=== PATIENT | female | born 1995 | race Caucasian/White ===

== ENCOUNTER → 2018-07-06 11:59 | Outpatient (CLI) | payer SELFPAY ==
[2018-07-06 12:51] LABS: Basophils % 0.6 % (0.1-2.0); Eosinophils # 0.1 K/mm3 (0.0-0.4); Eosinophils % 2.1 % (0.1-12.0); Hematocrit 42.2 % (37.0-47.0); Hemoglobin 14.8 g/dL (12.2-16.2); Lymphocytes # 2.1 K/mm3 (0.7-4.5); Lymphocytes % 35.6 % (10-50); Mean Corpuscular HGB Conc 35.1 g/dL (31.8-35.4); Mean Corpuscular Hemoglobin 29.7 pg (27.0-31.2); Mean Corpuscular Volume 84.7 fl (81-99); Mean Platelet Volume 6.7 fl (7.4-10.4); Monocytes # 0.3 K/mm3 (0.1-1.0); Monocytes % 4.6 % (1.7-9.3); Neutrophils # 3.3 K/mm3 (1.8-7.8); Neutrophils % 57.2 % (37.0-80.0); Platelet Count 269 K/mm3 (142-424); Red Blood Count 4.98 M/mm3 (4.20-5.40); Red Cell Distribution Width 13.1 % (11.5-17.5); White Blood Count 5.8 K/mm3 (4.8-10.8)
[2018-07-06 13:53] LABS: Alanine Aminotransferase 24 U/L (12-78); Albumin Level 4.5 gm/dL (3.4-5.0); Albumin/Globulin Ratio 1.3 (1.1-1.8); Alkaline Phosphatase 91 U/L (46-116); Anion Gap 12.4 mEq/L (5-15); Aspartate Amino Transferase 15 U/L (15-37); Bilirubin,Total 0.8 mg/dL (0.2-1.0); Blood Urea Nitrogen 16 mg/dL (7-18); Calcium 9.2 mg/dL (8.5-10.1); Carbon Dioxide 29 mmol/L (21.0-32.0); Chloride 103 mmol/L (98-107); Creatinine,Serum 0.72 mg/dL (0.55-1.02); Estimated Glomerular Filt Rate 101 ml/min (>60); GFR (African American) 123 ML/MIN (>60); Globulin 3.6 gm/dl (1.3-3.2); Glucose 81 mg/dL (74-106); Potassium 4.4 mmoL/L (3.5-5.1); Sodium 140 mmol/L (136-145); Thyroid Stimulating Hormone 31.82 uIU/ml (0.358-3.740); Total Protein,Serum 8.1 gm/dL (6.4-8.2)
[2018-07-06 15:45] LABS: Free T4 (Free Thyroxine) 0.64 ng/dl (0.76-1.46)
== END ==
PROVIDERS: Internal Medicine Adolescent Medicine; Visit Provider Nurse Practitioner Family
DX: F41.8 Other specified anxiety disorders (principal); R79.89 Other specified abnormal findings of blood chemistry
CPT/HCPCS: 36415; 80053; 84439; 84443; 85025

== ENCOUNTER → 2018-07-31 13:54 | Outpatient (CLI) | payer BC, SELFPAY ==
--- NOTE | 2018-07-31 14:03 | US_ITS ---
US thyroid HISTORY: ITS.REASON: ELEVATED TSH ORDERING PHYSICIAN: Roxanne Pina APRN PATIENT AGE: 23 years Comparison: None FINDINGS: Right lobe: 1.8 x 4.3 x 2.0 cm. Left lobe: 1.6 x 4.3 x 1.9 cm. Isthmus: Unremarkable. Both thyroid lobes are heterogeneous. There is also some bilateral nonspecific increased vascularity. Posterior to the lower lobe on the left side there is a 8.1 mm solid appearing focus which could be pedunculated nodule or perhaps lymph node. Parathyroid adenoma cannot be ruled out as well. Also noted in the mid left lobe is a small subtle hypoechoic lesion measuring 8.4 mm. IMPRESSION: Heterogeneous thyroid tissue with some increased vascularity. Correlate to rule out thyroiditis. Small nonspecific left lower lobe nodule which could be followed at 6 months. This does not warrant biopsy at this time. Posterior lower pole left thyroid nodule as discussed above. Differential would include lymph node, pedunculated thyroid nodule or parathyroid adenoma.
== END ==
PROVIDERS: PCP Nurse Practitioner Family; Visit Provider Nurse Practitioner Family
DX: R79.89 Other specified abnormal findings of blood chemistry (principal)
CPT/HCPCS: 76536

== ENCOUNTER → 2018-09-04 10:58 | Outpatient (CLI) | payer BC, SELFPAY ==
[2018-09-04 12:04] LABS: Anion Gap 13.2 mEq/L (5-15); Blood Urea Nitrogen 16 mg/dL (7-18); Calcium 9.1 mg/dL (8.5-10.1); Carbon Dioxide 29 mmol/L (21.0-32.0); Chloride 105 mmol/L (98-107); Creatinine,Serum 0.82 mg/dL (0.55-1.02); Estimated Glomerular Filt Rate 87 ml/min (>60); Free T4 (Free Thyroxine) 1.07 ng/dl (0.76-1.46); GFR (African American) 105 ML/MIN (>60); Glucose 84 mg/dL (74-106); Potassium 4.2 mmoL/L (3.5-5.1); Sodium 143 mmol/L (136-145); Thyroid Stimulating Hormone 2.13 uIU/ml (0.358-3.740)
[2018-09-07 10:37] LABS: Thyroglobulin Level 4.2 IU/mL (0.0-0.9); Thyroid Peroxidase Antibodies 261 IU/mL (0-34); Vitamin D 25 Hydroxy 40.5 ng/mL (30.0-100.0)
== END ==
PROVIDERS: Visit Provider Nurse Practitioner Family
DX: E03.9 Hypothyroidism, unspecified (principal)
CPT/HCPCS: 36415; 80048; 82652; 84439; 84443; 86376; 86800

== ENCOUNTER → 2018-11-13 13:19 | Outpatient (CLI) | payer BC, SELFPAY ==
[2018-11-13 15:51] LABS: Free T4 (Free Thyroxine) 0.95 ng/dl (0.76-1.46); Thyroid Stimulating Hormone 2.83 uIU/ml (0.358-3.740)
== END ==
PROVIDERS: Visit Provider Nurse Practitioner Family
DX: E06.3 Autoimmune thyroiditis (principal)
CPT/HCPCS: 36415; 84439; 84443

== ENCOUNTER → 2020-01-30 11:57 | Outpatient (CLI) | payer BC, SELFPAY ==
[2020-01-30 13:34] LABS: Adenovirus,PCR Not Detected (NotDetected); Bordetella Pertussis Not Detected (NotDetected); Chlamydophila Pneumoniae, PCR Not Detected (NotDetected); Coronavirus 19, PCR Not Detected (NotDetected); Coronavirus 229E Not Detected (NotDetected); Coronavirus NL63 Not Detected (NotDetected); Coronavirus OC43 Not Detected (NotDetected); Coronovirus HKU1,PCR Not Detected (NotDetected); Human Metapneumovirus Not Detected (NotDetected); Influenza A, PCR Not Detected (NotDetected); Influenza AH1, 2009 Not Detected (NotDetected); Influenza AH1, PCR Not Detected (NotDetected); Influenza AH3,PCR Not Detected (NotDetected); Influenza B, PCR Not Detected (NotDetected); Mycoplasma Pneumoniae, PCR Not Detected (NotDetected); Parainfluenza 1, PCR Not Detected (NotDetected); Parainfluenza 2, PCR Not Detected (NotDetected); Parainfluenza 3, PCR Not Detected (NotDetected); Parainfluenza 4, PCR Not Detected (NotDetected); Respiratory Syncytial Virus Not Detected (NotDetected); Rhinovirus/Enterovirus Not Detected (NotDetected)
== END ==
PROVIDERS: PCP Internal Medicine Adolescent Medicine; Visit Provider Internal Medicine Adolescent Medicine
DX: Z03.818 Encounter for observation for suspected exposure to other biological agents ruled out (principal)
CPT/HCPCS: 87581; 87633; 87798

== ENCOUNTER 2020-02-25 12:05 | Emergency (ER) | payer BC, SELFPAY ==
[2020-02-25 12:05] VITALS: BP 102/58; PULSE 94; RESP 14; TEMP 36.2; O2SAT 97; BMI 22.8
--- NOTE | 2020-02-25 12:46 | HMH.EDUTC ---
[facility] Disposition Clinical Impression: Encounter for laboratory testing for COVID-19 virus Disposition: Home, Self-Care Condition on Discharge: Good Instructions: DI for COVID-19 (Suspected or Confirmed ), Coronavirus Disease 2019, Preventing the Spread of Coronavirus Discharge Instructions Additional Instructions: *Monitor Temp, Over the counter Motrin or Tylenol as directed/as needed Tylenol every 4 hours and Motrin every 6 hours (as long as your family doctor has told you that you can take it) for fever or pain. and straight to ER if unable to lower temp less than 101.0 after medication given Follow up IMMEDIATELY for new or worsening symptoms or no Noticeable improvement over the next 48-72 hours. 911 for difficulty breathing or swallowing You were tested for today for COVID19 your test result should be back in the next 24-48 hours, you may call to the [facility] to see if your test results are back in the next 48 hours [phone] [facility] hours are 9am-9pm You was given a handout with instructions for Self Quarantine and Self isolation for while you wait on test results and what to do if they are positive If you are positive the Health Dept will be contacting you also Referrals: Chago Ireland MD [Primary Care Provider] - As needed Forms: Work/School Release Time of Disposition: 12:48 Medical Decision Making - Dariel Inquiry Pt receiving controlled substance: No Dariel was queried for this patient: No Vital Signs: 02/25/20 12:05 Temperature 97.2 F L Temperature Source Oral Pulse Rate [Right Brachial] 94 H Respiratory Rate 14 Blood Pressure [Right Arm] 102/58 L Blood Pressure Mean [Right Arm] 72 Blood Pressure Source [Right Arm] Automatic Cuff Blood Pressure Position [Right Arm] Sitting 02 Sat by Pulse Oximetry 97 Oxygen Delivery Method Room Air Orders (Tests/Meds): ORDERS Category Date Time Status Covid-19 Nasal PCR Sendout P&C Routine Lab 02/25/20 12:15 Received [facility] HPI - General Stated complaint: covid test for work Time Seen by Provider: 02/25/20 12:46 Mode of Arrival: Ambulatory Source of Information: Patient Limitations: No Limitations Description of Symptoms (Recalled from Triage Doc. by RN): PATIENT NEEDING COVID TEST FOR WORK HEENT Symptoms (Recalled from RN notes): No Resp Symptoms (Recalled from RN notes): No Skin Symptoms (Recalled from RN notes): No MS Symptoms (Recalled from RN notes): No Functional Status (Recalled from RN notes): WNL - History of Present Illness Provider Complaint: Patient state that work told her that she needed to get tested for COVID due to possible exposure State that she is not having any symptoms just needed a COVID test - Related Data Allergies Allergy/AdvReac Type Severity Reaction Status Date / Time Sulfa (Sulfonamide Allergy Intermediate I-HIVES Verified 02/25/20 12:25 Antibiotics) [SULFA (SULFONAMIDE ANTIBIOTICS)] - Worker's Comp Is this a Worker's Comp case?: No [facility] History - Hepatitis A Screen Drug use history?: No High risk sexual behaviors?: No History of sexually transmitted infection?: No Currently employed?: No Childcare worker?: No Do you have indoor plumbing?: Yes Do you have electricity?: Yes Attestation statement:: This patient has been screened for Hepatitis A risk factors. I have reviewed the patient's past medical history: Yes - Social History Alcohol Intake: never Occupational Status: other ROS Obtained: Yes All systems reviewed & no additional complaints, Yes Systems reviewed as appropriate & no additional complaints - Constitutional Constitutional: Reports system reviewed and no additional complaints, except as docu, Denies body ache, Denies chills, Denies fever(s), Denies headache(s) - ENT Ears, Nose, Mouth, and Throat: Reports system reviewed and no additional complaints, except as docu - Cardiovascular Cardiovascular: Reports system reviewed and no additional complaints, except as docu
[2020-02-25 12:50] VITALS: BP 102/58; PULSE 94; RESP 14; TEMP 36.2; O2SAT 97
[2020-02-26 09:49] LABS: Covid-19 Nasal PCR Sendout P&C NEGATIVE
== END 2020-02-25 13:01 | disposition home or self-care (01) ==
PROVIDERS: Emergency Provider Nurse Practitioner; PCP Internal Medicine Adolescent Medicine
DX: Z20.822 Contact with and (suspected) exposure to COVID-19 (principal); Z88.2 Allergy status to sulfonamides
CPT/HCPCS: 99202; G0463; U0004

== ENCOUNTER 2020-05-09 22:55 | Emergency (ER) | payer BC, SELFPAY ==
[2020-05-09 22:56] VITALS: BP 127/84; PULSE 89; RESP 22; TEMP 36.4; O2SAT 100; BMI 23.8
[2020-05-09 23:30] VITALS: BP 101/74; PULSE 78; RESP 16; O2SAT 99
[2020-05-09 23:45] LABS: Microscopic, Urine URINE MICROSCOPIC (MICROSCOPIC)
[2020-05-09 23:48] LABS: Appearance,Urine CLEAR (Clear); Bilirubin,Urine Negative (Negative); Blood, Urine 2+ (Negative); Color,Urine YELLOW (Yellow); Glucose,Urine (UA) Negative (Negative); Ketones,Urine Negative (Negative); Leukocyte Esterase,Urine 1+ (Negative); Nitrate,Urine Negative (Negative); Protein,Urine Negative (Negative); Specific Gravity, Urine 1.025 (1.005-1.030); Urobilinogen,Urine 0.2 EU/dl (0.2)
[2020-05-09 23:52] LABS: Basophils # 0.1 K/mm3 (0-0.2); Basophils % 0.5 % (0.1-2.0); Eosinophils # 0.2 K/mm3 (0.0-0.4); Eosinophils % 2.4 % (0.1-12.0); Hematocrit 41.2 % (37.0-47.0); Hemoglobin 14.1 g/dL (12.2-16.2); Lymphocytes # 2.5 K/mm3 (0.7-4.5); Lymphocytes % 25.2 % (10-50); Mean Corpuscular HGB Conc 34.3 g/dL (31.8-35.4); Mean Corpuscular Hemoglobin 30.4 pg (27.0-31.2); Mean Corpuscular Volume 88.8 fl (81-99); Mean Platelet Volume 7.3 fl (7.4-10.4); Monocytes # 0.5 K/mm3 (0.1-1.0); Monocytes % 5.3 % (1.7-9.3); Neutrophils # 6.6 K/mm3 (1.8-7.8); Neutrophils % 66.7 % (37.0-80.0); Platelet Count 269 K/mm3 (142-424); Red Blood Count 4.64 M/mm3 (4.20-5.40); Red Cell Distribution Width 12.8 % (11.5-17.5); White Blood Count 9.9 K/mm3 (4.8-10.8)
[2020-05-09 23:54] LABS: Urine Pregnancy, HCG Qual. Negative (Negative)
[2020-05-10] VITALS: BP 109/64; PULSE 75; RESP 16; O2SAT 99
[2020-05-10] LABS: Alanine Aminotransferase 15 U/L (12-78); Albumin/Globulin Ratio 1.5 (1.1-1.8); Alkaline Phosphatase 71 U/L (38-126); Amylase 73 U/L (30-110); Anion Gap 14.3 mEq/L (5-15); Aspartate Amino Transferase 27 U/L (14-36); Bilirubin,Total 0.5 mg/dl (0.2-1.3); Blood Urea Nitrogen 14 mg/dl (7-17); Calcium 9.5 mg/dl (8.4-10.2); Carbon Dioxide 24 mmol/L (22.0-30.0); Chloride 109 mmol/L (98-107); Creatinine Clearance Estimated 101 mL/min (50-200); Estimated Glomerular Filt Rate 88 ml/min (>60); GFR (African American) 107 ML/MIN (>60); Globulin 3.3 g/dL (1.3-3.2); Glucose 80 mg/dl (74-100); Lipase 81 U/L (23-300); Potassium 3.3 mmoL/L (3.5-5.1); Sodium 144 mmol/L (136-145); Total Protein,Serum 8.3 g/dl (6.3-8.2)
--- NOTE | 2020-05-10 00:01 | CT_ITS ---
PROCEDURE: CT ABDOMEN PELVIS W CON CLINICAL INDICATION: abd pain With nausea and diarrhea COMPARISON: No exams were available for comparison TECHNIQUE: IV Contrast: 75ML OPTIRAY 350 Oral Contrast none given Axial images obtained with sagittal and coronal reformats. All CT scans at the facility use one or more dose reduction, viz: automated exposure control, ma/kV adjustment per patient size (including targeted exams where dose is matched to indication, i.e. head), or iterative reconstruction technique. FINDINGS: Lower thorax: No acute finding ABDOMEN: Liver: No masses or biliary dilatation. Gallbladder: Somewhat contracted but no definite gallstones are seen Pancreas: No masses or peripancreatic fluid collections. Spleen: unremarkable Adrenals: unremarkable Kidneys/ureters: The kidneys appear normal in size and show symmetrical function. There is an 6-7 mm mm nonobstructing calculus lower pole calyx left kidney. ABDOMEN & PELVIS: Stomach bowel: The stomach is distended with ingested food particles but otherwise appears normal. The small bowel is normal. The appendix is not definitely visualized but no pericecal inflammatory changes. There is some liquid stool in the ascending colon, lower descending sigmoid colon are decompressed. Peritoneum: No abnormal fluid collections. No obvious inflammatory changes. No free air. Lymph nodes: No enlarged lymph nodes apparent. Vasculature: No evidence of abdominal aortic aneurysm. No retroperitoneal hemorrhage evident. Bones: No acute fracture PELVIS: Reproductive: The uterus is normal size and in the midline Bladder: . urinary bladder is decompressed, there is no free fluid in the pelvis Appendix: Not definitely visualized IMPRESSION: Findings consistent with history of diarrhea, there is no evidence of large or small small-bowel obstruction and no other significant abnormality is noted Dictated by: Dr. Darrell Bailey MD 05/10/2020 09:36 Dr. Darrell Bailey MD in [place] 05/10/2020 09:36
[2020-05-10 00:03] LABS: Bacteria,Urine 3+ /lpf; RBC,Urine Occasional #/hpf (0-3); Squamous Epithelial Cell,Urine 50-100 #/hpf (0-5); WBC,Urine 20-50 #/hpf (0-3)
[2020-05-10 00:05] LABS: C-Reactive Protein 0.5 mg/L (0-4)
[2020-05-10 00:19] LABS: Procalcitonin 0.044 ng/mL (0.0-2.0)
[2020-05-10 00:29] LABS: Erythrocyte Sedimentation Rate 20 mm/hr (0-20)
[2020-05-10 00:30] VITALS: BP 104/71; PULSE 68; RESP 16; O2SAT 99
--- NOTE | 2020-05-10 00:43 | HMH.EDNVD ---
ED Disposition Clinical Impression: Abdominal pain Qualifiers: Abdominal location: epigastric Qualified Code(s): R10.13 - Epigastric pain Adverse effects of medication Qualifiers: Encounter type: initial encounter Qualified Code(s): T50.905A - Adverse effect of unspecified drugs, medicaments and biological substances, initial encounter Disposition: Home, Self-Care Condition on Discharge: Good Instructions: DI for Acute Abdominal Pain Additional Instructions: fluids and call pcp about urine culture - hold flagyl at this tiime Prescriptions: ondansetron HCL [Zofran 4mg Tab] 4 mg PO TID #21 tab Transmission Status: Pending to [id number] Referrals: Chago Ireland MD [Primary Care Provider] - - Critical Care Critical Care Time: No Attestation: On 05/09/20, the high probability of a clinically significant, sudden or life threatening deterioration of the following system(s) required my full and direct attention, intervention and personal management. The time I documented below is in addition to time spent performing reported procedures but includes the following listed in this critical care notation. Medical Decision Making - Medical Records Medical records reviewed: Yes: I reviewed the patient's medical records. - Dariel Inquiry Pt receiving controlled substance: No Vital Signs: 05/09/20 22:56 Temperature 97.6 F Temperature Source Oral Pulse Rate [Right Radial] 89 Respiratory Rate 22 Blood Pressure [Right Arm] 127/84 Blood Pressure Mean [Right Arm] 98 Blood Pressure Source [Right Arm] Automatic Cuff Blood Pressure Position [Right Arm] Sitting 02 Sat by Pulse Oximetry 100 Oxygen Delivery Method Room Air - Lab Data Lab results reviewed: Yes: I reviewed the patient's lab results. Lab Results 05/09/20 23:25: Urine Color Yellow, Urine Appearance Clear, Urine pH 6.0, Ur Specific [place] 1.025, Urine Protein Negative, Urine Glucose (UA) Negative, Urine Ketones Negative, Urine Blood 2+, Urine Nitrate Negative, Urine Bilirubin Negative, Urine Urobilinogen 0.2, Ur Leukocyte Esterase 1+ A, Urine RBC Occasional, Urine WBC 20-50, Ur Squamous Epith Cells 50-100, Urine Bacteria 3+ 05/09/20 23:25: Urine HCG, Qual Negative 05/09/20 23:45: WBC 9.9, RBC 4.64, Hgb 14.1, Hct 41.2, MCV 88.8, MCH 30.4, MCHC 34.3, RDW 12.8, Plt Count 269, MPV 7.3 L, Neut % (Auto) 66.7, Lymph % (Auto) 25.2, [place] % (Auto) 5.3, Eos % (Auto) 2.4, Baso % (Auto) 0.5, Neut # (Auto) 6.6, Lymph # (Auto) 2.5, [place] # (Auto) 0.5, Eos # (Auto) 0.2, Baso # (Auto) 0.1, ESR 20 05/09/20 23:45: Sodium 144, Potassium 3.3 L, Chloride 109 H, Carbon Dioxide 24, Anion Gap 14.3, BUN 14, Creatinine 0.80, Estimated Creat Clear 101, Estimated GFR 88, Est GFR ( Amer) 107, Glucose 80, Calcium 9.5, Total Bilirubin 0.5, AST 27, ALT 15, Alkaline Phosphatase 71, C-Reactive Protein 0.5, Total Protein 8.3 H, Albumin 5.0, Globulin 3.3 H, Albumin/Globulin Ratio 1.5, Amylase 73, Lipase 81, Procalcitonin 0.044 Result diagrams: 05/09/20 23:45 05/09/20 23:45 Orders (Tests/Meds): ED MEDICATIONS Generic Name Dose Route Start Last Admin Trade Name Freq PRN Reason Stop Dose Admin Sodium Chloride 1,000 mls @ 999 mls/hr 05/09/20 23:45 05/09/20 23:59 Sod Chlor 0.9% 1000ml Bag IV 05/10/20 00:45 999 mls/hr .Q1H1M DELIA Administration Discontinued Medications Generic Name Dose Route Start Last Admin Trade Name Freq PRN Reason Stop Dose Admin Iopamidol 75 ml 05/10/20 00:18 05/10/20 00:20 Iopamidol-370 (76%);100ml Bottle IV 05/10/20 00:19 75 ml ONCE ONE Administration Ketorolac Tromethamine 30 mg 05/09/20 23:41 05/09/20 23:59 Ketorolac 30mg/Ml Vial IV 05/09/20 23:42 30 mg ONCE ONE Administration Methylprednisolone Sodium Succinate 125 mg 05/10/20 00:46 05/10/20 00:47 Methylprednisolone Sod Succ 125mg Vial IV 05/10/20 00:47 125 mg ONCE ONE Administration Ondansetron HCl 4 mg 05/09/20 23:41 05/09/20 23:59 Ondanset
[2020-05-10 01:48] VITALS: BP 94/58; PULSE 77; RESP 16; TEMP 36.6; O2SAT 100
== END 2020-05-10 01:50 | disposition home or self-care (01) ==
PROVIDERS: Emergency Provider Emergency Medicine; PCP Internal Medicine Adolescent Medicine
DX: R10.12 Left upper quadrant pain (principal); T49.0X5A Adverse effect of local antifungal, anti-infective and anti-inflammatory drugs, initial encounter; Z88.2 Allergy status to sulfonamides
CPT/HCPCS: 74177; 80053; 81001; 81025; 82150; 83690; 84145; 85025; 85651; 86140; 87086; 96365; 96375; 99283; J2405; Q9967

== ENCOUNTER → 2020-06-16 14:55 | Outpatient (CLI) | payer BC, SELFPAY ==
--- NOTE | 2020-06-16 14:57 | US_ITS ---
PROCEDURE: US THYROID CLINICAL INDICATION: hypo COMPARISON: US THY US thyroid from 07/31/2018 FINDINGS: Right lobe: 4.7 x 2 x 1.8 centimeters Left lobe: 4.7 x 2.1 x 1.9 centimeters Isthmus: 0.5 centimeters Additional findings: Heterogeneous echogenicity of the thyroid gland is noted. No focal nodules are identified on the background of heterogeneously echogenic thyroid tissue. Thyromegaly is noted. There is bilateral increased vascularity. IMPRESSION: Heterogeneous enlarged thyroid gland, consistent with known hypothyroidism. No focal nodules are identified on the background of heterogeneously echogenic thyroid tissue. Dictated by: Caridad Gay 06/16/2020 17:05 Caridad Gay in [place] 06/16/2020 17:05
[2020-06-16 16:25] LABS: Free T4 (Free Thyroxine) 0.92 ng/dl (0.78-2.19)
[2020-06-16 16:40] LABS: Thyroid Stimulating Hormone 8.56 uIU/mL (0.465-4.68)
[2020-07-05 11:34] LABS: Thyroid Peroxidase Antibodies 262; Thyroid Stimulating Immunoglob <0.10
== END ==
PROVIDERS: PCP Internal Medicine Adolescent Medicine; Visit Provider Otolaryngology
DX: E03.9 Hypothyroidism, unspecified (principal)
CPT/HCPCS: 36415; 76536; 84439; 84443; 84445; 86376

== ENCOUNTER → 2020-06-16 15:16 | Outpatient (CLI) | payer BC, SELFPAY | PROVIDERS: Visit Provider Otolaryngology | DX: E03.9 Hypothyroidism, unspecified (principal) | CPT/HCPCS: 36415; 84439; 84443; 84445; 86376 ==

== ENCOUNTER → 2020-07-27 17:05 | Outpatient (CLI) | payer BC, SELFPAY ==
[2020-07-27 19:08] LABS: Free T4 (Free Thyroxine) 0.92 ng/dl (0.78-2.19)
[2020-07-27 19:22] LABS: Thyroid Stimulating Hormone 6.23 uIU/mL (0.465-4.68)
[2020-07-29 09:54] LABS: Thyroid Peroxidase Antibodies 256 IU/mL (0-34)
[2020-07-30 05:16] LABS: Thyroid Stimulating Immunoglob <0.10 IU/L (0.00-0.55)
== END ==
PROVIDERS: PCP Internal Medicine Adolescent Medicine; Visit Provider Otolaryngology
DX: E03.9 Hypothyroidism, unspecified (principal)
CPT/HCPCS: 36415; 84439; 84443; 84445; 86376

== ENCOUNTER → 2020-11-19 08:58 | Outpatient (CLI) | payer BC, SELFPAY | PROVIDERS: Visit Provider Nurse Practitioner Family | DX: R30.0 Dysuria (principal) | CPT/HCPCS: 87086 ==

== ENCOUNTER → 2021-01-07 12:43 | Outpatient (CLI) | payer BC, SELFPAY ==
[2021-01-07 13:08] VITALS: BMI 25.7
== END ==
PROVIDERS: PCP Internal Medicine Adolescent Medicine; Visit Provider Nurse Practitioner
DX: U07.1 COVID-19 (principal)
CPT/HCPCS: C9803; U0003; U0005

== ENCOUNTER 2021-03-24 23:37 | Emergency (ER) | payer BC, SELFPAY ==
[2021-03-24 23:38] VITALS: BP 124/76; PULSE 94; RESP 19; TEMP 36.9; O2SAT 100; BMI 21.9
[2021-03-25 00:15] VITALS: BMI 21.9
[2021-03-25 00:20] LABS: Microscopic, Urine URINE MICROSCOPIC (MICROSCOPIC)
[2021-03-25 00:22] LABS: Appearance,Urine SL CLOUDY (Clear); Bilirubin,Urine Negative (Negative); Blood, Urine Negative (Negative); Color,Urine YELLOW (Yellow); Glucose,Urine (UA) Negative (Negative); Ketones,Urine Negative (Negative); Leukocyte Esterase,Urine 1+ (Negative); Nitrate,Urine Negative (Negative); Protein,Urine Negative (Negative); Specific Gravity, Urine >= 1.030 (1.005-1.030); Urobilinogen,Urine 0.2 EU/dl (0.2)
[2021-03-25 00:29] LABS: Bacteria,Urine 2+ /lpf; RBC,Urine Occasional #/hpf (0-3); Urine Pregnancy, HCG Qual. Negative (Negative)
--- NOTE | 2021-03-25 00:37 | CT_ITS ---
PROCEDURE INFORMATION: Exam: CT Abdomen And Pelvis With Contrast Exam date and time: 03/25/2021 12:37 AM Age: 25 years old Clinical indication: Abdominal pain; Additional info: Upper abd pain with nausea TECHNIQUE: Imaging protocol: Computed tomography of the abdomen and pelvis with contrast. Radiation optimization: All CT scans at this facility use at least one of these dose optimization techniques: automated exposure control; mA and/or kV adjustment per patient size (includes targeted exams where dose is matched to clinical indication); or iterative reconstruction. Contrast material: ISOVUE; Contrast volume: 75 ml; Contrast route: IV; COMPARISON: CT ABDOMEN PELVIS W CON 05/10/2020 12:09 AM FINDINGS: Lungs: Hyperexpansion/air trapping noted in the posterior basal segment of the left lower lobe, similar to prior. Liver: Unremarkable. No intrahepatic biliary dilation. Gallbladder and bile ducts: No gallbladder wall thickening. No radio-opaque stones. No common bile duct dilation. Pancreas: Unremarkable. No main pancreatic duct dilation. Spleen: Normal. No splenomegaly. Adrenal glands: Unremarkable. Kidneys and ureters: Nonobstructing 0.4 cm caliceal calculus at the left lower pole, unchanged. No hydronephrosis. Stomach and bowel: No obstruction. No abnormal bowel wall thickening. Appendix: No evidence of appendicitis. Intraperitoneal space: Trace nonspecific pelvic free fluid, possibly physiologic. Vasculature: No abdominal aortic aneurysm. Lymph nodes: Scattered prominent mesenteric lymph nodes, not frankly enlarged and likely reactive. Urinary bladder: Unremarkable as visualized. No wall thickening. Reproductive: Left ovarian corpus luteum cyst. There is a 2.4 x 2.0 cm complex right ovarian cystic mass measuring above simple fluid attenuation. Bones/joints: No acute fracture. Soft tissues: Unremarkable. IMPRESSION: 1. Indeterminate 2.4 x 2.0 cm complex right ovarian cyst, new since 05/10/2020. Further evaluation with prompt non-emergent ultrasound or prompt non-emergent MRI is recommended to characterize. (Reference: Stanley) 2. Trace nonspecific pelvic free fluid, could be physiologic. 3. Nonobstructing 0.4 cm left lower pole renal calculus. References: Stanley et al. Management of Incidental Adnexal Findings on CT and MRI: A White Paper of the ACR Incidental Findings Committee, J Am Luis Radiol. 2019;17(2):248-254.
[2021-03-25 00:42] LABS: Basophils # 0.1 K/mm3 (0-0.2); Basophils % 0.5 % (0.1-2.0); Eosinophils # 0.2 K/mm3 (0.0-0.4); Eosinophils % 1.2 % (0.1-12.0); Hematocrit 45.6 % (37.0-47.0); Hemoglobin 15.5 g/dL (12.2-16.2); Lymphocytes # 2.3 K/mm3 (0.7-4.5); Lymphocytes % 17.9 % (10-50); Mean Corpuscular HGB Conc 33.9 g/dL (31.8-35.4); Mean Corpuscular Hemoglobin 30.6 pg (27.0-31.2); Mean Corpuscular Volume 90.5 fl (81-99); Mean Platelet Volume 7.4 fl (7.4-10.4); Monocytes # 0.5 K/mm3 (0.1-1.0); Monocytes % 4.2 % (1.7-9.3); Neutrophils # 9.8 K/mm3 (1.8-7.8); Neutrophils % 76.3 % (37.0-80.0); Platelet Count 284 K/mm3 (142-424); Red Blood Count 5.05 M/mm3 (4.20-5.40); Red Cell Distribution Width 12.8 % (11.5-17.5); White Blood Count 12.8 K/mm3 (4.8-10.8)
[2021-03-25 00:49] LABS: Amylase 72 U/L (30-110)
[2021-03-25 00:50] LABS: Alanine Aminotransferase 18 U/L (12-78); Albumin Level 5.1 g/dl (3.5-5.0); Albumin/Globulin Ratio 1.5 (1.1-1.8); Alkaline Phosphatase 75 U/L (38-126); Anion Gap 15.1 mEq/L (5-15); Aspartate Amino Transferase 30 U/L (14-36); Bilirubin,Total 0.7 mg/dl (0.2-1.3); Blood Urea Nitrogen 13 mg/dl (7-17); Calcium 10.1 mg/dl (8.4-10.2); Carbon Dioxide 28 mmol/L (22.0-30.0); Chloride 102 mmol/L (98-107); Creatinine Clearance Estimated 106 mL/min (50-200); Estimated Glomerular Filt Rate 103 ml/min (>60); GFR (African American) 124 ML/MIN (>60); Globulin 3.5 g/dL (1.3-3.2); Glucose 110 mg/dl (74-100); Lipase 64 U/L (23-300); Potassium 4.1 mmoL/L (3.5-5.1); Sodium 141 mmol/L (136-145); Total Protein,Serum 8.6 g/dl (6.3-8.2)
--- NOTE | 2021-03-25 00:51 | HMH.EDNVD ---
ED Disposition Clinical Impression: Abdominal pain Qualifiers: Abdominal location: epigastric Qualified Code(s): R10.13 - Epigastric pain Disposition: Home, Self-Care Condition on Discharge: Good Instructions: DI for Acute Abdominal Pain Additional Instructions: see pcpfor follow up Referrals: Chago Ireland MD [Primary Care Provider] - - Critical Care Critical Care Time: No Attestation: On 03/24/21, the high probability of a clinically significant, sudden or life threatening deterioration of the following system(s) required my full and direct attention, intervention and personal management. The time I documented below is in addition to time spent performing reported procedures but includes the following listed in this critical care notation. Medical Decision Making - Medical Records Medical records reviewed: Yes: I reviewed the patient's medical records. - Dariel Inquiry Pt receiving controlled substance: No Vital Signs: 03/24/21 23:38 Temperature 98.4 F Temperature Source Oral Pulse Rate [Right] 94 H Respiratory Rate 19 Blood Pressure [Right Arm] 124/76 Blood Pressure Mean [Right Arm] 92 Blood Pressure Source [Right Arm] Automatic Cuff 02 Sat by Pulse Oximetry 100 Oxygen Delivery Method Room Air - Lab Data Lab results reviewed: Yes: I reviewed the patient's lab results. Lab Results 03/25/21 00:13: Urine Color Yellow, Urine Appearance Sl cloudy, Urine pH 6.0, Ur Specific [place] >= 1.030, Urine Protein Negative, Urine Glucose (UA) Negative, Urine Ketones Negative, Urine Blood Negative, Urine Nitrate Negative, Urine Bilirubin Negative, Urine Urobilinogen 0.2, Ur Leukocyte Esterase 1+ A, Urine RBC Occasional, Urine WBC 10-20, Ur Squamous Epith Cells 10-20, Urine Bacteria 2+ 03/25/21 00:13: Urine HCG, Qual Negative 03/25/21 00:32: ESR 19 03/25/21 00:32: C-Reactive Protein 0.9, Amylase 72, Procalcitonin 0.039 03/25/21 00:32: WBC 12.8 H, RBC 5.05, Hgb 15.5, Hct 45.6, MCV 90.5, MCH 30.6, MCHC 33.9, RDW 12.8, Plt Count 284, MPV 7.4, Neut % (Auto) 76.3, Lymph % (Auto) 17.9, [place] % (Auto) 4.2, Eos % (Auto) 1.2, Baso % (Auto) 0.5, Neut # (Auto) 9.8 H, Lymph # (Auto) 2.3, [place] # (Auto) 0.5, Eos # (Auto) 0.2, Baso # (Auto) 0.1 03/25/21 00:32: Sodium 141, Potassium 4.1, Chloride 102, Carbon Dioxide 28, Anion Gap 15.1 H, BUN 13, Creatinine 0.70, Estimated Creat Clear 106, Estimated GFR 103, Est GFR ( Amer) 124, Glucose 110 H, Calcium 10.1, Total Bilirubin 0.7, AST 30, ALT 18, Alkaline Phosphatase 75, Total Protein 8.6 H, Albumin 5.1 H, Globulin 3.5 H, Albumin/Globulin Ratio 1.5, Lipase 64 Result diagrams: 03/25/21 00:32 03/25/21 00:32 Orders (Tests/Meds): ED MEDICATIONS Generic Name Dose Route Start Last Admin Trade Name Freq PRN Reason Stop Dose Admin Sodium Chloride 1,000 mls @ 999 mls/hr 03/25/21 00:45 03/25/21 00:59 Sod Chlor 0.9% 1000ml Bag IV 03/25/21 01:45 999 mls/hr .Q1H1M DELIA Administration Sodium Chloride 8 ml 03/25/21 00:41 Sodium Chloride 0.9% 10ml Vial IV 04/24/21 00:40 NEEDED PRN dilute pepcid Discontinued Medications Generic Name Dose Route Start Last Admin Trade Name Freq PRN Reason Stop Dose Admin Famotidine 20 mg 03/25/21 00:41 03/25/21 00:57 Famotidine 20mg/2ml Vial IV 03/25/21 00:42 20 mg ONCE ONE Administration Iopamidol 75 ml 03/25/21 01:15 03/25/21 01:16 Iopamidol-370 (76%);100ml Bottle IV 03/25/21 01:16 75 ml ONCE ONE Administration Ketorolac Tromethamine 30 mg 03/25/21 01:00 03/25/21 01:05 Ketorolac 30mg/Ml Vial IV 03/25/21 01:01 30 mg ONCE ONE Administration Metoclopramide HCl 10 mg 03/25/21 00:41 03/25/21 00:57 Metoclopramide Hcl 10mg/2ml Vial IVP 03/25/21 00:42 10 mg ONCE ONE Administration Ondansetron HCl 4 mg 03/25/21 00:41 03/25/21 00:57 Ondansetron 4mg/2ml Vial IV 03/25/21 00:42 4 mg ONCE ONE Administration Sodium Chloride 10 ml 03/25/21 01:15 03/25/21 01:16 Richardi
[2021-03-25 00:55] LABS: C-Reactive Protein 0.9 mg/L (0-4)
--- NOTE | 2021-03-25 01:05 | PC.NURSE ---
pt to ct, staff sitting with pt's child at this time
[2021-03-25 01:08] LABS: Erythrocyte Sedimentation Rate 19 mm/hr (0-20)
[2021-03-25 01:09] LABS: Procalcitonin 0.039 ng/mL (0.0-2.0)
[2021-03-25 02:18] VITALS: BP 123/78; PULSE 68; RESP 16; TEMP 36.9; O2SAT 98
== END 2021-03-25 02:22 | disposition home or self-care (01) ==
PROVIDERS: Emergency Provider Emergency Medicine; PCP Internal Medicine Adolescent Medicine
DX: R10.13 Epigastric pain (principal)
CPT/HCPCS: 74177; 80053; 81001; 81025; 82150; 83690; 84145; 85025; 85651; 86140; 87086; 96365; 96375; 99283; J2405; Q9967

== ENCOUNTER → 2021-04-22 20:06 | Outpatient (CLI) | payer BC, SELFPAY ==
[2021-04-22 20:46] LABS: Basophils # 0.1 K/mm3 (0-0.2); Basophils % 1.2 % (0.1-2.0); Eosinophils # 0.2 K/mm3 (0.0-0.4); Eosinophils % 3.2 % (0.1-12.0); Hematocrit 43.3 % (37.0-47.0); Hemoglobin 14.9 g/dL (12.2-16.2); Lymphocytes # 1.9 K/mm3 (0.7-4.5); Lymphocytes % 27.6 % (10-50); Mean Corpuscular HGB Conc 34.4 g/dL (31.8-35.4); Mean Corpuscular Hemoglobin 30.9 pg (27.0-31.2); Mean Corpuscular Volume 89.7 fl (81-99); Mean Platelet Volume 7.8 fl (7.4-10.4); Monocytes # 0.4 K/mm3 (0.1-1.0); Monocytes % 6.1 % (1.7-9.3); Neutrophils # 4.2 K/mm3 (1.8-7.8); Neutrophils % 61.8 % (37.0-80.0); Platelet Count 259 K/mm3 (142-424); Red Blood Count 4.82 M/mm3 (4.20-5.40); Red Cell Distribution Width 12.9 % (11.5-17.5); White Blood Count 6.8 K/mm3 (4.8-10.8)
[2021-04-22 20:56] LABS: Alanine Aminotransferase 21 U/L (12-78); Albumin Level 4.8 g/dl (3.5-5.0); Albumin/Globulin Ratio 1.5 (1.1-1.8); Alkaline Phosphatase 78 U/L (38-126); Anion Gap 13.9 mEq/L (5-15); Aspartate Amino Transferase 32 U/L (14-36); Bilirubin,Total 0.9 mg/dl (0.2-1.3); Blood Urea Nitrogen 17 mg/dl (7-17); Calcium 9.3 mg/dl (8.4-10.2); Carbon Dioxide 30 mmol/L (22.0-30.0); Chloride 100 mmol/L (98-107); Estimated Glomerular Filt Rate 123 ml/min (>60); GFR (African American) 149 ML/MIN (>60); Globulin 3.2 g/dL (1.3-3.2); Glucose 100 mg/dl (74-100); Potassium 3.9 mmoL/L (3.5-5.1); Sodium 140 mmol/L (136-145)
[2021-04-23 08:52] LABS: HCG Qualitative, Serum Negative (Negative)
== END ==
PROVIDERS: PCP Internal Medicine Adolescent Medicine; Visit Provider Obstetrics & Gynecology
DX: Z01.812 Encounter for preprocedural laboratory examination (principal); Z11.52 Encounter for screening for COVID-19; R10.2 Pelvic and perineal pain; N94.6 Dysmenorrhea, unspecified; N83.209 Unspecified ovarian cyst, unspecified side
CPT/HCPCS: 36415; 80053; 84702; 84703; 85025; C9803; U0003; U0005

== ENCOUNTER 2021-04-24 08:10 | Day surgery (SDC) | payer BC, SELFPAY ==
[2021-04-22 11:56] VITALS: BMI 22.8
[2021-04-24] VITALS (11 sets, daily range): BP systolic 108–138; BP diastolic 62–90; PULSE 68–95; RESP 12–18; TEMP 36.2–36.8; O2SAT 96–100
--- NOTE | 2021-04-24 08:57 | HMH.ANESCL ---
[facility] Anesthesia Checklist - Patient Identification Patient Identification: Arm Band - Structural Data Admitted From: Home Planned Operative Procedure/s: Dx. lap Consent for Planned Operative Procedure(s) Verified: Yes - NPO Status Verified Time NPO: 00:00 - Additional verifications Anesthesia Reactions: No Hx Blood Transfusions: No Blood Transfusion Reaction: No - Airway Assessment C-Spine Mobility Assessed: Yes TMJ Mobility Assessed: Yes Dentition: Good Dentition (Significant overbite) - Neurological Assessment Level of Consciousness: Awake Hx Seizures: No Numbness or tingling in extremities: No - Anesthesia Plan Anesthesia Risk discussed: Yes Anesthesia Plan: Verified ASA Class: II Anesthesia Type: General [facility] History I have reviewed the patient's past medical history: Yes Medical History: Denies:: Cancer, Diabetes Mellitus Type 1, Diabetes Mellitus Type 2, Internal Pacemaker, MRSA, Seizures *Have you ever received a pneumonia vaccine?: No *Have you received a flu vaccine this season?: No Other Medical History: Reports: Hypothyroidism. Denies: Blood Transfusion Reaction Anesthesia experience/problems:: None Other Surgeries: Yes: Other. No: Pacemaker Amputation: No Fractures: No - *Social History Last grade of school completed: High school graduate Smoking Status: Never smoker Alcohol Intake: never Substance Use Type: denies use *Occupational Status:: employed Housing: house Household Members: family *Travel in the last 8 weeks: None Family Hx:: Hypertension, Diabetes, Thyroid Disorder
--- NOTE | 2021-04-24 11:25 | HMH.ANESI ---
[facility] Anesthesia Record Part I Intake, IV Amount: 500 Estimated blood loss (mL): 30 Urine output (mL): 300 Blood Pressure: 122/77 SaO2: 96 Pulse Rate: 75 Respiratory Rate: 18 Temperature: 97.2 F Patient is:: Drowsy Stable to PACU at:: 11:23
--- NOTE | 2021-04-24 12:00 | SUR.PHASEI ---
1151 detailed report given to Rogelio Alfonso RN [id number] pt out of pacu and transported via stretcher to post op. pt is in stable condition. pt left with Belinda Cruz RN at bedside.
--- NOTE | 2021-04-24 15:28 | P.PN_ITS ---
[facility] Anesthesia Record Part II Discharge Time: 11:53 Destination: Surgical Day Care (OP Surgery) PACU nurse assessment reviewed?: Yes Patient Condition:: Good Anesthesia Complications:: None Swallowing reflex intact?: Yes Cyanosis?: No Blood Pressure: 113/78 Pulse Rate: 79 Temperature: 97.9 F Mental Status: Alert & Oriented Pain level:: 0 Nausea and/or vomitting:: None Intake, IV Amount: 0
--- NOTE | 2021-04-24 16:17 | P.OP_ITS ---
Date of procedure: 04/24/21 Pre-op Diagnosis:: 1. Pelvic pain 2. Severe dysmenorrhea Post-op Diagnosis:: same Procedure performed:: Diagnostic laparoscopy Chromotubation of fallopian tubes Surgeon:: Bina Brar MD SALES DEVELOPMENT REPRESENTATIVE:: Other Anesthesia: GETA Estimated blood loss (mL): 30 Operative findings:: grossly normal uterus, ovaries and fallopian tubes bilateral patent fallopian tubes no adhesions or visual evidence of endometriosis Operative note:: The patient was taken to the operating room and general anesthesia was ad ministered. She was prepped/draped in lithotomy position. A uterine manipulator was placed without difficulty. Gloves were changed and attention was turned to the abdomen. A 5mm skin incision was made in the umbilical fold and the verees needle was inserted through the peritoneum and into the abdominal cavity in standard fashion. The abdomen was insufflated with CO2 gas. A 5mm non-bladed trocar was inserted directly into the abdominal cavity and appropriate placement was confirmed with the laparoscope. No intra-abdominal injuries occurred during entry into the abdominal cavity, as confirmed visually with the laparoscope. The patient was placed in trendelenburg and a 5mm skin incision was made 2cm above the pubic symphysis. A 5mm non-bladed trocar was inserted under direct visualization, without complication. The uterus was elevated out of the pelvis in order to better visualize the anatomy. A survey of the pelvis and abdomen was normal. There were no adhesions or visual ev idence of endometriosis. The uterus was elevated and a dilute solution of methylene blue was injected through the uterine manipulator. Dye was able to pass through both fallopian tubes with ease and no evidence of obstruction. The pelvis was irrigated and all fluid/dye evacuated. The abdomen was then evacuated of gas and all trocars removed. The skin incisions were closed with 4-0 monocryl and dermabond. The uterine manipulator was removed. All sponge/lap/needle/instrument counts correct. Total EBL: 30cc. The patient was taken out of lithotomy position, extubated and taken to the PACU in stable condition. Condition: stable Disposition: PACU Specimens:: none Complications:: none
== END 2021-04-24 12:28 | disposition home or self-care (01) ==
PROVIDERS: PCP Internal Medicine Adolescent Medicine; Visit Provider Obstetrics & Gynecology
PROC: (CPT 49320; principal; 2021-04-24 09:45)
DX: N94.4 Primary dysmenorrhea (principal); E03.9 Hypothyroidism, unspecified; Z88.2 Allergy status to sulfonamides; Z79.899 Other long term (current) drug therapy
CPT/HCPCS: 49320; 58350; 96374; J2405; J2710

== ENCOUNTER 2021-06-26 18:39 | Emergency (ER) | payer BC, SELFPAY ==
[2021-06-26 18:40] VITALS: BP 136/80; PULSE 79; RESP 16; TEMP 36.8; O2SAT 98; BMI 22.8
--- NOTE | 2021-06-26 19:02 | US_ITS ---
PROCEDURE INFORMATION: Exam: US Abdomen, Limited; Right Upper Quadrant Exam date and time: 06/26/2021 7:02 PM Age: 26 years old Clinical indication: Abdominal pain; Epigastric; Additional info: Epigastric pain TECHNIQUE: Imaging protocol: US abdomen. Real time ultrasound with image documentation. Limited exam focused on the right upper quadrant. COMPARISON: US [facility] ABD 03/12/2016 2:02 PM FINDINGS: Liver: Normal. No masses. Gallbladder: Normal. No gallstones. There is no gallbladder wall thickening. Biliary ducts: Normal. No stones. No dilation. 3.4 mm. Pancreas: Visualized pancreas is unremarkable. Right kidney: Normal. No mass. No hydronephrosis. 8.3 x 4.4 x 6.5 cm. IMPRESSION: No acute findings.
--- NOTE | 2021-06-26 19:07 | PC.NURSE ---
ER notes requested from [place] visit on 06/25/21
--- NOTE | 2021-06-26 19:08 | HMH.EDGENADL ---
ED Disposition Clinical Impression: Epigastric pain Disposition: Home, Self-Care Condition on Discharge: Good Instructions: DI for Acute Abdominal Pain Additional Instructions: Continue taking Nexium daily. Follow-up with your primary care provider next week for further care and to discuss possible gastroenterology referral. Additional instructions for ABDOMINAL PAIN: See your physician as soon as possible for further evaluation. Return immediately if worsening abdominal pain, vomiting, shortness of breath, fever, vomiting of blood or abdominal distention. Referrals: Chago Ireland MD [Primary Care Provider] - - Critical Care Critical Care Time: No Attestation: On 06/26/21, the high probability of a clinically significant, sudden or life threatening deterioration of the following system(s) required my full and direct attention, intervention and personal management. The time I documented below is in addition to time spent performing reported procedures but includes the following listed in this critical care notation. Medical Decision Making - Medical Records Medical records reviewed: Yes: I reviewed the patient's medical records. MR Comment: Reviewed emergency department note with associated CT scan report 03/25/[address] scan showed complex right ovarian cyst. She had follow-up with Dr. Brar for gynecologic evaluation and had subsequent laparoscopy for the possibility of endometriosis. Office note and operative note reviewed, laparoscopy negative. Reviewed emergency department note from [facility] from visit yesterday. Corroborates the patient's story. The emergency physician's note indicates that the patient stated she had had a right upper quadrant ultrasound done at this facility, but the patient denies this and states that she told them she had had a CT scan, which is consistent with her records here. She has not had a gallbladder ultrasound before. She was prescribed Protonix. - Dariel Inquiry Pt receiving controlled substance: No Vital Signs: 06/26/21 18:40 Temperature 98.3 F Temperature Source Oral Pulse Rate [Radial] 79 Respiratory Rate 16 Blood Pressure [Right Arm] 136/80 Blood Pressure Mean [Right Arm] 98 Blood Pressure Position [Right Arm] Sitting 02 Sat by Pulse Oximetry 98 Oxygen Delivery Method Room Air - Lab Data Lab Results 06/26/21 18:00: Urine Color Yellow, Urine Appearance Sl cloudy, Urine pH 7.5, Ur Specific [place] 1.025, Urine Protein Negative, Urine Glucose (UA) Negative, Urine Ketones 1+, Urine Blood 3+, Urine Nitrate Negative, Urine Bilirubin Negative, Urine Urobilinogen 0.2, Ur Leukocyte Esterase Negative, Urine RBC 20-50, Urine WBC 5-10, Ur Squamous Epith Cells 3-5, Urine Bacteria 1+ 06/26/21 18:00: Urine HCG, Qual Negative Orders (Tests/Meds): ED MEDICATIONS Generic Name Dose Route Start Last Admin Trade Name Freq PRN Reason Stop Dose Admin Sodium Chloride 8 ml 06/26/21 20:23 Sodium Chloride 0.9% 10ml Vial IV 07/26/21 20:22 NEEDED PRN dilute pepcid Discontinued Medications Generic Name Dose Route Start Last Admin Trade Name Freq PRN Reason Stop Dose Admin Belladonna Alkaloids 60 ml 06/26/21 19:35 06/26/21 19:36 Gi Cocktail 60ml Udc PO 06/26/21 19:36 60 ml ONCE ONE Administration Famotidine 20 mg 06/26/21 20:23 Famotidine 20mg/2ml Vial IV 06/26/21 20:24 ONCE ONE ORDERS Category Date Time Status Complete Blood Count Auto Diff Stat Lab 06/26/21 19:01 Ordered Comprehensive Metabolic Panel Stat Lab 06/26/21 19:01 Ordered Lipase Stat Lab 06/26/21 19:01 Ordered - US Data US Images: Gallbladder Findings Narrative: PROCEDURE INFORMATION: Exam: US Abdomen, Limited; Right Upper Quadrant Exam date and time: 06/26/2021 7:02 PM Age: 26 years old Clinical indication: Abdominal pain; Epigastric; Additional info: Epigastric pain TECHNIQUE: Imaging sheryl
[2021-06-26 19:19] LABS: Microscopic, Urine URINE MICROSCOPIC (MICROSCOPIC)
[2021-06-26 19:23] LABS: Appearance,Urine SL CLOUDY (Clear); Bilirubin,Urine Negative (Negative); Blood, Urine 3+ (Negative); Color,Urine YELLOW (Yellow); Glucose,Urine (UA) Negative (Negative); Ketones,Urine 1+ (Negative); Leukocyte Esterase,Urine Negative (Negative); Nitrate,Urine Negative (Negative); PH,Urine 7.5 (5.0-8.5); Protein,Urine Negative (Negative); Specific Gravity, Urine 1.025 (1.005-1.030); Urobilinogen,Urine 0.2 EU/dl (0.2)
[2021-06-26 19:26] LABS: Urine Pregnancy, HCG Qual. Negative (Negative)
--- NOTE | 2021-06-26 19:27 | PC.NURSE ---
pt back from u/s
[2021-06-26 19:42] LABS: Bacteria,Urine 1+ /lpf; RBC,Urine 20-50 #/hpf (0-3)
[2021-06-26 21:02] LABS: Basophils # 0.2 K/mm3 (0-0.2); Basophils % 1.6 % (0.1-2.0); Eosinophils # 0.1 K/mm3 (0.0-0.4); Eosinophils % 1.1 % (0.1-12.0); Hematocrit 43.8 % (37.0-47.0); Lymphocytes # 1.4 K/mm3 (0.7-4.5); Lymphocytes % 12.1 % (10-50); Mean Corpuscular HGB Conc 34.1 g/dL (31.8-35.4); Mean Corpuscular Hemoglobin 30.6 pg (27.0-31.2); Mean Corpuscular Volume 89.7 fl (81-99); Mean Platelet Volume 7.6 fl (7.4-10.4); Monocytes # 0.5 K/mm3 (0.1-1.0); Monocytes % 4.1 % (1.7-9.3); Neutrophils # 9.5 K/mm3 (1.8-7.8); Neutrophils % 81.2 % (37.0-80.0); Platelet Count 287 K/mm3 (142-424); Red Blood Count 4.89 M/mm3 (4.20-5.40); Red Cell Distribution Width 13.1 % (11.5-17.5); White Blood Count 11.7 K/mm3 (4.8-10.8)
[2021-06-26 21:03] LABS: Chloride 106 mmol/L (98-107)
[2021-06-26 21:04] LABS: Potassium 3.7 mmoL/L (3.5-5.1); Sodium 142 mmol/L (136-145)
[2021-06-26 21:06] LABS: Alanine Aminotransferase 23 U/L (12-78); Alkaline Phosphatase 81 U/L (38-126); Anion Gap 13.7 mEq/L (5-15); Aspartate Amino Transferase 33 U/L (14-36); Bilirubin,Total 0.8 mg/dl (0.2-1.3); Blood Urea Nitrogen 15 mg/dl (7-17); Carbon Dioxide 26 mmol/L (22.0-30.0); Creatinine Clearance Estimated 110 mL/min (50-200); Estimated Glomerular Filt Rate 102 ml/min (>60); GFR (African American) 123 ML/MIN (>60); Lipase 81 U/L (23-300)
[2021-06-26 21:07] LABS: Albumin Level 4.6 g/dl (3.5-5.0); Albumin/Globulin Ratio 1.4 (1.1-1.8); Calcium 9.4 mg/dl (8.4-10.2); Globulin 3.2 g/dL (1.3-3.2); Glucose 121 mg/dl (74-100); Total Protein,Serum 7.8 g/dl (6.3-8.2)
[2021-06-26 22:38] VITALS: BP 136/80; PULSE 79; RESP 18; TEMP 37
== END 2021-06-26 22:42 | disposition home or self-care (01) ==
PROVIDERS: Emergency Provider Emergency Medicine; PCP Internal Medicine Adolescent Medicine
DX: N83.201 Unspecified ovarian cyst, right side (principal); R10.13 Epigastric pain; Z88.2 Allergy status to sulfonamides
CPT/HCPCS: 76705; 80053; 81001; 81025; 83690; 85025; 96374; 99284

== ENCOUNTER 2023-11-01 13:12 | Outpatient (CLI) | payer OTHER, SELFPAY ==
--- NOTE | 2023-11-01 13:22 | US_ITS ---
PROCEDURE: US OB >= 14 WEEKS FETUS CLINICAL INDICATION: Dating COMPARISON: No exams were available for comparison FINDINGS: Transabdominal sonographic images of the pelvis were obtained. From her last menstrual period she is 15 weeks 3 days. Single viable intrauterine gestation. Breech position. Placenta: Anteriorplacenta grade 1. There is an average amount of fluid. The cervix appears satisfactory. Closed and measuring 3.56 cm in length. survey performed and was unremarkable on the submitted images as in PACS. No discrete anomalies identified on survey imaging by technologist. Active fetus. Three-vessel cord with satisfactory umbilical cord insertion. Heart: Survey incomplete Survey of brain & ventricles Unremarkable. Appears normal but exam was incomplete. Face and neck survey unremarkable. Profile seen but the rest of the exam was incomplete. Diaphragm and chest views unremarkable. Abdomen: Survey incomplete stomach and bladder noted and satisfactory. Spine: Survey of the spine was incomplete. Both arms and legs noted. Amniotic Fluid: Adequate. Measurements: Average ultrasound age 15weeks 4days. Estimated due date by ultrasound age 0304/20/2024. Estimated weight 130g BPD = 15weeks 0 days HC = 15weeks 3days AC = 15weeks 5days FL = 15weeks 5days Growth Percentile= 52 Heart Rate = 155bpm HC/AC is 1.18 FL/BPD is 0.69 FL/AC is 0.2 IMPRESSION: 1. Viable fetus in the breech presentation with an anterior placenta grade 1. 2. The fluid is within normal limits. 3. Limited anatomical scan appears normal but was incomplete due to early gestational age. Suggest repeat scan at 20 weeks. 4. biometry is consistent with the dates. EH will remain 04/21/2024. Dictated by: Curt Tovar MD 11/01/2023 17:14 Curt Tovar MD in [place] 11/01/2023 17:14
[2023-11-01 13:56] LABS: Basophils % 0.4 % (0.1-2.0); Eosinophils # 0.1 K/mm3 (0.0-0.4); Eosinophils % 0.9 % (0.1-12.0); Hematocrit 39.1 % (37.0-47.0); Hemoglobin 13.3 g/dL (12.2-16.2); Lymphocytes # 1.9 K/mm3 (0.7-4.5); Mean Corpuscular HGB Conc 34.1 g/dL (31.8-35.4); Mean Corpuscular Hemoglobin 31.2 pg (27.0-31.2); Mean Corpuscular Volume 91.6 fl (81-99); Monocytes # 0.4 K/mm3 (0.1-1.0); Monocytes % 3.9 % (1.7-9.3); Neutrophils # 7.8 K/mm3 (1.8-7.8); Neutrophils % 75.9 % (37.0-80.0); Platelet Count 242 K/mm3 (142-424); Red Blood Count 4.27 M/mm3 (4.20-5.40); Red Cell Distribution Width 13.6 % (11.5-17.5); White Blood Count 10.2 K/mm3 (4.8-10.8)
[2023-11-01 14:50] LABS: Thyroid Stimulating Hormone 0.87 uIU/mL (0.465-4.68)
[2023-11-01 15:40] LABS: HIV (1&2) Antibody Rapid NONREACTIVE (NONREACTIVE)
[2023-11-03 05:10] LABS: HCV Ab Non Reactive (Non Reactive); Hepatitis B Surface Antigen Negative (Negative); Rubella Antibodies, IgG 1.17 index (Immune >0.99)
[2023-11-03 12:35] LABS: Rapid Plasma Reagin Ab Titer Non Reactive titer (NonRea<1:1)
== END 2023-11-01 23:59 | disposition home or self-care (01) ==
LOC: RAD 13:16
PROVIDERS: PCP Nurse Practitioner Family; Visit Provider Obstetrics & Gynecology
DX: Z36.87 Encounter for antenatal screening for uncertain dates (principal); Z3A.15 15 weeks gestation of pregnancy
CPT/HCPCS: 36415; 76805; 84443; 85025; 86593; 86762; 86803; 86850; 87086; 87340; 87389

== ENCOUNTER 2023-12-07 12:52 | Outpatient (CLI) | payer OTHER, SELFPAY ==
--- NOTE | 2023-12-07 12:53 | US_ITS ---
PROCEDURE: US OB >= 14 WEEKS FETUS CLINICAL INDICATION: anatomy scan COMPARISON: US US OB >= 14 WEEKS FETUS from 11/01/2023 FINDINGS: Transabdominal sonographic images of the pelvis were obtained. From her established due date she is 20 weeks 5 days. Single viable intrauterine gestation. Breech position. Placenta: Anteriorplacenta grade 1. There is an average amount of fluid. The cervix appears satisfactory. Closed and measuring 2.94 cm in length. Complete survey performed and was unremarkable on the submitted images as in PACS. No discrete anomalies identified on survey imaging by technologist. Active fetus. Three-vessel cord with satisfactory umbilical cord insertion. 4- chamber heart noted. Situs, aortic arch, LVOT, RVOT, three-vessel view appear normal. Survey of brain & ventricles Unremarkable. Cerebellum, thalamus, choroid plexus, cisterna magna appear normal. Face and neck survey unremarkable. Profile, nasion, lips and nose appeared normal. Diaphragm and chest views unremarkable. Abdomen: Both kidneys noted and unremarkable. Stomach and bladder noted and satisfactory. Spine: Survey of the spine satisfactory with no anomalies identified nor imaged. Cervical, thoracic, lower spine appear normal. Both arms and legs noted. Amniotic Fluid: Adequate. MVP 3.37 cm. Measurements: Average ultrasound age 20weeks 5days. Estimated due date by ultrasound age 0304/20/2024. Estimated weight 355g BPD = 20weeks 6days HC = 20weeks 5days AC = 20weeks 6days FL = 20weeks 1day Growth Percentile= 31 Heart Rate = 149bpm Cerebellum = 19weeks 4days Humerus = 20weeks 5days HC/AC is 1.17 FL/BPD is 0.66 FL/AC is 0.21 IMPRESSION: 1. Viable fetus in the breech presentation with an anterior placenta grade 1. 2. The fluid is within normal limits MVP 3.37 cm. 3. Anatomical scan appears normal. 4. biometry is consistent with the dates. Dictated by: Curt Tovar MD 12/08/2023 07:43 Curt Tovar MD in [place] 12/08/2023 07:43
== END 2023-12-07 23:59 | disposition home or self-care (01) ==
LOC: RAD 12:53
PROVIDERS: PCP Internal Medicine Adolescent Medicine; Visit Provider Obstetrics & Gynecology
DX: Z34.90 Encounter for supervision of normal pregnancy, unspecified, unspecified trimester (principal)
CPT/HCPCS: 76805

== ENCOUNTER 2024-01-30 12:40 | Outpatient (CLI) | payer OTHER, SELFPAY ==
[2024-01-30 14:28] LABS: Hematocrit 34.7 % (37.0-47.0); Hemoglobin 12.2 g/dL (12.2-16.2); Mean Corpuscular Hemoglobin 31.3 pg (27.0-31.2); White Blood Count 11.1 K/mm3 (4.8-10.8)
[2024-01-30 14:29] LABS: Basophils % 0.3 % (0.1-2.0); Eosinophils # 0.2 K/mm3 (0.0-0.4); Eosinophils % 1.4 % (0.1-12.0); Lymphocytes # 1.8 K/mm3 (0.7-4.5); Mean Corpuscular HGB Conc 35.2 g/dL (31.8-35.4); Mean Platelet Volume 9.5 fl (7.4-10.4); Monocytes # 0.7 K/mm3 (0.1-1.0); Monocytes % 6.4 % (1.7-9.3); Neutrophils # 8.4 K/mm3 (1.8-7.8); Neutrophils % 75.4 % (37.0-80.0); Platelet Count 211 K/mm3 (142-424); Red Cell Distribution Width 12.9 % (11.5-17.5)
[2024-01-30 14:37] LABS: Glucose 1 Hour 108 mg/dL (74-100)
[2024-02-01 16:53] LABS: RPR W/RFX Titers Nonreactive (Nonreactive)
== END 2024-01-30 23:59 | disposition home or self-care (01) ==
LOC: LAB 12:41
PROVIDERS: PCP Internal Medicine Adolescent Medicine; Visit Provider Obstetrics & Gynecology
DX: O09.293 Supervision of pregnancy with other poor reproductive or obstetric history, third trimester (principal); Z3A.28 28 weeks gestation of pregnancy
CPT/HCPCS: 36415; 82947; 85025; 86592

== ENCOUNTER 2024-02-21 14:52 | Outpatient (CLI) | payer OTHER, SELFPAY ==
[2024-02-21 16:26] LABS: Free T4 (Free Thyroxine) 1.06 ng/dl (0.78-2.19)
[2024-02-21 16:27] LABS: Triiodothryronine (T3) Uptake 18 % (23.5-40.5)
[2024-02-21 16:41] LABS: Thyroid Stimulating Hormone 0.99 uIU/mL (0.465-4.68)
[2024-02-22 12:13] LABS: Triiodothyronine (T3) Free 2.6 pg/mL (2.0-4.4)
== END 2024-02-21 23:59 | disposition home or self-care (01) ==
LOC: LAB 14:53
PROVIDERS: Obstetrics & Gynecology; PCP Internal Medicine Adolescent Medicine; Visit Provider Internal Medicine Endocrinology, Diabetes & Metabolism
DX: E06.3 Autoimmune thyroiditis (principal); E07.9 Disorder of thyroid, unspecified; O99.282 Endocrine, nutritional and metabolic diseases complicating pregnancy, second trimester
CPT/HCPCS: 36415; 84436; 84439; 84443; 84479; 84481

== ENCOUNTER 2024-03-13 12:53 | Outpatient (CLI) | payer OTHER, SELFPAY ==
--- NOTE | 2024-03-13 12:54 | US_ITS ---
PROCEDURE: US OB BIOPHYSICAL PROFILE CLINICAL INDICATION: Breech-US @34wk f/u on Breech presentation-Growth COMPARISON: US US OB >= 14 WEEKS FETUS from 11/01/2023 US US OB >= 14 WEEKS FETUS from 12/07/2023 FINDINGS: Transabdominal sonographic images of the uterus were obtained. From her established due date she is 34weeks 4days. The following parameters are obtained: Viable Fetus in the cephalic presentation with an anterior placenta grade 2. Average ultrasound age is 35weeks 0 days Estimated weight 2,417g, 5 lb 5 oz Cervix measures 3.58 cm. Measurements: heart Rate = 133bpm BPD = 35weeks 5days, 81 percentile HC = 36weeks 1day, 55 percentile AC = 34weeks 1day, 40 percentile FL = 34weeks 0 days, 25 percentile HC/AC is 1.07 FL/BPD is 0.75 FL/AC is 0.22 40 percentile Amniotic fluid index: 14.84cm, MVP 7.68 cm Qualitative AFV:2 Breathing movements: 2 Gross Body Movements: 2 Tone: 2 Biophysical profile score: 8 No obvious anomalies evident.Kidneys, profile, bladder, stomach, four-chamber heart, three-vessel cord appear normal. IMPRESSION: 1. Viable fetus in the cephalic presentation with an anterior placenta grade 2. 2. The fluid is within normal limits with an amniotic fluid index 14.84 cm, MVP 7.68 cm. 3. Biophysical profile is 8/8 with good breathing movement and movement seen. 4. Limited anatomical scan appears normal. Dictated by: Curt Tovar MD 03/13/2024 16:18 Curt Tovar MD in [place] 03/13/2024 16:18
== END 2024-03-13 23:59 | disposition home or self-care (01) ==
LOC: RAD 12:53
PROVIDERS: PCP Obstetrics & Gynecology; Visit Provider Obstetrics & Gynecology
DX: O32.1XX0 Maternal care for breech presentation, not applicable or unspecified (principal); O09.293 Supervision of pregnancy with other poor reproductive or obstetric history, third trimester; Z3A.34 34 weeks gestation of pregnancy
CPT/HCPCS: 76816; 76819

== ENCOUNTER 2024-03-24 12:47 | Inpatient (IN) | payer OTHER, SELFPAY ==
[2024-03-24 12:48] VITALS: BMI 25.7
[2024-03-24 13:02] VITALS: BP 123/73; PULSE 91; RESP 17; TEMP 36.6; O2SAT 97; BMI 25.7
[2024-03-24 13:27] LABS: Microscopic, Urine URINE MICROSCOPIC (MICROSCOPIC)
[2024-03-24 13:33] LABS: Appearance,Urine CLEAR (Clear); Bilirubin,Urine Negative (Negative); Blood, Urine Negative (Negative); Color,Urine YELLOW (Yellow); Glucose,Urine (UA) Negative (Negative); Ketones,Urine Negative (Negative); Leukocyte Esterase,Urine Negative (Negative); Nitrate,Urine Negative (Negative); Protein,Urine Negative (Negative)
[2024-03-24 13:42] LABS: Benzodiazepines Screen,Urine Negative ng/ml (<200)
[2024-03-24 13:43] LABS: Amphetamine/Metha Screen,Urine Negative ng/ml (<1000)
[2024-03-24 13:44] LABS: Barbiturates Screen,Urine Negative ng/ml (<200); Cannabinoid Screen,Urine Negative ng/ml (<50)
[2024-03-24 13:45] LABS: Cocaine Screen,Urine Negative ng/ml (<300)
[2024-03-24 13:46] LABS: Methadone Screen,Urine Negative ng/ml (<300); Opiate Screen,Urine Negative ng/ml (<300)
[2024-03-24 13:47] LABS: Phencyclidine Screen,Urine Negative ng/ml (<25)
[2024-03-24 14:02] LABS: RBC,Urine Occasional #/hpf (0-3); WBC,Urine Occasional #/hpf (0-3)
[2024-03-24 15:05] LABS: Basophils % 0.3 % (0.1-2.0); Eosinophils # 0.1 K/mm3 (0.0-0.4); Eosinophils % 0.6 % (0.1-12.0); Hemoglobin 12.6 g/dL (12.2-16.2); Lymphocytes # 1.8 K/mm3 (0.7-4.5); Mean Corpuscular HGB Conc 34.1 g/dL (31.8-35.4); Mean Corpuscular Hemoglobin 29.4 pg (27.0-31.2); Mean Corpuscular Volume 86.2 fl (81-99); Mean Platelet Volume 10.1 fl (7.4-10.4); Monocytes # 0.5 K/mm3 (0.1-1.0); Monocytes % 4.6 % (1.7-9.3); Neutrophils # 8.9 K/mm3 (1.8-7.8); Neutrophils % 78.1 % (37.0-80.0); Platelet Count 220 K/mm3 (142-424); Red Blood Count 4.29 M/mm3 (4.20-5.40); Red Cell Distribution Width 12.4 % (11.5-17.5); White Blood Count 11.4 K/mm3 (4.8-10.8)
[2024-03-24] MEDS: LACTATED RINGERS 1000ML 1,000 ML 500 ML IV (16:44)
[2024-03-24] MEDS: DEXTROSE 5%-LACTATED RINGERS 1,000 ML 125 ML IV (16:45)
--- NOTE | 2024-03-24 16:45 | EXP.OB.APHP ---
OB - H&P: HPI Antepartum History of Present Illness Chief complaint: Painful contractions History of present illness: Ms Keyona Vazquez is a 28 yo at 36w0d who presented to [facility] L&D with complaint of painful contractions that started around 0830 this morning. She reports an elevated BP at home this morning. She has had good care. complicated by hypothyroidism, history of preeclampsia with prior , and history of delivery at 34 weeks. TSH 02/21/24 was 0.99. BP in L&D was normotensive. No headaches, vision changes or RUQ pain. Cervical exam on admission was 4/70/-2 on admission. Nitrazine paper used to test for possible rupture of membranes. Nitrazine negative. Repeat exam 2 hours later was 7/75/-2. GBS unknown. History of Present Criteria for establishing EDC:: LMP confirmed by 2nd trimester US care: good care Ultrasounds: normal mid trimester US Obstetrical complications: labor Medical complications: none Labs Blood type: A (+) positive Rubella: immune RPR/VDRL: nonreactive GBS status: unknown HBsAG: negative [facility] Disclaimer: The information contained in this section may have been updated after the patient was seen, as this information can be updated by other users. Medical History (Updated 03/24/24 @ 17:07 by Gracie Oconnell DO) Hypothyroidism affecting , antepartum labor Hypothyroidism History of anxiety History of pre-eclampsia Surgical History Hx of wisdom tooth extraction Family History Other No significant family history Social History Smoking Status: Never smoker alcohol intake: never substance use type: denies use current occupational status: employed Travel in the last 8 weeks: None household members: family housing: house caffeine: Yes Have you lived/traveled outside US in past 30 days?: No Contact w/someone who lives/traveled outside US past 30 days?: No Exposure to someone with infectious disease in past 14 days?: No Do you have a fever (greater than 100.4 F or 38 C)?: No Have you tested positive for COVID-19: No Exposed to someone with COVID-19 in past 14 days?: No Do you have a sore throat?: No Do you have a cough?: No Do you have any weakness?: No Do you have any diarrhea?: No Are you experiencing any unusual bleeding?: No Do you have any muscle aches/pain?: No Do you have any abdominal pain?: No Are you experiencing loss of taste or smell?: No Other Medical History Have you received the Flu Vaccine for this season: No Have you received the Pneumonia Vaccine: No Review of Systems Review of Systems Review of systems:: pertinent systems reviewed and negative unless documented below *Genitourinary Comments: + contractions Meds Home Medications and Allergies Home Medications ?Medication ?Instructions ?Recorded ?Confirmed ?Type aspirin 81 mg tablet,delayed 81 mg PO DAILY #30 tabs 11/01/23 03/06/24 Rx release (Adult Low Dose Aspirin) levothyroxine 88 mcg capsule 88 mcg PO DAILY 01/24/24 03/06/24 History New Prescriptions to Start Prescriptions: Allergies Allergy/AdvReac Type Severity Reaction Status Date / Time Sulfa (Sulfonamide Allergy Intermediate I-HIVES Verified 03/06/24 14:12 Antibiotics) (SULFA (SULFONAMIDE ANTIBIOTICS)) OB - H&P: Exam Physical Exam Vital signs: Temp Pulse Resp BP Pulse Ox O2 Del Method 97.9 F 91 H 17 123/73 97 Room Air 03/24/24 13:02 03/24/24 13:02 03/24/24 13:02 03/24/24 13:02 03/24/24 13:02 03/24/24 13:02 Constitutional no acute distress and cooperative Routine HEENT Exam Head: Present normocephalic and atraumatic Eye: Absent conjunctivae pink ENT: Present mucous membranes moist Routine Neck Exam Present full ROM Routine Respiratory Exam Present CTA bilaterally and normal respiratory effort Routine Cardiovascular Exam Present RRR Routine Abdominal Exam Present soft (Gravid); Absent tenderness Routine Rectal Exam Patient deferred: visual exam Routine Exam External: Present normal urethra appearance; Absent erythema, swelling, tenderness, lesions or lacerations Routine Extremities Exam Present full ROM; Absent edema or calf tenderness Routine Neurological Exam Present alert, moving all extremities and normal speech Routine Psychiatric Exam Present normal affect and cooperative Detailed Labor and Delivery Exam Dilation (cm): 7 Effacement (%): 75 Cervix position: posterior station: -2 Consistency: soft Membranes: artificially ruptured Amniotic fluid: clear Baseline heart rate: 130 monitor accelerations: Present monitor decelerations: None snf variability: Moderate (11-25) Contraction frequency (min): 4 Tachysystole: No OB - Results Labs Labs: Short CBC 03/24/24 Range/Units 14:45 WBC 11.4 H (4.8-10.8) K/mm3 Hgb 12.6 (12.2-16.2) g/dL Hct 37.0 (37.0-47.0) % Plt Count 220 (142-424) K/mm3 Urine 03/24/24 Range/Units 12:53 Urine Color Yellow (Yellow) Urine Appearance Clear (Clear) Urine pH 8.0 (5.0-8.5) Ur Specific [place] 1.020 (1.005-1.030) Urine Protein Negative (Negative) Urine Glucose (UA) Negative (Negative) OB - A/P Antepartum (1) labor: Status: Acute (2) Hypothyroidism affecting , antepartum: Status: Acute (3) Hx of preeclampsia, prior , currently : Status: Acute (4) 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 Start ampicillin for prophylaxis Amniotomy performed without difficulty, clear fluid Close monitoring Anticipate
[2024-03-24] MEDS: CEFAZOLIN SODIUM 2 GM in 0.9 % SODIUM CHLORIDE 100 ML IV (16:46)
--- NOTE | 2024-03-24 17:43 | P.PNANES_ITS ---
[facility] Disclaimer: The information contained in this section may have been updated after the patient was seen, as this information can be updated by other users. Medical History (Updated 03/24/24 @ 17:07 by Gracie Oconnell DO) Hypothyroidism affecting , antepartum labor Hypothyroidism History of anxiety History of pre-eclampsia Surgical History Hx of wisdom tooth extraction Family History Other No significant family history Social History Smoking Status: Never smoker alcohol intake: never substance use type: denies use current occupational status: employed Travel in the last 8 weeks: None household members: family housing: house caffeine: Yes Have you lived/traveled outside US in past 30 days?: No Contact w/someone who lives/traveled outside US past 30 days?: No Exposure to someone with infectious disease in past 14 days?: No Do you have a fever (greater than 100.4 F or 38 C)?: No Have you tested positive for COVID-19: No Exposed to someone with COVID-19 in past 14 days?: No Do you have a sore throat?: No Do you have a cough?: No Do you have any weakness?: No Do you have any diarrhea?: No Are you experiencing any unusual bleeding?: No Do you have any muscle aches/pain?: No Do you have any abdominal pain?: No Are you experiencing loss of taste or smell?: No [facility] Anesthesia Checklist Patient Identification Patient Identification: Arm Band Structural Data Admitted From: Home Planned Operative Procedure/s: Labor Epidural Consent for Planned Operative Procedure(s) Verified: Yes Verified Documents: Surgical Consent and History and Physical Additional verifications Anesthesia Reactions: No Hx Blood Transfusions: No Blood Transfusion Reaction: No Neurological Assessment Level of Consciousness: Awake, Alert and Appropriate Anesthesia Plan Anesthesia Risk discussed: Yes Anesthesia Plan: Verified ASA Class: II Anesthesia Type: Epidural
[2024-03-24] MEDS: ePHEDrine SULF 50MG/ML VIAL 10 MG IV (17:58)
[2024-03-24] MEDS: ONDANSETRON 4MG/2ML VIAL 4 MG IV (18:04)
[2024-03-24] MEDS: OXYTOCIN/RINGERS LACTATE 30 UNITS/500 ML BAG 40 UNITS IV (18:57)
--- NOTE | 2024-03-24 19:10 | EXP.DN ---
Delivery Note Delivery Date:: 03/24/24 Delivery Time:: 18:52 Anesthesia Type: Epidural Was labor medically induced?: No Induction method: none Gestational age (weeks): 36 Infant delivered prior to 39 weeks?: Yes Justification for early elective delivery:: Active Labor Gender: Male at 1 minute: 8 at 5 minutes: 9 Delivery Procedure:: Mom complete with epidural. Pushed for approximately 43 minutes. Head delivered spontaneously over intact perineum in OA position. Nuchal cord x 1, easily reduced. Posterior hand next to ear. Posterior arm and shoulder delivered. Anterior shoulder and remainder of body delivered spontaneously. Baby placed on maternal abdomen, mouth and nares bulb suctioned, warmed/dried and stimulated. Delayed cord clamping was performed for 60 seconds. Cord was clamped and cut by father of baby. Cord blood was obtained. Placenta delivered spontaneously and intact. Placenta will be sent to pathology for review. First degree laceration repaired with 3-0 Vicryl. Hemostasis noted. Mom and baby were skin to skin and doing well after delivery. Live male baby (baby's name is Ishmael) APGARs 8 (1 min), 9 (5 min) EBL 75 mL Placental Delivery Description: Spontaneous
[2024-03-24 20:20] VITALS: BP 114/74; PULSE 96; RESP 16; O2SAT 97
[2024-03-24] MEDS: IBUPROFEN 400 MG TABLET 800 MG PO (23:48)
[2024-03-24] MEDS: BENZOCAINE-MENTHOL SPRAY 56GM CAN TP (23:48)
[2024-03-24] MEDS: WITCH HAZEL 40 PADS/BOX 1 EACH TP (23:49)
--- NOTE | 2024-03-25 03:54 | P.PN_ITS ---
Subjective *Date: 03/25/24 *Time: 03:54 Interval history: PPD # 1 s/p Feeling well. Pain controlled. Formula feeding. Lochia is appropriate. Voiding without difficulty and passing flatus. Tolerating regular diet. Denies fever/chills, chest pain and shortness of breath. No headaches, vision changes, lightheadedness/dizziness. No lower extremity swelling. Ambulating well ad jacob. Medical Exam Vital signs and Labs for Last 24 Hours: Vital Signs Temp Pulse Resp BP Pulse Ox O2 Del Method 03/24/24 13:02 97.9 F 91 H 17 123/73 97 Room Air Intake and Output 03/24/24 03/24/24 03/25/24 15:59 23:59 07:59 Other: Weight 150 lb Laboratory Results - last 24 hr 03/24/24 12:53: Urine Color Yellow, Urine Appearance Clear, Urine pH 8.0, Ur Specific [employer] 1.020, Urine Protein Negative, Urine Glucose (UA) Negative, Urine Ketones Negative, Urine Blood Negative, Urine Nitrate Negative, Urine Bilirubin Negative, Urine Urobilinogen 1.0, Ur Leukocyte Esterase Negative, Urine RBC Occasional, Urine WBC Occasional, Ur Squamous Epith Cells 3-5, Urine Bacteria None 03/24/24 13:02: Urine Opiates Screen Negative, Urine Methadone Screen Negative, Ur Barbituates Screen Negative, Ur Phencyclidine Scrn Negative, Ur Amphetamines Screen Negative, U Benzodiazepines Scrn Negative, Urine Cocaine Screen Negative, U Marijuana (THC) Screen Negative 03/24/24 14:45: WBC 11.4 H, RBC 4.29, Hgb 12.6, Hct 37.0, MCV 86.2, MCH 29.4, MCHC 34.1, RDW 12.4, Plt Count 220, MPV 10.1, Neut % (Auto) 78.1, Lymph % (Auto) 16.0, [place] % (Auto) 4.6, Eos % (Auto) 0.6, Baso % (Auto) 0.3, Neut # (Auto) 8.9 H, Lymph # (Auto) 1.8, [place] # (Auto) 0.5, Eos # (Auto) 0.1, Baso # (Auto) 0.0, Blood Type A Positive, Antibody Screen Negative I & O for Labs for Last 24 Hours: Intake & Output 03/22/24 03/23/24 03/24/24 03/25/24 23:59 23:59 23:59 23:59 Weight 150 lb Head: Present atraumatic and normocephalic ENT: Present normal exam Neck: Present normal inspection and full ROM Respiratory: Present CTA bilaterally and normal respiratory effort Cardiac: Present Reg Rate and Rhythm GI: Present soft; Absent distention or tenderness Comments:: Uterine fundus firm and below umbilicus Rectal (female): Present deferred (female): Present deferred Extremities: Present normal inspection and full ROM; Absent edema or calf tenderness Neuro: Present alert, awake and moves all extremities Assessment and Plan *Assessment and plan (1) Status post normal vaginal delivery: Status: Acute Category: Medical (2) spontaneous labor with delivery: Status: Acute Qualifiers: Fetus number: single or unspecified fetus Qualified Code(s): O60.10X0 - labor with delivery, unspecified trimester, not applicable or unspecified Category: Medical Code(s): O60.10X0 - labor with delivery, unspecified trimester, not applicable or unspecified (3) Hypothyroidism affecting , antepartum: Status: Acute Category: Medical Code(s): O99.280 - Endocrine, nutritional and metabolic diseases complicating , unspecified trimester; E03.9 - Hypothyroidism, unspecified (4) History of anxiety: Status: Acute Category: Medical Code(s): Z86.59 - Personal history of other mental and behavioral disorders (5) Hx of preeclampsia, prior , currently : Status: Acute Category: Medical Code(s): O09.299 - Supervision of with other poor reproductive or obstetric history, unspecified trimester (6) 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
[2024-03-25 04:26] VITALS: BP 111/71; PULSE 99; RESP 19; TEMP 36.8; O2SAT 97
[2024-03-25] MEDS: ACETAMINOPHEN 500MG TAB 1000 MG PO (06:33)
[2024-03-25 08:07] LABS: Basophils % 0.2 % (0.1-2.0); Eosinophils # 0.1 K/mm3 (0.0-0.4); Eosinophils % 0.5 % (0.1-12.0); Hematocrit 36.3 % (37.0-47.0); Hemoglobin 12.2 g/dL (12.2-16.2); Lymphocytes # 2.5 K/mm3 (0.7-4.5); Lymphocytes % 18.8 % (10-50); Mean Corpuscular HGB Conc 33.6 g/dL (31.8-35.4); Mean Corpuscular Hemoglobin 29.3 pg (27.0-31.2); Mean Corpuscular Volume 87.3 fl (81-99); Mean Platelet Volume 10.1 fl (7.4-10.4); Monocytes % 7.8 % (1.7-9.3); Neutrophils # 9.6 K/mm3 (1.8-7.8); Neutrophils % 72.2 % (37.0-80.0); Platelet Count 199 K/mm3 (142-424); Red Blood Count 4.16 M/mm3 (4.20-5.40); Red Cell Distribution Width 12.4 % (11.5-17.5); White Blood Count 13.3 K/mm3 (4.8-10.8)
[2024-03-25 08:23] VITALS: BP 119/76; PULSE 76; RESP 16; TEMP 36.6; O2SAT 96
[2024-03-25] MEDS: IBUPROFEN 400 MG TABLET 800 MG PO ×2 (08:36→16:05)
[2024-03-25 15:14] LABS: RPR W/RFX Titers Nonreactive (Nonreactive)
[2024-03-25] MEDS: PRENATAL MULTIVITAMIN W/IRON 1 EACH PO (16:05)
[2024-03-25 20:53] VITALS: BP 118/66; PULSE 75; RESP 16; TEMP 36.6; O2SAT 97
[2024-03-26] MEDS: IBUPROFEN 400 MG TABLET 800 MG PO ×2 (00:38→10:30)
[2024-03-26 04:36] VITALS: BP 117/72; PULSE 60; RESP 14; TEMP 36.4; O2SAT 98
[2024-03-26] MEDS: LEVOTHYROXINE 88MCG (0.088MG) TAB 88 MCG PO (07:10)
[2024-03-26 07:55] VITALS: BP 114/78; PULSE 66; RESP 16; TEMP 36.7; O2SAT 97
[2024-03-26 08:00] VITALS: BP 118/81; PULSE 87; RESP 18; O2SAT 93
--- NOTE | 2024-03-26 08:35 | P.PN_ITS ---
Subjective *Date: 03/26/24 *Time: 08:35 Interval history: Keyona is resting comfortably this morning. Feeling well. Pain controlled. Formula feeding. Lochia is light. Voiding without difficulty and passing flatus. Tolerating regular diet. Denies fever/chills, chest pain and shortness of b reath. No headaches, vision changes, lightheadedness/dizziness. No lower extremity swelling. Ambulating well ad jacob. Medical Exam Vital signs and Labs for Last 24 Hours: Vital Signs Temp Pulse Resp BP Pulse Ox O2 Del Method 03/26/24 04:36 97.6 F 60 14 117/72 98 Room Air 03/25/24 20:53 97.8 F 75 16 118/66 97 Room Air Laboratory Results - last 24 hr 03/24/24 14:45: RPR w/Rflx to Titer Nonreactive I & O for Labs for Last 24 Hours: Intake & Output 03/23/24 03/24/24 03/25/24 03/26/24 23:59 23:59 23:59 23:59 Weight 150 lb Head: Present atraumatic and normocephalic ENT: Present normal exam and mucous membranes moist Neck: Present full ROM Respiratory: Present CTA bilaterally and normal respiratory effort Cardiac: Present Reg Rate and Rhythm GI: Present soft; Absent distention or tenderness Rectal (female): Present deferred (female): Present deferred Extremities: Present normal inspection and full ROM; Absent tenderness, edema or calf tenderness Neuro: Present alert, awake and moves all extremities Assessment and Plan *Assessment and plan (1) Status post normal vaginal delivery: Status: Acute Category: Medical (2) spontaneous labor with delivery: Status: Acute Qualifiers: Fetus number: single or unspecified fetus Qualified Code(s): O60.10X0 - labor with delivery, unspecified trimester, not applicable or unspecified Category: Medical Code(s): O60.10X0 - labor with delivery, unspecified trimester, not applicable or unspecified (3) Hypothyroidism affecting , antepartum: Status: Acute Category: Medical Code(s): O99.280 - Endocrine, nutritional and metabolic diseases complicating , unspecified trimester; E03.9 - Hypothyroidism, unspecified (4) History of anxiety: Status: Acute Category: Medical Code(s): Z86.59 - Personal history of other mental and behavioral disorders (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 Baby is staying another day secondary to 36 weeks at Plan d/c home tomorrow
[2024-03-26 16:00] VITALS: BP 117/74; PULSE 61; RESP 18; TEMP 36.7; O2SAT 94
[2024-03-26] MEDS: PRENATAL MULTIVITAMIN W/IRON 1 EACH PO (17:18)
[2024-03-27 06:18] VITALS: BP 119/74; PULSE 62; RESP 17; TEMP 36.7; O2SAT 97
--- NOTE | 2024-03-27 07:44 | P.DS_ITS ---
General Admission date:: 03/24/24 Discharge date: 03/27/24 HPI HPI HPI: Ms Keyona Vazquez is a 28 yo at 36w0d who presented to [facility] L&D with complaint of painful contractions that started around 0830 this morning. She reports an elevated BP at home this morning. She has had good care. complicated by hypothyroidism, history of preeclampsia with prior , and history of delivery at 34 weeks. TSH 02/21/24 was 0.99. BP in L&D was normotensive. No headaches, vision changes or RUQ pain. Cervical exam on admission was 4/70/-2 on admission. Nitrazine paper used to test for possible rupture of membranes. Nitrazine negative. Repeat exam 2 hours later was 7/75/-2. GBS unknown. Hospital Course Hospital Course Hospital Course: Gerda Vazquez is a pleasant 28yo PPD#2 from an 03/24/2024 at 1852. She arrived in active labor and delivered a live viable male , Ishmael, at 36 weeks gestation. Apgars were 8 and 9. weighed 6 pounds 7 ounces and was 18 inches long. Head circumference 30.5 cm. She has done well and has remained afebrile with her at her hospitalization. She is eating and drinking and ambulating. She is bottlefeeding. Her lochia is normal. She has A Rh+ blood, she is rubella immune and was group B streptococcus unknown. She is undecided on contraception and we will discuss further at her visits She will be discharged home to follow-up with Dr. Trevizo in 2 weeks time. She will continue with her vitamins. She will take ibuprofen as well. She was given the usual instructions with respect to limiting her activity, driving and sexual activity. She was given instructions with respect to wound care. Her condition on discharge is stable. Exam Data for Last 24 hours Vital signs and Labs for Last 24 Hours: Temp Pulse Resp BP Pulse Ox O2 Del Method 98.0 F 62 17 119/74 97 Room Air 03/27/24 06:18 03/27/24 06:18 03/27/24 06:18 03/27/24 06:18 03/27/24 06:18 03/27/24 06:18 I & O for Last 24 hours: Intake & Output 03/24/24 03/25/24 03/26/24 03/27/24 23:59 23:59 23:59 23:59 Weight 150 lb Narrative: General: patient is alert oriented in no acute distress and responds appropriately to questions. Appears to be in minimal pain. HEENT: NCAT, EOMI, moist mucous membranes, neck supple with full ROM Cardiovascular: bradycardia without murmurs or rubs Pulmonary: Clear to auscultation bilaterally, nonlabored breathing, symmetric chest rise Abdominal: Fundus below the umbilicus, firm, and tenderness appropriate for the period lochia appropriate. Extremities: trace edema, no tenderness or cyanosis noted Skin: Normal turgor, intact, warm. Negative for erythema, pallor, petechia, or lesions Neurologic: Negative for sensory or motor deficit Psychiatric: Normal affect, normal thought process, good judgment and insight, no depression or anxious mood appreciated. DS: Diagnosis Discharge Diagnosis (1) Status post normal vaginal delivery: Status: Acute (2) spontaneous labor with delivery: Status: Acute Code(s): O60.10X0 - labor with delivery, unspecified trimester, not applicable or unspecified Qualifiers: Fetus number: single or unspecified fetus Qualified Code(s): O60.10X0 - labor with delivery, unspecified trimester, not applicable or unspecified (3) Hypothyroidism affecting , antepartum: Status: Acute Code(s): O99.280 - Endocrine, nutritional and metabolic diseases complicating , unspecified trimester; E03.9 - Hypothyroidism, unspecified (4) History of anxiety: Status: Acute Code(s): Z86.59 - Personal history of other mental and behavioral disorders (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: Status: Acute Code(s): Z14.8 - Genetic carrier of other disease (6) Hx of preeclampsia, prior , currently : Status: Acute Code(s): O09.299 - Supervision of with other poor reproductive or obstetric history, unspecified trimester Meds Home Medications and Allergies Home Medications ?Medication ?Instructions ?Recorded ?Confirmed ?Type levothyroxine 88 mcg capsule 88 mcg PO DAILY 01/24/24 03/25/24 History acetaminophen 500 mg tablet 500 mg PO Q6H PRN fever or pain 03/27/24 Rx #30 tabs ibuprofen 800 mg tablet 800 mg PO Q8H PRN pain #60 tabs 03/27/24 Rx sennosides 8.6 mg tablet (Senna 8.6 mg PO BIDP PRN Constipation 03/27/24 Rx Lax) #60 tabs New Prescriptions to Start Prescriptions: acetaminophen Ermelinda Trevizo ibuprofen Ermelinda Trevizo sennosides [Senna Lax] Ermelinda Trevizo Allergies Allergy/AdvReac Type Severity Reaction Status Date / Time Sulfa (Sulfonamide Allergy Intermediate I-HIVES Verified 03/06/24 14:12 Antibiotics) (SULFA (SULFONAMIDE ANTIBIOTICS)) Discharge Plan Disposition Patient Disposition: Home, Self-Care Discharge Order Discharge Orders: Discharge Order (Routine); Ordered 03/27/24 Ordered By: Ermelinda Trevizo Follow up Plan Follow up with: Ermelinda Trevizo DO [Staff Physician] - 2 weeks Prescriptions/Medication Reconciliation: New sennosides [Senna Lax] 8.6 mg Tablet 8.6 mg PO BIDP PRN (Reason: Constipation) Qty: 60 2RF ibuprofen 800 mg tablet 800 mg PO Q8H PRN (Reason: pain) Qty: 60 2RF acetaminophen 500 mg tablet 500 mg PO Q6H PRN (Reason: fever or pain) Qty: 30 3RF Continued levothyroxine 88 mcg capsule 88 mcg PO DAILY Discontinued aspirin [Adult Low Dose Aspirin] 81 mg tablet,delayed release (DR/EC) 81 mg PO DAILY Qty: 30 2RF Problem Reconciliation Problems Reviewed?: Yes Patient Discharge Instructions ACTIVITY: Continue current activity DIET: regular diet Additional Instructions: Congratulations on the delivery of your sweet baby boy. It is my privilege to be your doctor and I am so thankful I could be a part of your special day. Discharge: -Take 800 mg Ibuprofen every 8 hours as needed for pain. You can also take 500- 1000 mg of Tylenol in between doses, every 6-8 hours. -Colace can be taken 1-2 times per day as you need to soften your stool. Make sure to drink at least 8 cups of water per day. -Iron supplements can make you constipated. You can take iron tablets every other day if constipation is too bad. -Nothing in the vagina for 6 weeks - no intercourse, douching, tampons. No tub baths or swimming pools. -Do not lift greater than 20pounds for 2 weeks, this is the equivalent of 2 gallons of milk. -Reasons to return to L&D or call On-Call doctor - fever (greater than 100.4) - heavy vaginal bleeding (soaking through 1 pad in less than 2 hours or passing clots that are egg sized) - vaginal discharge (malodorous and/or purulent) - severe headaches, leg tenderness/edema, or any other symptoms that warrant immediate medical attention. depression/blues - Normal to feel anxious/overwhelmed for first 2 weeks - Talk to your doctor if: anxiety lasts over 2 weeks, trouble bonding with baby, withdrawing from other family members, thoughts of harming yourself or others Blood pressure and preeclampsia instructions. With 1. Please take your blood pressure 1-2 daily. 2. Please call if greater than 2 values are higher than: 150 systolic (the top number) or 100 diastolic (the bottom number). 3. Please go to the emergency room or labor and delivery triage if any value is higher than: 160 systolic (the top number) or 110 diastolic (the bottom number). 4. Please call if unrelenting headache (does not go away with rest or Tylenol or ibuprofen), changes in vision (spots, floaters, flashes of light), chest pain, shortness of breath, or right upper quadrant (liver) abdominal pain. Ermelinda Trevizo DO [facility] [phone] *Nothing in the Vagina for 6 weeks* *No strenuous activity* *No heavy lifting* *No tub baths until okay's by MD* Patient Instructions: Depression, Hemorrhage, DI for Labor and Delivery, Vaginal , DI for Pre-eclampsia, [facility] Post Discharge Instructions Print Language: Macedonian Providers Primary Care Provider: Chago Ireland Admit Provider: Gracie Oconnell Attending Provider: Gracie Oconnell
[2024-03-27 08:00] VITALS: BP 122/78; PULSE 60; RESP 18; TEMP 36.4; O2SAT 99
[2024-03-27] MEDS: LEVOTHYROXINE 88MCG (0.088MG) TAB 88 MCG PO (08:02)
== END 2024-03-27 11:15 | disposition home or self-care (01) | DRG 807 ==
LOC: OB 12:47
PROVIDERS: Admitting Provider Obstetrics & Gynecology; PCP Internal Medicine Adolescent Medicine; Visit Provider Obstetrics & Gynecology
DX: O60.14X0 Preterm labor third trimester with preterm delivery third trimester, not applicable or unspecified (principal); Z37.0 Single live birth; O69.81X0 Labor and delivery complicated by cord around neck, without compression, not applicable or unspecified; Z3A.36 36 weeks gestation of pregnancy; O70.0 First degree perineal laceration during delivery; O99.284 Endocrine, nutritional and metabolic diseases complicating childbirth; Z14.8 Genetic carrier of other disease; E03.9 Hypothyroidism, unspecified
CPT/HCPCS: 36415; 59025; 80307; 81001; 85025; 86592; 86850; 94761; G0283; J2405; J3010; J7120

== ENCOUNTER 2024-10-02 10:12 | Outpatient (CLI) | payer OTHER, SELFPAY ==
--- OUTSIDE RECORDS SUMMARY | 2024-08-24 10:00 | XMS_ITS ---
Author Organization [facility] D ML Address [address] [place] [address] Care Team Providers Care Physical Testing Supervisor Name Role Phone Chago Ireland Primary Care Provider Roxanne Pina Unavailable [phone] Leeanne Hidalgo Unavailable [phone] Allergies Allergen (clinical drug ingredient) Drug/Non Drug Allergy documented on EMR Reaction Allergy Type Onset Date Status SULFA (uncoded) rash Allergy Acti ve Results Component Value Reference Range Notes COMPREHENSIVE METABOLIC PANE L (53075) Reviewed date:08/27/2024 10:04:33 AM Interpretation: Performing Lab:CB, [facility] [address], [facility] Asa Browne Notes/Report: NON-FASTING; NON-FASTING; NON-FASTING GLUCOSE 67 65-99 mg/dL Fasting reference interval UREA NITROGEN (BUN) 13 7-25 mg/dL CREATININE 0.86 0.50-0.96 mg/dL EGFR 94 > OR = 60 mL/min/1.73m2 BUN/CREATININE RATIO SEE NOTE: 6-22 (calc) Not Reported: BUN and Creatinine are within reference range. SODIUM 141 135-146 mmol/L POTASSIUM 4.3 3.5-5.3 mmol/L CHLORIDE 103 98-110 mmol/L CARBON DIOXIDE 30 20-32 mmol/L CALCIUM 9.8 8.6-10.2 mg/dL PROTEIN, TOTAL 7.8 6.1-8.1 g/dL ALBUMIN 4.9 3.6-5.1 g/dL GLOBULIN 2.9 1.9-3.7 g/dL (calc) ALBUMIN/GLOBULIN RATIO 1.7 1.0-2.5 (calc) BILIRUBIN, TOTAL 0.7 0.2-1.2 mg/dL ALKALINE PHOSPHATASE 90 31-125 U/L AST 13 10-30 U/L ALT 10 6-29 U/L CBC (INCLUDES DIFF/PLT) ([id number] 9) Reviewed date:08/27/2024 10:04:33 AM Interpretation: Performing Lab:DOLLY, [facility] [address], [place] Asa Browne Notes/Report: NON-FASTING; NON-FASTING; NON-FASTING WHITE BLOOD CELL COUNT 6.0 3.8-10.8 Thousand/ uL RED BLOOD CELL COUNT 4.71 3.80-5.10 Million/uL HEMOGLOBIN 14.0 11.7-15.5 g/dL HEMATOCRIT 43.5 35.0-45.0 % MCV 92.4 80.0-100.0 fL MCH 29.7 27.0-33.0 pg MCHC 32.2 32.0-36.0 g/dL For adults, a slight decrease in the calculated MCHC value (in the range of 30 to 32 g/dL) is most likely not clinically significant; however, it should be interpreted with caution in correlation with other red cell parameters and the patient's clinical condition. RDW 12.5 11.0-15.0 % PLATELET COUNT 278 140-400 Thousand/uL MPV 9.5 7.5-12.5 fL ABSOLUTE NEUTROPHILS 2826 8205-4895 cells/uL ABSOLUTE LYMPHOCYTES 2580 850-3900 cells/uL ABSOLUTE MONOCYTES 402 200-950 cells/uL ABSOLUTE EOSINOPHILS 162 15-500 cells/uL ABSOLUTE BASOPHILS 30 0-200 cells/uL NEUTROPHILS 47.1 LYMPHOCYTES 43.0 MONOCYTES 6.7 EOSINOPHILS 2.7 BASOPHILS 0.5 TSH W/REFLEX TO FT4 (30325) Reviewed date:08/27/2024 10:04:33 AM Interpretation: Performing Lab:DOLLY, [facility] [address], [place] Asa Browne Notes/Report: NON-FASTING; NON-FASTING; NON-FASTING TSH W/REFLEX TO FT4 2.75 Reference Range > or = 20 Years 0.40-4.50 Ranges First trimester 0.26-2.66 Second trimester 0.55-2.73 Third trimester 0.43-2.91 REASON FOR VISIT upper Abdominal Pain radiating to back , stool is different , nausea , loss of appetite Medications Medication SIG (Take, Route, Frequency, Duration) Notes Start Date End Date Status Famotidine 20 MG 1 tablet Orally twic e a day; Duration: 30 days 08/24/2024 Active Levothyroxine Sodium 88 MCG 1 tab(s) ora lly once a day; Duration: 30 days Active Vital Signs Temperature 98 degrees Fahrenheit 08/24/2024 Heart Rate 92 /min 08/24/2024 Blood pressure systolic 138 mm Hg 08/25/19 Blood pressure diastolic 80 mm Hg 025 Height 62 in 08/24/2024 Weight 133 lbs 08/24/2024 BMI 24.32 kg/m2 08/24/2024 Encounters Encounter Location Date Provider Diagnosis [address] [address] 08/24/2024 Leeanne Noahes GERD without esophag itis K21.9 ; Epigastric pain R10.13 ; Autoimmune hypothyroidism E06.3 and Fatigue, unspecified type R53.83 Assessments Encounter Date Diagnosis (ICD Code) Assessment Notes Treatment Notes Treatment Clinical Notes Section Notes 08/24/2024 GERD without esophagitis (ICD-10 - K21.9) Discussed etiology of reflux. Start trial of H2 ravi as stated above. Avoid certain foods that exacerbate symptoms, such as caffeine and spicy foods. RTC if no improvement. 08/24/2024 Epigastric pain (ICD-10 - R10.13) Likely related to GERD/gastritis , see plan above 08/24/2024 Autoimmune hypothyroidism (ICD-10 - E06.3) 08/24/2024 Fatigue, unspecified type (ICD-10 - R53.83) Labs drawn to r/o underlying pathology Plan Of Treatment Medication Medication Name Sig Start Date Stop Date Notes Famotidine 20 MG 1 tablet Orally twic e a day; Duration: 30 days 08/24/2024 Treatment Notes Assessment Notes GERD without esophagitis Discussed etiol ogy of reflux. Start trial of H2 ravi as stated above. Avoid certain foods that exacerbate symptoms, such as caffeine and spicy foods. RTC if no improvement. Epigastric pain Likely related to GE RD/gastritis, see plan above Fatigue, unspecified type Labs drawn to r/o underlying pathology Next Appt Details Follow Up: pending labs, prn , Reason: Progress Notes * Keyona MICHELLE NDOB:1995 (29 yo F)Acc No.[id number]:08/24/2024 Progress Notes Patient: Keyona SOLIMAN Provider: Joie Hidalgo, ESTUARDO :1995 A ge:29 Y S ex:Female Date:08/24/2024 Address:[address] [place], [place] [id number] Pcp:Chago Ireland Subjective: * Chief Complaints: * 1 . upper Abdominal Pain radiating to back , stool is different , nausea , loss of appetite. * HPI: G astroenterology: 29 year old female presents with c/o abdominal pain u pper abd. c/o heartburn. c/o nausea. c/o diarrhea i ntermittent. Denies : vomiting. D enies : fever. D enies : abdominal distension. D enies : blood in stool. Presents with intermittent epigastric pain for the last month. At times severe and associated with heartburn. Epigastric region, radiates to mid back. Worse after eating. Also has intermittent lower abd cramping, diarrhea for the last few months. Appetite has decreased, feels tired all the time. * ROS: C ONSTITUTIONAL: no L oss of appetite. n o F ever. D ERMATOLOGY: no R christina. F EMALE REPRODUCTIVE: Reviewed, No Symptoms Reported: Y es. U ROLOGY: Reviewed, No Symptoms Reported: Y es. * Medical History: A DD, GERD, Autoimmune Hypothyroidism. * Medications: T aking Levothyroxine Sodium 88 MCG Capsule 1 tab(s) orally once a day , Discontinued Amoxicillin-Pot Clavulanate 875-125 MG Tablet 1 tablet Orally every 12 hrs , Medication List reviewed and reconciled with the patient * Allergies: S ULFA: rash. Objective: * Vitals: N urse: dw, Pain: 0, Temp: 98, RR: 16, HR: 92, BP: 138/80, Ht: 62, Wt: 133, BMI:24.32. * Examination: G astroenterology: General Appearance: p leasant, NAD. Oral cavity: n ormal. Sclera: a nicteric. Heart sounds: r egular, normal S1 S2 , no murmurs. Lungs: c lear, no crackles or wheezes. Abdomen: s oft, BS present, mild epigastric tenderness,?no guarding or rigidity, no masses felt. Hernias: n one. Skin W ithout acute rashes. Assessment: * Assessment: 1. G ERD without esophagitis - K21.9 (Primary) 2 . E pigastric pain - R10.13 3 . A utoimmune hypothyroidism - E06.3 4 . F atigue, unspecified type - R53.83 Plan: * Treatment: 2. E pigastric pain Notes: Likely related to GERD/gastritis, see plan above 3. A utoimmune hypothyroidism L AB: TSH W/REFLEX TO FT4 (09400) Value Reference Range T SH W/REFLEX TO FT4 2.75 - mIU/L * Leeanne Hidalgo 08/28/19 08:43:42 AM EDT > labs look good Earle Mcgarry 08/27/2024 10:04:16 AM EDT > pt notifiedThis lab was reviewed by Earle Mcgarry on 08/27/2024 at 10:04 AM EDT 4.?Fatigue, unspecified type?LAB: COMPREHENSIVE METABOLIC PANEL (43680)* Value Reference Range G LUCOSE 67 65-99 - mg/dL * U INES NITROGEN (BUN) 13 7-25 - mg/dL * C REATININE 0.86 0.50-0.96 - mg/dL * B UN/CREATININE RATIO SEE NOTE: 622 - (calc) * S ODIUM 141 135-146 - mmol/L * P OTASSIUM 4.3 3.5-5.3 - mmol/L * C HLORIDE 103 98-110 - mmol/L * C ARBON DIOXIDE 30 20-32 - mmol/L * C ALCIUM 9.8 8.6-10.2 - mg/dL * P ROTEIN, TOTAL 7.8 6.1-8.1 - g/dL * A LBUMIN 4.9 3.6-5.1 - g/dL * G LOBULIN 2.9 1.9-3.7 - g/dL (calc ) * A LBUMIN/GLOBULIN RATIO 1.7 1.0-2.5 - (calc) * B ILIRUBIN, TOTAL 0.7 0.2-1.2 - mg/dL * A LKALINE PHOSPHATASE 90 31-125 - U/L * A ST 13 10-30 - U/L * A LT 10 6-29 - U/L * E GFR 94 > OR = 60 - mL/min/1 .73m2 * Leeanne Hidalgo 08/28/19 08:43:42 AM EDT > labs look good Earle Mcgarry 08/27/2024 10:04:16 AM EDT > pt notifiedThis lab was reviewed by Earle Mcgarry on 08/27/2024 at 10:04 AM EDT ?LAB: CBC (INCLUDES DIFF/PLT) (2663)* Value Reference Range W ELIDA BLOOD CELL COUNT 6.0 3.8-10.8 - Thousan d/uL * R ED BLOOD CELL COUNT 4.71 3.80-5.10 - Million/ uL * H EMOGLOBIN 14.0 11.7-15.5 - g/dL * H EMATOCRIT 43.5 35.0-45.0 - % * M CV 92.4 80.0-100.0 - fL * M CH 29.7 27.0-33.0 - pg * M CHC 32.2 32.0-36.0 - g/dL * R DW 12.5 11.0-15.0 - % * P LATELET COUNT 278 140-400 - Thousand/u L * N EUTROPHILS 47.1 - % * A BSOLUTE NEUTROPHILS 2826 4796-8580 - cells/uL * L YMPHOCYTES 43.0 - % * A BSOLUTE LYMPHOCYTES 2580 850-3900 - cells/uL * M ONOCYTES 6.7 - % * A BSOLUTE MONOCYTES 402 200-950 - cells/uL * E OSINOPHILS 2.7 - % * A BSOLUTE EOSINOPHILS 162 15-500 - cells/uL * B ASOPHILS 0.5 - % * A BSOLUTE BASOPHILS 30 0-200 - cells/uL * M PV 9.5 7.5-12.5 - fL * Leeanne Hidalgo 08/28/19 08:43:42 AM EDT > labs look good Earle Mcgarry 08/27/2024 10:04:16 AM EDT > pt notifiedThis lab was reviewed by Earle Mcgarry on 08/27/2024 at 10:04 AM EDT Notes: Labs drawn to r/o underlying pathology?? * Follow Up: p ending labs, prn * * Sign off status: Completed true * Provider: Joie Hidalgo APRN Date: 08/24/2024 Generated for Rita thomas/Fakvngg/eTransmitting on: 0 10/02/2024 10:15 AM EDT History and Physical Notes * HPI (History of Present Illness) Category Sub-Category Detail Notes Category Not es Gastroenterology fever Presents wi th intermittent epigastric pain for the last month. At times severe and associated with heartburn. Epigastric region, radiates to mid back. Worse after eating. Also has intermittent lower abd cramping, diarrhea for the last few months. Appetite has decreased, feels tired all the time vomiting abdominal pain upper abd diarrhea intermittent blood in stool nausea abdominal distension heartburn Examination Category Sub-Category Detail Notes Category Not es Gastroenterology Oral cavity: normal Sclera: anicteric Heart sounds: regular, normal S1 S 2 , no murmurs Lungs: clear, no crackles o r wheezes Abdomen: soft, BS present, mi ld epigastric tenderness, no guarding or rigidity, no masses felt Hernias: none General Appearance: pleasant, NAD Skin Without acute rashes
--- OUTSIDE RECORDS SUMMARY | 2024-08-31 11:45 | XMS_ITS ---
Author Organization [facility] D ML Address [address] [place] [address] Care Team Providers Care Margin Clerk Name Role Phone Chago Ireland Primary Care Provider Roxanne Pina Unavailable [phone] Leeanne Hidalgo Unavailable [phone] Allergies Allergen (clinical drug ingredient) Drug/Non Drug Allergy documented on EMR Reaction Allergy Type Onset Date Status SULFA (uncoded) rash Allergy Acti ve Results Component Value Reference Range Notes Urinalysis Reviewed date:09/03/2024 09:10:37 AM Interpretation: Performing Lab: Notes/Report: Color/Clarity yellow Leuk neg Nitrite neg Urobili 0.2 Protein neg pH 6.0 Blood neg Sp. Gr. 1.010 Ketone neg Bili neg Glucose neg US ABD Reviewed date:09/04/2024 09:10:51 AM Interpretation: Performing Lab: Notes/Report: [address] [place] [address] Name: HUGO MICHELLE Exam Date: 09/03/2024 : 1995 Age 29 years Gender: F Physician: LEEANNE PHILIP Facility: [facility] Facility HSV: Outpatient Exam: US ABD Ultrasound abdomen HISTORY: Epigastric pain COMPARISON: None TECHNIQUE: B-mode color and postoperative FINDINGS: The liver is 17.4 cm in length and normal echotexture. Pancreas is normal in size and echo pattern. There is hepatopedal portal venous flow in the main portal vein with color and pulse Doppler. Gallbladder wall is 2.6 mm. No definite shadowing stones or surrounding fluid evident. CBD is 2 mm. Right kidney is 9 x 4 x 4.4 cm and the left is 9 x 4 x 3.7 cm. There is no shadowing stone, mass or hydronephrosis on either side. Aorta 1.1 cm AP dimension. Peak systolic velocity 100 cm/s. Normal waveform. There is no free fluid in the abdomen. IVC flow is normal. Normal hepatic venous flow into the IVC. The spleen is 10 cm in length and 4 x 3 cm transverse and AP dimension. It appears homogeneous. IMPRESSION: Unremarkable ultrasound of the abdomen. Electronically signed by: Tashia Casiano MD 09/03/2024 11:27 AM EDT RP Dictated By: TASHIA CASIANO Transcribed By: Transcribed On: 09/03/2024 10:51 AM Electronically signed by: TASHIA CASIANO 09/03/2024 Thank you for referring HUGO MICHELLE to [facility]. Legally authenticated by OH LAO MD 2024-09-03 10:51:08 REASON FOR VISIT abdominal pain no better - 1 wk f/u Medications Medication SIG (Take, Route, Frequency, Duration) Notes Start Date End Date Status Famotidine 20 MG 1 tablet Orally twic e a day; Duration: 30 days 08/24/2024 Active Levothyroxine Sodium 88 MCG 1 tab(s) ora lly once a day; Duration: 30 days Active Vital Signs Temperature 97.8 degrees Fahrenheit 09/01/19 25 Heart Rate 88 /min 08/31/2024 Blood pressure systolic 125 mm Hg 09/01/19 25 Blood pressure diastolic 80 mm Hg 025 Height 62 in 08/31/2024 Weight 133 lbs 08/31/2024 BMI 24.32 kg/m2 08/31/2024 Encounters Encounter Location Date Provider Diagnosis [address] [address] 08/31/2024 Leeanne McNees Epigastric pain R10. 13 ; GERD without esophagitis K21.9 ; Right flank pain R10.9 ; Nausea R11.0 and Chronic constipation K59.09 Assessments Encounter Date Diagnosis (ICD Code) Assessment Notes Treatment Notes Treatment Clinical Notes Section Notes 08/31/2024 Epigastric pain (ICD-10 - R10.13) Unique presentation with unremarkable labs, UA and exam. May be related to GB disease, gastritis/GERD, constipation, muscle spasm or kidney stone or though less likely as UA with neg for blood. Ringgold diet. Start MiraLAX daily. Abd US on Tuesday. Sooner return precautions discussed 08/31/2024 GERD without esophagitis (ICD-10 - K21.9) 08/31/2024 Right flank pain (ICD-10 - R10.9) 08/31/2024 Nausea (ICD-10 - R11.0) 08/31/2024 Chronic constipation (ICD-10 - K59.09) 08/31/2024 Other Plan Of Treatment Treatment Notes Assessment Notes Epigastric pain Unique presentation with unremarkable labs, UA and exam. May be related to GB disease, gastritis/GERD, constipation, muscle spasm or kidney stone or though less likely as UA with neg for blood. [place] diet. Start MiraLAX daily. Abd US on Tuesday. Sooner return precautions discussed Next Appt Details Follow Up: pending USMorenita n: Progress Notes * Hugo MICHELLE NDOB:1995 (29 yo F)Acc No.[id number]:08/31/2024 Progress Notes Patient: Lorelei GONZALEZ Hugo Blakely Provider: Joie Hidalgo APRN :1995 A ge:29 Y S ex:Female Date:08/31/2024 Address:[address] [place] [address] [id number] Pcp:Chaog Ireland Subjective: * Chief Complaints: * 1 . Abdominal pain no better - 1 wk f/u. * HPI: G astroenterology: 29 year old female presents with c/o abdominal pain u pper abd. c/o heartburn. c/o nausea. c/o constipation. c/o diarrhea i ntermittent. Denies : vomiting. D enies : fever. D enies : abdominal distension. D enies : blood in stool. Presents for FU on abd/back pain. Seen earlier this week, labs obtained and treated for GERD due to c/o epigastric pain radiating to back. Last night had episode of severe midline to right back pain that radiated to abd, woke her from sleep. Lasting around 30 min. Assoc with nausea. Reports intermittent diarrhea/constipation. No pain at present. No correlation with food. Not aggravated by movement. * ROS: C ONSTITUTIONAL: no L oss of appetite. n o F ever. D ERMATOLOGY: no R christina. F EMALE REPRODUCTIVE: Reviewed, No Symptoms Reported: Y es. U ROLOGY: Reviewed, No Symptoms Reported: Y es. * Medical History: A DD, GERD, Autoimmune Hypothyroidism. * Surgical History: w isdom teeth . * Hospitalization/Major Diagno stic Procedure: D enies Past Hospitalization. * Family History: F ather: alive. M other: alive, One kidney. P aternal Grand Father: alive. P aternal Grand Mother: , Alzheimer. M aternal Grand Father: alive, Lung cancer, COPD. M aternal Grand Mother: , CVA. P aternal uncle: alive. P aternal aunt: alive. M aternal uncle: alive. M aternal aunt: alive. S iblings: alive. 1 brother(s) - healthy. .? Step brother. * Social History: S moking A re you a:: nonsmoker. R ecreational drug use: no. Exercise: yes. New since last visit: none. Home smoke detector use: yes. Caffeine: yes, less than daily. Living Will: No. Alcohol: no. Sexually active: no. Travel outside [place]: no. * Medications: T aking Levothyroxine Sodium 88 MCG Capsule 1 tab(s) orally once a day , Taking Famotidine 20 MG Tablet 1 tablet Orally twice a day , Medication List reviewed and reconciled with the patient * Allergies: S ULFA: rash. Objective: * Vitals: N urse: dw, Pain: 0, Temp: 97.8, RR: 16, HR: 88, BP: 125/80, Ht: 62, Wt: 133, BMI:24.32. * Examination: G eneral Examination: General P leasant and Cooperative, NAD on RA,. Chest: n ormal shape and expansion. Heart: R egular Rate and Rhythm, no murmur, rubs or gallops. Lungs: L CTAB, No wheezes, crackles or rhonchi, Good air movement,. Abdomen: S oft, NTND, BSNA, No organomegaly or peritoneal signs.. Peripheral pulses: n ormal (2+) bilaterally. Back: n o CVA tenderness, no pain with SLR bilaterally, no thoracic or LS spine, paraspinal muscle or SI joint tenderness. Psych N ormal Mood/Affect. Assessment: * Assessment: 1. E pigastric pain - R10.13 (Primary) 2 . G ERD without esophagitis - K21.9 3 . R ight flank pain - R10.9 4 . N ausea - R11.0 ? 5 . C hronic constipation - K59.09 Plan: * Treatment: * Notes: Unique presentation with unremarkable labs, UA and exam. May be related to GB disease, gastritis/GERD, constipation, muscle spasm or kidney stone or though less likely as UA with neg for blood. [place] diet. Start MiraLAX daily. Abd US on Tuesday. Sooner return precautions discussed??2.?Right flank pain?LAB: Urinalysis (Collection Date & Time - 08/31/2024)* Value Reference Range C olor/Clarity yellow * L euk neg * N itrite neg * U robili 0.2 * P rotein neg * p H 6.0 * B lood neg * S p. Gr. 1.010 * K etone neg * B maddy neg * G lucose neg * White, Earle R 08/31/2024 0 4:10:02 PM EDT > * Procedure Codes: 8 1002 URINALYSIS, Modifiers: QW * Follow Up: p ending US * * Sign off status: Completed true * Provider: Joie Hidalgo APRN Date: 0 08/31/2024 Generated for Cheryli ng/Dailyg/eTransmitting on: 0 10/02/2024 10:15 AM EDT History and Physical Notes * HPI (History of Present Illness) Category Sub-Category Detail Notes Category Not es Gastroenterology fever Presents fo r FU on abd/back pain. Seen earlier this week, labs obtained and treated for GERD due to c/o epigastric pain radiating to back. Last night had episode of severe midline to right back pain that radiated to abd, woke her from sleep. Lasting around 30 min. Assoc with nausea. Reports intermittent diarrhea/constipation. No pain at present. No correlation with food. Not aggravated by movement vomiting abdominal pain upper abd diarrhea intermittent blood in stool nausea constipation abdominal distension heartburn Examination Category Sub-Category Detail Notes Category Not es General Examination Heart: Regular Rate and Rhythm, no murmur, rubs or gallops Lungs: LCTAB, No wheezes, c rackles or rhonchi, Good air movement, Abdomen: Soft, NTND, BSNA, No organomegaly or peritoneal signs. Peripheral pulses: normal (2+) bilatera lly Back: no CVA tenderness, n o pain with SLR bilaterally, no thoracic or LS spine, paraspinal muscle or SI joint tenderness Chest: normal shape and exp ansion General Pleasant and Coopera tive, NAD on RA, Psych Normal Mood/Affect
--- OUTSIDE RECORDS SUMMARY | 2024-10-02 10:16 | XMS_ITS | Patient Health Record ---
Author Organization [facility] Address [address] [place] [address] Care Team Providers Care Physical Therapy Assistant Instructor Name Role Phone Chago Ireland Primary Care Provider [phone] Roxanne Pina Unavailable [phone] Leeanne Hidalgo Unavailable [phone] Migration, Provider Unavailable Unavailable Allergies Allergen (clinical drug ingredient) Drug/Non Drug Allergy documented on EMR Reaction Allergy Type Onset Date Status SULFA (uncoded) rash Allergy Acti ve Results Component Value Reference Range Notes US ABD Reviewed date:09/04/2024 09:10:51 AM Interpretation: Performing Lab: Notes/Report: [address] [place] [address] Name: HUGO MICHELLE Exam Date: 09/03/2024 : 1995 Age 29 years Gender: F Physician: LEEANNE PHILIP Facility: [facility] Facility HSV: Outpatient Exam: US ABD [...] Thank you for referring HUGO MICHELLE to [facility]. Legally authenticated by OH LAO MD 2024-09-03 10:51:08 Urinalysis Reviewed date:09/03/2024 09:10:37 AM Interpretation: Performing Lab: Notes/Report: Color/Clarity yellow Leuk neg Nitrite neg Urobili 0.2 Protein neg pH 6.0 Blood neg Sp. Gr. 1.010 Ketone neg Bili neg Glucose neg COMPREHENSIVE METABOLIC PANE L ([id number]) Reviewed date:10/14/2023 02:37:20 PM Interpretation: Performing Lab:CB, [facility] Enxy1723 [facility], [facility] HospitalQkedPC[address] Asa Browne Notes/Report: NON-FASTING; NON-FASTING; NON-FASTING; NON-FASTING GLUCOSE 78 65-99 mg/dL Fasting reference interval UREA NITROGEN (BUN) 7 7-25 mg/dL CREATININE 0.51 0.50-0.96 mg/dL EGFR 131 > OR = 60 mL/min/1.73m2 BUN/CREATININE RATIO SEE NOTE: 6-22 (calc) Not Reported: BUN and Creatinine are within reference range. SODIUM 137 135-146 mmol/L POTASSIUM 3.9 3.5-5.3 mmol/L CHLORIDE 103 98-110 mmol/L CARBON DIOXIDE 26 20-32 mmol/L CALCIUM 9.4 8.6-10.2 mg/dL PROTEIN, TOTAL 7.3 6.1-8.1 g/dL ALBUMIN 4.2 3.6-5.1 g/dL GLOBULIN 3.1 1.9-3.7 g/dL (calc) ALBUMIN/GLOBULIN RATIO 1.4 1.0-2.5 (calc) BILIRUBIN, TOTAL 0.6 0.2-1.2 mg/dL ALKALINE PHOSPHATASE 72 31-125 U/L AST 23 10-30 U/L ALT 33 6-29 U/L CBC (INCLUDES DIFF/PLT) (639 9) Reviewed date:10/14/2023 08:03:09 AM Interpretation: Performing Lab:DO[facility] [employer] [id number] [employer], [facility] [id number] Asa Browne Notes/Report: NON-FASTING; NON-FASTING; NON-FASTING; NON-FASTING WHITE BLOOD CELL COUNT 8.1 3.8-10.8 Thousand/ uL RED BLOOD CELL COUNT 4.72 3.80-5.10 Million/uL HEMOGLOBIN 14.2 11.7-15.5 g/dL HEMATOCRIT 43.3 35.0-45.0 % MCV 91.7 80.0-100.0 fL MCH 30.1 27.0-33.0 pg MCHC 32.8 32.0-36.0 g/dL RDW 12.1 11.0-15.0 % PLATELET COUNT 259 140-400 Thousand/uL MPV 9.3 7.5-12.5 fL ABSOLUTE NEUTROPHILS 5775 3736-2456 cells/uL ABSOLUTE LYMPHOCYTES 0356 859-0133 cells/uL ABSOLUTE MONOCYTES 429 200-950 cells/uL ABSOLUTE EOSINOPHILS 113 15-500 cells/uL ABSOLUTE BASOPHILS 16 0-200 cells/uL NEUTROPHILS 71.3 LYMPHOCYTES 21.8 MONOCYTES 5.3 EOSINOPHILS 1.4 BASOPHILS 0.2 HCG, TOTAL, QN (8396) Reviewed date:10/14/2023 02:37:20 PM Interpretation: Performing Lab:DOLLY [employer], LLCe1355 [employer] [place] [employer], Refocus ImagingVzfaWM[address] Asa Browne Notes/Report: NON-FASTING; NON-FASTING; NON-FASTING; NON-FASTING HCG, TOTAL, QN [id number] Reference Range Non or premenopausal <5 Postmenopausal <10 Values from different assay methods may vary. The use of this assay to monitor or to diagnose patients with cancer or any condition unrelated to has not been cleared or approved by the FDA or the corrections cadet of the assay. TSH W/REFLEX TO FT4 (58578) Reviewed date:10/14/2023 02:37:20 PM Interpretation: Performing Lab:DOLLY [employer] Czzu[address], [place] FrsnRD[address] Asa Browne Notes/Report: NON-FASTING; NON-FASTING; NON-FASTING; NON-FASTING TSH W/REFLEX TO FT4 1.61 Reference Range > or = 20 Years 0.40-4.50 Ranges First trimester 0.26-2.66 Second trimester 0.55-2.73 Third trimester 0.43-2.91 TSH W/REFLEX TO FT4 (16160) Reviewed date:08/27/2024 10:04:33 AM Interpretation: Performing Lab:DOLLY [employer] [address], [facility] HospitalEejjDE[address] Asa Browne Notes/Report: NON-FASTING; NON-FASTING; NON-FASTING TSH W/REFLEX TO FT4 2.75 Reference Range > or = 20 Years 0.40-4.50 Ranges First trimester 0.26-2.66 Second trimester 0.55-2.73 Third trimester 0.43-2.91 CBC (INCLUDES DIFF/PLT) (639 9) Reviewed date:08/27/2024 10:04:33 AM Interpretation: Performing Lab:DO[facility] Uqrw5795 [address]el [facility], [facility] HospitalJxueXH[address] Asa Browne Notes/Report: NON-FASTING; NON-FASTING; NON-FASTING WHITE [...] MPV 9.5 7.5-12.5 fL ABSOLUTE NEUTROPHILS 2826 9085-6975 cells/uL ABSOLUTE LYMPHOCYTES 2580 850-3900 cells/uL ABSOLUTE MONOCYTES 402 200-950 cells/uL ABSOLUTE EOSINOPHILS 162 15-500 cells/uL ABSOLUTE BASOPHILS 30 0-200 cells/uL NEUTROPHILS 47.1 LYMPHOCYTES 43.0 MONOCYTES 6.7 EOSINOPHILS 2.7 BASOPHILS 0.5 COMPREHENSIVE METABOLIC PANE L (45725) Reviewed date:08/27/2024 10:04:33 AM Interpretation: Performing Lab:CB, [employer] [facility] [address]the[address], [facility] HospitalEpesPO[address] Asa Browne Notes/Report: NON-FASTING; NON-FASTING; NON-FASTING GLUCOSE [...] 13 10-30 U/L ALT 10 6-29 U/L Medications Medication SIG (Take, Route, Frequency, Duration) Notes Start Date End Date Status Famotidine 20 MG 1 tablet Orally twic e a day; Duration: 30 days 08/24/2024 Active Levothyroxine Sodium 88 MCG 1 tab(s) ora lly once a day; Duration: 30 days Active Immunizations Vaccine Route Administration Date Status Comme nts H1N1 Vaccine IM Intramuscular 01/11/2009 Administered Fluvirin--Influenza vaccine 3+ year Unknown 11/08/2008 Administered Fluvirin--Influenza vaccine 3+ year IM Intramuscular 12/03/2009 Administered Fluvirin--Influenza vaccine 3+ year IM Intramuscular 11/13/2010 Administered Fluvirin--Influenza vaccine 3+ year IM Intramuscular 11/19/2011 Administered Flublok IM Intramuscular 01/22/2020 Administered Problems Problem Type SNOMED Code ICD Code Onset Dates Problem Status W/U Status Risk Notes Problem Gastroesophageal reflux disease (638893549) GERD without esophagitis (K21.9) Active confirmed Problem Migraine without aura, not refractory (660495914) Migraine without aura and without status migrainosus, not intractable (G43.009) Active confirmed Problem Amenorrhea (49654751) Amenorrhea (N91.2) Active confirmed Problem Non-toxic single thyroid nodule (453207181) Left thyroid nodule (E04.1) Active confirmed Problem Hypothyroidism (93434468) Unspecified hypothyroidism (E03.9) Active confirmed Problem Anxiety depression (054203295) Anxiety with depression (F41.8) Active confirmed Problem Autoimmune hypothyroidism (563413470) 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 Vital Signs Heart Rate 88 /min 08/31/2024 Temperature 97.8 degrees Fahrenheit 08/31/2024 Blood pressure diastolic 80 mm Hg 08/31/2024 Height 62 in 08/31/2024 Blood pressure systolic 125 mm Hg 08/31/2024 Weight 133 lbs 08/31/2024 BMI 24.32 kg/m2 08/31/2024 Encounters Encounter Location Date Provider Diagnosis [facility] [address] [place], [place] [address] 05/12/2024 Provider Migration [facility] [address] [facility] [address] [place], [place] [address] 10/13/2023 Roxanne Pina Amenorrhea N91.2 and Autoimmune hypothyroidism E06.3 [facility] [address] [facility] [address] [place], [place] [address] 06/14/2024 Roxanne Pina Bilateral acute otit is media H66.93 and Acute non-recurrent frontal sinusitis J01.10 [facility] [address] [place] [address] 08/24/2024 Leeanne McNees GERD without esophagitis K21.9 ; Epigastric pain R10.13 ; Autoimmune hypothyroidism E06.3 and Fatigue, unspecified type R53.[address] [facility] [address] [address] 08/31/2024 Leeanne McNees Epigastric pain R10. 13 ; GERD without esophagitis K21.9 ; Right flank pain R10.9 ; Nausea R11.0 and Chronic constipation K59.09 Assessments Encounter Date Diagnosis (ICD Code) Assessment Notes Treatment Notes Treatment Clinical Notes Section Notes 06/14/2024 Bilateral acute otitis media (ICD-10 - H66.93) Determined to have otitis media from physical examination findings above. Prescription written for antibiotic above. Return precautions discussed with family. All questions answered. 06/14/2024 Acute non-recurrent frontal sinusitis (ICD-10 - J01.10) Encouraged daily antihistamine and fluticasone routinely during this exacerbation of symptoms 08/31/2024 Epigastric pain (ICD-10 - R10.13) Unique presentation with unremarkable labs, UA and exam. May be related to GB disease, gastritis/GERD, constipation, muscle spasm or kidney stone or though less likely as UA with neg for blood. Hayes diet. Start MiraLAX daily. Abd US on Tuesday. Sooner return precautions discussed 08/31/2024 GERD without esophagitis (ICD-10 - K21.9) 10/13/2023 Amenorrhea (ICD-10 - N91.2) encouraged to start daily PNV 10/13/2023 Autoimmune hypothyroidism (ICD-10 - E06.3) 08/24/2024 Epigastric pain (ICD-10 - R10.13) Likely related to GERD/gastritis, see plan above 08/24/2024 GERD without esophagitis (ICD-10 - K21.9) Discussed etiology of reflux. Start trial of H2 ravi as stated above. Avoid certain foods that exacerbate symptoms, such as caffeine and spicy foods. RTC if no improvement. 08/31/2024 Right flank pain (ICD-10 - R10.9) 08/31/2024 Nausea (ICD-10 - R11.0) 08/24/2024 Autoimmune hypothyroidism (ICD-10 - E06.3) 08/24/2024 Fatigue, unspecified type (ICD-10 - R53.83) Labs drawn to r/o underlying pathology 08/31/2024 Chronic constipation (ICD-10 - K59.09) 08/31/2024 Other Plan Of Treatment Pending Test Test Name Order Date H-H.PYLORI ANTIGEN 11/29/2012 M-Free T4 (Free Thyroxine) 08/29/2019 M-Thyroid Stimulating Hormone 08/29/2019 G-Vqdb-Fpljuvcvhhpnt Antibody 08/28/2018 Insurance Providers Payer Name Payer Address Payer Phone Subscriber Number Group Number Insured Name Patient Relationship to Insured Coverage Start Date Coverage End Date [facility] [address] [place] [phone] [id number] Hugo Michelle Self - patient is the insured Medications Administered Medication Instructions Date of Administration Dosage Notes Dexamethasone 4mg Injection 05/28/2021 4 mg Promethazine HCL 02/15/2013 Medical (General) History Medical History History ICD Code ADD GERD Autoimmune Hypothyroidism Surgical History Surgery Date(Month/Year) wisdom teeth
== END 2024-10-02 23:59 | disposition home or self-care (01) ==
LOC: LAB 10:13
PROVIDERS: PCP Nurse Practitioner Family; Visit Provider Obstetrics & Gynecology
DX: Z34.90 Encounter for supervision of normal pregnancy, unspecified, unspecified trimester (principal); N92.6 Irregular menstruation, unspecified
CPT/HCPCS: 36415; 84144; 84702

== ENCOUNTER 2024-10-16 15:45 | Outpatient (CLI) | payer OTHER, SELFPAY ==
--- OUTSIDE RECORDS SUMMARY | 2024-10-16 15:48 | XMS_ITS | Clinical Summary ---
Author Organization [facility] Address [address] [facility] [address] [place] [address] Phone Care Team Providers Care Harvest Worker Fruit Name Role Phone Nabila Cruz Primary Care Provider Alexandra freeman Allergies Active Allergy Reactions Criticality Noted Date Comments Sulfa (Sulfonamide Antibiotics) Hives 09/07 Medications aspirin 81 mg Oral Tablet, Delayed Release (E.C.) Take 81 mg by mouth daily. 11/02/2023 Active LEVOthyroxine (SYNTHROID) 88 mcg Oral Tablet Take 1 Tablet by mouth daily. 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 Primary hypothyroidism 09/19/2020 Goiter 09/19/2020 Surgical History Surgery Date Site/Laterality Comments WISDOM TOOTH EXTRACTION Medical History Medical History Date Comments Hypothyroidism Headache Depression Anxiety Family History Medical History Relation Name Comments Anxiety Disorder Father Diabetes Father Thyroid Disease Father Anxiety Disorder Mother Dementia Paternal Grandmother High Blood Pressure Paternal Grandmother High Cholesterol Paternal Grandmother Thyroid Disease Paternal Grandmother Relation Name Status Comments Father Alive Mother Alive Paternal Grandmother Social History Tobacco Use Types Packs/Day Years Used Date Smoking Tobacco: Never Smokeless Tobacco: Never Alcohol Use Standard Drinks/Week Comments Never 0 (1 standard drink = 0.6 oz pur e alcohol) Comments Unknown Sex and Gender Information Value Date Recorded Sex Assigned at Not on file Legal Sex Female 8:58 AM EDT Gender Identity Not on file Sexual Orientation Not on file Obstetrics History Last Filed Vital Signs Vital Sign Reading Time Taken Comments Blood Pressure 116/74 05/24/2024 8:44 AM EDT Pulse 99 05/24/2024 8:44 AM EDT Temperature - - Respiratory Rate 16 05/24/2024 8:44 AM EDT Oxygen Saturation - - Inhaled Oxygen Concentration - - Weight 61.4 kg (135 lb 6.4 oz) 05/24/2024 8:44 A M EDT Height 157.5 cm (5' 2 ) 05/24/2024 8:44 AM EDT Body Mass Index 24.76 05/24/2024 8:44 AM EDT Plan of Treatment Upcoming Encounters Date Type Department Care Team (Late st Contact Info) Description 11/26/2024 1:00 PM EDT Office Visit [facility] [place] [address] [facility] [address] [place] [id number] Paramjit Kuo MD [address] [place] [address] Health Maintenance Due Date Last Done Comments Hepatitis B Vaccine (3 of 3 - 3-dose series) 06/24/1997 04/29/1997, 1996 Annual Wellness Exam 04/26/1999 Cervical Cancer Screening 2017 Pap Smear 2017 COVID-19 Vaccine ( season) 2024 Influenza Vaccine (#1) 2024 0, 11/25/2017, 11/19/2011, Additional history exists DTaP/TDaP/Td (8 - Td or Tdap) 12/10/2027 12/09/2017, 08/12/2008, 04/24/2001, Additional history exists Meningococcal B Vaccine Aged Out No l onger eligible based on patient's age to complete this topic Pneumococcal Vaccine 0-49 Aged Out No longer eligible based on patient's age to complete this topic Care Teams Harvest Worker Fruit Relationship Specialty Start Date End Date Nabila Cruz PCP - General 05/25/21
[2024-10-16 16:24] LABS: Hematocrit 36.3 % (37.0-47.0); Hemoglobin 12.9 g/dL (12.2-16.2); Immature Granulocytes % 0.2 %; Mean Corpuscular HGB Conc 35.5 g/dL (31.8-35.4); Mean Corpuscular Hemoglobin 30.2 pg (27.0-31.2); Mean Corpuscular Volume 85.0 fl (81-99); Nucleated Red Blood Cells % 0 %; Platelet Count 304 K/mm3 (142-424); Red Blood Count 4.27 M/mm3 (4.20-5.40); Red Cell Distribution Width-SD 36.8 fL; White Blood Count 8.8 K/mm3 (4.8-10.8)
[2024-10-16 17:34] LABS: Hepatitis C Ab Qual. W/ RFX NEGATIVE (Negative)
[2024-10-17 14:12] LABS: RPR W/RFX Titers Nonreactive (Nonreactive)
[2024-10-18 08:26] LABS: Hepatitis B Surface Antigen Negative (Negative)
[2024-10-18 10:17] LABS: Rubella Antibodies, IgG 1.21 index (Immune >0.99)
[2024-10-18 21:17] LABS: Neisseria gonorrhoeae, NAA Negative (Negative)
== END 2024-10-16 23:59 | disposition home or self-care (01) ==
LOC: LAB 15:46
PROVIDERS: PCP Nurse Practitioner Family; Visit Provider Obstetrics & Gynecology
DX: O99.280 Endocrine, nutritional and metabolic diseases complicating pregnancy, unspecified trimester (principal); E03.9 Hypothyroidism, unspecified; Z14.8 Genetic carrier of other disease; O09.299 Supervision of pregnancy with other poor reproductive or obstetric history, unspecified trimester; O60.10X0 Preterm labor with preterm delivery, unspecified trimester, not applicable or unspecified
CPT/HCPCS: 36415; 85025; 86592; 86762; 86803; 86850; 87086; 87340; 87389; 87491; 87591

== ENCOUNTER 2024-12-04 11:02 | Outpatient (CLI) | payer OTHER, SELFPAY ==
--- OUTSIDE RECORDS SUMMARY | 2024-05-12 17:30 | XMS_ITS ---
Author Organization [facility] Address [address] [facility] [address] [place] [address] Care Team Providers Care Computer Mechanic Name Role Phone Chago Ireland Primary Care Provider Roxanne Pina Unavailable [phone] Migration, Provider Unavailable Unavailable Allergies Allergen (clinical drug ingredient) Drug/Non Drug Allergy documented on EMR Reaction Allergy Type Onset Date Status SULFA (uncoded) rash Allergy Acti ve [facility]IT [facility] Conversion Encounter Medications Medication SIG (Take, Route, Frequency, Duration) Notes Start Date End Date Status Levothyroxine Sodium 75 MCG 1 tab(s) ora lly once a day; Duration: 30 day(s) Active Encounters Encounter Location Date Provider Diagnosis [facility] [address] [facility] [address] [place] [address] 05/12/2024 Provider Migration Plan Of Treatment No Information Progress Notes * Keyona MICHELLE NDOB:1995 (29 yo F)Acc No.[id number]:05/12/2024 Patient: Keyona SOLIMAN Provider: Kiley enciso Migration :1995 A ge:29 Y S ex:Female Date:05/12/2024 Address[place] [place], [place] Pcp:Chago Ireland Subjective: * Chief Complaints: * [facility] . [facility] * Medical History: * Medications: T aking Levothyroxine Sodium 75 MCG Tablet 1 tab(s) orally once a day * Allergies: S ULFA: rash. Objective: * Vitals: Assessment: Plan: * Treatment: * * Electronic signature of Prov ider Migration on 12/04/2024 at 11:06 AM EDT Sign off status: Pending * Provider: Kiely enciso Migration Date: 0 05/12/2024 Generated for Rita thomas/Tr/Radhasmitting on: 1 11:06 AM EDT
--- OUTSIDE RECORDS SUMMARY | 2024-10-09 10:30 | XMS_ITS ---
Author Organization [facility] Address [address] [place], [place] [address] Care Team Providers Care Homicide Investigator Name Role Phone Chago Ireland Primary Care Provider [phone] Roxanne Pina [phone] Allergies Allergen (clinical drug ingredient) Drug/Non Drug Allergy documented on EMR Reaction Allergy Type Onset Date Status SULFA (uncoded) rash Allergy Acti ve REASON FOR VISIT sinus pain Medications Medication SIG (Take, Route, Frequency, Duration) Notes Start Date End Date Status Levothyroxine Sodium 88 MCG 1 tab(s) ora lly once a day; Duration: 30 days Active Famotidine 20 MG 1 tablet Orally twic e a day; Duration: 30 days 08/24/2024 Active Problems Problem Type SNOMED Code ICD Code Onset Dates Problem Status W/U Status Risk Notes Problem Allergic rhinitis (19445226) Chronic allergic rhinitis (J30.9) Active confirmed Vital Signs Temperature 97.9 degrees Fahrenheit 10/10/19 25 Height 62 in 10/09/2024 Weight 134 lbs 10/09/2024 BMI 24.51 kg/m2 10/09/2024 Encounters Encounter Location Date Provider Diagnosis [facility] [address] [place], [place] [address] 10/09/2024 Roxanne Pina Acute rhinosinusitis J01.90 and Chronic allergic rhinitis J30.9 Assessments Encounter Date Diagnosis (ICD Code) Assessment Notes Treatment Notes Treatment Clinical Notes Section Notes 10/09/2024 Acute rhinosinusitis (ICD-10 - J01.90) recommend plain mucinex and loratadine once a day, tylenol if needed for pain, discussed importance of good fluid intake, may use saline rinses as needed as well. antibiotics if symptoms progress or persist. return precautions reviewed. 10/09/2024 Chronic allergic rhinitis (ICD-10 - J30.9) Plan Of Treatment Next Appt Details Follow Up: prn, Reason: Progress Notes * ANISAKeyona Berry NDOB:1995 (29 yo F)Acc No.[id number]:10/09/2024 Progress Notes Patient: Keyona SOLIMAN Provider: ECHO Garcia :1995 A ge:29 Y S ex:Female Date:10/09/2024 Address:[address] [place], [place] [phone] Pcp:Chago Ireland Subjective: * Chief Complaints: * 1 . Sinus pain. * HPI: E NT/respiratory: 29 yr old female presents today with c/o nasal congestion, sinus pressure, bilat ear pressure for several days. She is , early first trimester, and not sure what she can take. Has OBGYN appt scheduled in the next week or so. No fevers or productive cough, no SOA. 29 year old female presents with c/o cough. c/o nasal congestion. c/o ear pain. c/o rhinorrhea. c/o postnasal drip. c/o facial pain.? Denies : sore throat. D enies : fever. D enies : shortness of breath. D enies : wheeze. * ROS: C ONSTITUTIONAL: no L oss of appetite. n o F ever. D ERMATOLOGY: no R christina. G ASTROENTEROLOGY: no V omiting. n o D iarrhea. U ROLOGY: Reviewed, No Symptoms Reported: Y es. * Medical History: A DD, GERD, Autoimmune Hypothyroidism. * Medications: T aking Levothyroxine Sodium 88 MCG Capsule 1 tab(s) orally once a day , Taking Famotidine 20 MG Tablet 1 tablet Orally twice a day , Medication List reviewed and reconciled with the patient * Allergies: S ULFA: rash. Objective: * Vitals: N urse: nm, Pain: 0, Temp: 97.9, Ht: 62, Wt: 134, BMI:24.51. * Examination: E NT/Respiratory: General Appearance : w ell nourished and hydrated, alert.? Ears: a uditory canals normal bilaterally, tympanic membranes normal bilaterally. Nose : t urbinates red, mild congestion. Sinuses : t scarlet maxillary sinuses bilaterally. Oral Cavity n o erythema or exudate seen on pharynx, post nasal drainage. Neck : n o cervical lymphadenopathy. Heart : R RR, normal S1 S2, no murmurs. Lungs : c lear to auscultation bilaterally, no crackles or wheezes. Skin : c lear without rashes. Assessment: * Assessment: 1. A cute rhinosinusitis - J01.90 (Primary) 2 . C hronic allergic rhinitis - J30.9 Plan: * Treatment: * Follow Up: p rn * * Sign off status: Completed true * Provider: ECHO Garcia Date: 0 10/09/2024 Generated for Rita thomas/Tr/Shanna on: 11:06 AM EDT History and Physical Notes * HPI (History of Present Illness) Category Sub-Category Detail Notes Category Not es ENT/respiratory sore throat facial pain ear pain shortness of breath cough fever postnasal drip rhinorrhea nasal congestion wheeze Examination Category Sub-Category Detail Notes Category Not es ENT/Respiratory Oral Cavity no erythema or e xudate seen on pharynx, post nasal drainage Sinuses : tender maxillary sin uses bilaterally Ears: auditory canals norm al bilaterally, tympanic membranes normal bilaterally Neck : no cervical lymphade nopathy Heart : RRR, normal S1 S2, n o murmurs Lungs : clear to auscultatio n bilaterally, no crackles or wheezes General Appearance : well nourished and hydrated, alert Nose : turbinates red, mild congestion Skin : clear without rashes
--- OUTSIDE RECORDS SUMMARY | 2024-11-19 11:09 | XMS_ITS | Encounter Summary ---
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 [...] Description 06/26/2025 10:00 AM EDT Office Visit [facility] [place] [address] [facility] [address] [place] [address] Paramjit Kuo MD [address] [place] [address] documented as of this encounter Procedures Procedure [...] - 4.200 mcIU/mL 11/19/2024 5:43 PM EDT [employer] Blood VENOUS BLOOD / Unknown Venipuncture / Unknown 11/19/2024 11:26 AM EDT 11/19/2024 11:26 AM EDT Narrative [employer] - 11/19/2024 5:43 PM EDT Ingestion of dav doses of biotin (>5 mg/day) taken within 8 hours of drawing blood sample can interfere with this immunoassay test. us Paramjit Kuo MD CHEMISTRY ORDERABLES Final Re sult [employer] 1 [facility] , [place] [address] * T4, FREE (THYROXINE) (11/19/2024 11:26 AM EDT) Free T4 1.15 0.80 - 1.80 ng/dL 11/19/2024 5:43 PM EDT [employer] Blood VENOUS BLOOD / Unknown Venipuncture / Unknown 11/19/2024 11:26 AM EDT 11/19/2024 11:26 AM EDT Narrative [employer] - 11/19/2024 5:43 PM EDT Ingestion of dav doses of biotin (>5 mg/day) taken within 8 hours of drawing blood sample can interfere with this immunoassay test. Paramjit Kuo MD CHEMISTRY ORDERABLES Final Re sult Performing Organization Address [facility] Co de Phone Number [employer] 1 [facility] , [place] [address] * T3 FREE (11/19/2024 11:26 AM EDT) T3 Free 3.09 2.00 - 4.40 pg/mL 11/19/2024 5:43 PM EDT [facility] [employer] Blood VENOUS BLOOD / Unknown Venipuncture / Unknown 11/19/2024 11:26 AM EDT 11/19/2024 11:26 AM EDT Narrative [facility] [employer] - 11/19/2024 5:43 PM EDT Ingestion of dav doses of biotin (>5 mg/day) taken within 8 hours of drawing blood sample can interfere with this immunoassay test. 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
--- OUTSIDE RECORDS SUMMARY | 2024-11-26 13:00 | XMS_ITS | Encounter Summary ---
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
--- NOTE | 2024-12-04 07:30 | US_ITS ---
PROCEDURE: US OB TRANSVAGINAL CLINICAL INDICATION: cervical length COMPARISON: There are no recent ultrasounds to compare. FINDINGS: Transabdominal and transvaginal sonographic images of the pelvis were obtained. The following parameters are obtained: From her established due date she is 15weeks 1day Viable fetus in the cephalic presentation with a posterior placenta grade 1. The placenta measures 2.44 cm a wave in the internal cervical os. The cervix measures 3.80cm transvaginally. heart rate: 149bpm bpm. [place]-rump length 9.8 cm equals 15 weeks 6 days Amniotic fluid: Subjectively appears normal. IMPRESSION: 1. Viable fetus in the cephalic presentation with a posterior placenta grade 1. The placenta is well away from the internal cervical os. 2. The cervix measures 3.80 cm transvaginally. 3. The fluid is within normal limits. 4. crown-rump length is consistent with the dates. Dictated by: Curt Tovar MD 12/04/2024 14:23 Curt Tovar MD in [place] 12/04/2024 14:23
--- OUTSIDE RECORDS SUMMARY | 2024-12-04 11:07 | XMS_ITS | Encounter Summary ---
Author Organization [place] [address] Care Team Providers Care Frame And Scrap Crusher Name Role Phone Nabila Cruz Primary Care Provider Alexandra freeman Encounter Details Date Type Department Care Team (Late Contact Info) Description 11/19/2024 Results Follow-Up [facility] [address] [place] [phone] Paramjit Kuo MD [address] [place] [address] T3 FREE, T4, FREE (THYROXINE), THYROID STIMULATING HORMONE Social History Tobacco Use Types Packs/Day Years [...] on file documented as of this encounter Plan of Treatment Upcoming Encounters Date Type Department Care Team (Late Contact Info) Description 06/26/2025 10:00 AM EDT Office Visit [facility] [address] [address] Paramjit Kuo MD [address] [place] [address] documented as of this encounter Visit Diagnoses Not on filedocumented in this encounter Care Teams Frame And Scrap Crusher Relationship Specialty Start Date End Date Nabila Cruz PCP - General 05/25/21 documented as of this encounter
--- OUTSIDE RECORDS SUMMARY | 2024-12-04 11:07 | XMS_ITS | Data Portability ---
Author Organization [facility] Address [address] [place] [address] Care Team Providers Care Stonehand Name Role Phone NARINDER POOL Primary Care Provider [phone] MAUREEN ALVAREZ Induction Machine Setter Assessment No assessment recorded. Plan of Treatment Reminders Order Date Submit Date Provider Last Modified By Organization Details Last Modified Time Details Appointments None record ed. Lab None record ed. Referral None record ed. Procedures None record ed. Surgeries None record ed. Imaging XR, hand 025 02/19/19 25 brayan [facility], [address] [place] [address] [place], [address], 5 08:03:55 XR, hand 024 01/16/20 24 brayan [facility], [address] [place] [address] [place], [address], 4 11:23:25 Medication Orders None record ed. Patient TargetsNo targets recorded. Patient InstructionsNo instructions recorded. Reason for Referral None Reported. Results Created Date Observation Date Name Description Value Unit Range Abnormal Flag Note LastModifiedBy Organization Detail LastModifiedTime 01/16/20 24 XR, hand No observ ation record ed. COLETTE [address] [place], [address], 01/16/2024 08:54:33 02/19/19 25 XR, hand No observ ation record ed. COLETTE [facility] [address] [facility] , [place], [address], 02/20/2024 14:06:02 Result Notes None recorded. Procedures Surgical History Date Name Laterality Status Provider Name and Address Organization Details Recorded Time 02/07/2021 Other completed Yara LEYVA - [facility] & [place] 01/09/2024 09:08:21 02/07/2017 Other completed Yara LEYVA [facility] & [place] 01/09/2024 09:08:21 Imaging Results None recorded. Procedure Notes None recorded. Medical Equipment None Reported. Allergies No known drug allergies Medications Name Sig Start Date Stop Date Status Note LastModified by Organization Details LastModified Time ibuprofen 800 mg tablet TAKE ONE TABLET BY MOUTH EVERY 8 HOURS NEEDED FOR PAIN --TAKE WITH FOOD-- active Not Available Not Available Not Available senna 8.6 mg tablet TAKE ONE TABLET BY MOUTH TWICE DAILY NEEDED FOR constipatio n active Not Available Not Available No t Available aspirin 81 mg tablet,delay ed release TAKE 1 TABLET BY MOUTH ONCE DAILY active Not Available Not Available No t Available acetaminophe n 500 mg tablet TAKE ONE TABLET BY MOUTH EVERY 6 HOURS NEEDED FOR FEVER OR pain active Not Available Not Available No t Available levothyroxin e 75 mcg tablet TAKE 1 TABLET BY MOUTH ONCE DAILY active Not Available Not Available No t Available ibuprofen 600 mg tablet TAKE 1 TABLET BY MOUTH EVERY 6 HOURS active Not Available Not Available No t Available levothyroxin e active Not Available Not Available Not Available Vitals None Recorded Social History Question Answer Notes LastModified by Organizat ion Details LastModified Time Tobacco Smoking Status Never Smoker Yara leija, [employer] - [facility] [place] 01/09/2024 09:08:17 Do You Have An Advance Directive? No Information not available 01/09/2024 Are You Blind Or Do You Have Difficulty Seeing? No Information not available 01/09/2024 What Was The Date Of Your Most Recent Tobacco Screening? 01/09/2024 Information not available 01/09/2024 Are You Passively Exposed To Smoke? No Information not available 01/09/2024 How Much Tobacco Do You Smoke? No Information not available 01/09/2024 How Many Years Have You Smoked Tobacco? 0 Information not available 01/09/2024 Sex: Female Functional Status Question Answer Note LastModified by Organizat ion Details LastModified Time Do you use any illicit or recreational drugs? No Information not available 01/09/2024 What is your level of alcohol consumption? None Information not available 01/09/2024 Do you or have you ever used smokeless tobacco? Never used smokeless tobacco Information not available 01/09/2024 What is your exercise level? Moderate Information not available 01/09/2024 Mental Status Question Answer Note LastModified by Organization D etails LastModified Time Do you feel stressed (tense, restless, nervous, or anxious, or unable to sleep at night)? [id number] Information not available 01/09/2024 Family History Nothing Reported. Medical History Condition Response Thyroid Problems Y Acne Y Gynecological History Statement/Question Response Menses Monthly N Abnormal Pap N Current Control Method Age at Menarche 14 Flow Moderate Date of LMP 12/27/2023 Sexually Active? N Obstetrics History GPAL:G 0 P 0 0 0 0 Past Encounters Encounter ID Performer Location Encounter Start Date Encounter Closed Date Diagnosis/Indication Diagnosis SNOMED-CT Code Diagnosis ICD10 Code Diagnosis IMO Codes Diagnosis Note [id number] DO OSMAN WELLER [address] [address] 01/09/2024 08:43:42 01/09/2024 09:25:39 Closed fracture of fifth metacarpal bone of right hand 6144466342 [id number] S62.306A [id number] DO OSMAN WELLER [address] [address] 01/16/2024 08:37:18 01/16/2024 09:02:47 Closed fracture of fifth metacarpal bone of right hand [id number] S62.306D [id number] DO OSMAN WELLER [address] [address] 02/20/2024 13:52:27 02/20/2024 14:19:33 Closed fracture of fifth metacarpal bone of right hand [id number] S62.306D Health Concerns Section Related Observation LastModified by Organization Detai ls LastModified Time None Recorded Concern Status LastModified by Organization Details LastModified Time None Recorded Advance Directives Directive N: Payers Insurance Date Sequence Insurance Name Policy Number Policy Rain Covered Member ID Rain Member ID Guarantor Name 09/17/2024 [facility]ona [facility] 05/21/2024 1 [facility] ([place] REPLAC[place] [id number] [id number] 05/21/2024 [facility] Notes Date Note Type Note Provider Name and Address Organization Details Recorded Time 01/09/2024 text/html ROS as noted in the HPI Pt is here for a DOI-01/05/2024- W/C claim- Kennel door slammed on her rt hand-Works at [employer]01/05/2024 - XR hand PA/AP and LAT W/OBL rt- fith metacarpal fxShe was splinted. Minimal to no swelling. Faded bruising noted. She is not taking any pain medication-E3SF SON ZIMMER DO [address] [place] [address],[address], [place], [address], [facility] 01/09/2024 12:13:06 01/16/2024 text/html 28 y/o female here today for follow up with x-rays right fifth metacarpal shaft fracture; DOI: 01/05/2024- W/C claim- Kennel door slammed on hand. Patient is . Patient has been wearing TKO brace, working regular hours. Patient states she isn't having much pain. [email or web address] SON ZIMMER DO [address], [place], [address], [facility] 01/16/2024 12:55:26 02/20/2024 text/html Pt presents today for follow up Closed fracture of fifth metacarpal bone of right hand. DOI: 01/05/2024. Pt states she still has some soreness and stiffness and has see improvement since her last visit. Pt is wearing a rt TKO brace and states she wears it all the time except when washing her hands or showering. Pt is not taking anything for pain. We will get new x-rays today in office. [email or web address] SON MESHA, [address] [place] [address],[address], [place], [address], [place] [facility] [place] 02/22/2024 12:47:24 OBGyn Episode No OBEpisode recorded.
--- OUTSIDE RECORDS SUMMARY | 2024-12-04 11:07 | XMS_ITS | Clinical Summary ---
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); Thyroid disease in in second trimester 11/19/2024 11:09 AM EDT - 11/19/2024 11:59 PM EDT Hospital Encounter [facility] [place] [address] 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 Discharge Disposition: Home or Self Care 11/19/2024 Results Follow-Up [place] [address] [facility] [address] [place] [address] Paramjit Kuo MD T3 FREE, T4, FREE (THYROXINE), THYROID STIMULATING HORMONE from Last 3 Months Surgical History Surgery Date Site/Laterality Comments WISDOM [...] Sexual Orientation Not on file Obstetrics History Para Term AB IAB SAB Ectopic Multiple Livin g Live Births 1 Date Outcome GA Total Labor Labor/2nd/3rd Weight Sex Type Anes PTL Sharri A1 A5 Name Clin Current Last Filed Vital Signs Vital Sign Reading [...] Mass Index 25.24 11/26/2024 12:53 PM EDT Plan of Treatment Upcoming Encounters Date Type Department Care Team (Late st Contact Info) Description 06/26/2025 10:00 AM EDT Office Visit [facility] [address] [facility] [address] [place] [address] Paramjit Kuo MD [address] [place] [address] Health Maintenance Due Date Last Done Comments Hepatitis B Vaccine (3 of 3 - 3-dose series) 06/24/1997 04/29/1997, 1996 Annual Wellness Exam 04/26/1999 Cervical Cancer Screening 2017 Pap Smear 2017 COVID-19 Vaccine (2024- season) 2024 Influenza Vaccine (#1) 2024 , 11/25/2017, 11/19/2011, Additional history exists DTaP/TDaP/Td (8 - Td or Tdap) 12/10/2027 12/09/2017, 08/12/2008, 04/24/2001, Additional history exists Meningococcal B Vaccine Aged Out No l onger eligible based on patient's age to complete this topic Pneumococcal Vaccine 0-49 Aged Out No longer eligible based on patient's age to complete this topic RSV or 60+ (No Doses Required) Completed Procedures Procedure Name Priority Date/Time Associated Diagnosis Comments THYROID STIMULATING HORMONE Routine 11/19/2024 11:26 AM EDT 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 Paramjit Kuo MD CHEMISTRY ORDERABLES Final Re sult Performing Organization Address [facility] Co de Phone Number [facility] [address] [facility] , [place] [phone] * THYROID STIMULATING HORMONE (11/19/2024 11:26 AM EDT) TSH 1.620 0.270 - 4.200 mcIU/mL 11/19/2024 5:43 PM EDT PREFERRED [facility] Blood VENOUS BLOOD / Unknown Venipuncture / Unknown 11/19/2024 11:26 AM EDT 11/19/2024 11:26 AM EDT Narrative [facility] - 11/19/2024 5:43 PM EDT Ingestion of dav doses of biotin (>5 mg/day) taken within 8 hours of drawing blood sample can interfere with this immunoassay test. Paramjit Kuo MD CHEMISTRY ORDERABLES Final Re sult Performing Organization Address [facility] de Phone Number [facility] [address] [facility] , [place] [address] * T4, FREE (THYROXINE) (11/19/2024 11:26 AM EDT) Pathologist [facility] Free T4 1.15 0.80 - 1.80 ng/dL 11/19/2024 5:43 PM EDT [facility] Blood VENOUS BLOOD / Unknown Venipuncture / Unknown 11/19/2024 11:26 AM EDT 11/19/2024 11:26 AM EDT Narrative [facility] - 11/19/2024 5:43 PM EDT Ingestion of dav doses of biotin (>5 mg/day) taken within 8 hours of drawing blood sample can interfere with this immunoassay test. Paramjit Kuo MD CHEMISTRY ORDERABLES Final Re sult Performing Organization Address [facility] Co de Phone Number [facility] [address] [facility] [address] [address] from Last 3 Months Insurance [employer] Care Teams Log Washer Relationship Specialty Start Date End Date Nabila Cruz PCP - General 05/25/21
--- OUTSIDE RECORDS SUMMARY | 2024-12-04 11:07 | XMS_ITS | Patient Health Record ---
Author Organization [facility] Address [address] [place] [address] [place] [address] Care Team Providers Care Alterations Sewer Name Role Phone Chago Ireland Primary Care Provider Roxanne Pina Unavailable [phone] Leeanne Hidalgo Unavailable [phone] Migration, Provider Unavailable Unavailable Allergies Allergen (clinical drug ingredient) Drug/Non Drug Allergy documented on EMR Reaction Allergy Type Onset Date Status SULFA (uncoded) rash Allergy Acti ve Results Component Value Reference Range Notes TSH W/REFLEX TO FT4 (85618) Reviewed date:08/27/2024 10:04:33 AM Interpretation: Performing Lab:[facility] [id number] SIVIteWHMSOFT, [id number] Asa Browne Notes/Report: NON-FASTING; NON-FASTING; NON-FASTING TSH W/REFLEX TO FT4 2.75 Reference Range > or = 20 Years 0.40-4.50 Ranges First trimester 0.26-2.66 Second trimester 0.55-2.73 Third trimester 0.43-2.91 CBC (INCLUDES DIFF/PLT) (639 9) Reviewed date:08/27/2024 10:04:33 AM Interpretation: Performing Lab:[facility] [id number] SIVItel BlSoniqplay, [employer] [id number] Asa Browne Notes/Report: NON-FASTING; NON-FASTING; NON-FASTING WHITE [...] MPV 9.5 7.5-12.5 fL ABSOLUTE NEUTROPHILS 2826 9895-8447 cells/uL ABSOLUTE LYMPHOCYTES 2580 850-3900 cells/uL ABSOLUTE MONOCYTES 402 200-950 cells/uL ABSOLUTE EOSINOPHILS 162 15-500 cells/uL ABSOLUTE BASOPHILS 30 0-200 cells/uL NEUTROPHILS 47.1 LYMPHOCYTES 43.0 MONOCYTES 6.7 EOSINOPHILS 2.7 BASOPHILS 0.5 [address]IVE METABOLIC PANE L (51676) Reviewed date:08/27/2024 10:04:33 AM Interpretation: Performing Lab:[facility], [facility] [address] [facility] [id number] Asa Browne Notes/Report: NON-FASTING; NON-FASTING; NON-FASTING GLUCOSE [...] 13 10-30 U/L ALT 10 6-29 U/L Urinalysis Reviewed date:09/03/2024 09:10:37 AM Interpretation: Performing Lab: Notes/Report: Color/Clarity yellow Leuk neg Nitrite neg Urobili 0.2 Protein neg pH 6.0 Blood neg Sp. Gr. 1.010 Ketone neg Bili neg Glucose neg US ABD Reviewed date:09/04/2024 09:10:51 AM Interpretation: Performing Lab: Notes/Report: [address] [place] [address] Name: HUGO MICHELLE Exam Date: 09/03/2024 : 1995 Age 29 years Gender: F Physician: LEEANNE PHILIP Facility: [facility] Facility HSV: Outpatient Exam: US ABD Ultrasound [...] Tashia Casiano MD 09/03/2024 11:27 AM EDT Dictated By: TASHIA CASIANO Transcribed By: Transcribed On: 09/03/2024 10:51 AM Electronically signed by: TASHIA CASIANO 09/03/2024 Thank you for referring HUGO MICHELLE to [facility]. Legally authenticated by [place] LAO MD 2024-09-03 10:51:08 Medications Medication SIG (Take, Route, Frequency, Duration) Notes Start Date End Date Status Levothyroxine Sodium 88 MCG 1 tab(s) ora lly once a day; Duration: 30 days Active Famotidine 20 MG 1 tablet Orally twic e a day; Duration: 30 days 08/24/2024 Active Immunizations Vaccine Route Administration Date Status [...] Status Risk Notes Problem Gastroesophageal reflux disease (906022120) GERD without esophagitis (K21.9) Active confirmed Problem Allergic rhinitis (06913213) Chronic allergic rhinitis (J30.9) Active confirmed Problem Migraine without aura, not refractory (723583217) Migraine without aura and without status migrainosus, not intractable (G43.009) Active confirmed Problem Amenorrhea (87563894) Amenorrhea (N91.2) Active confirmed Problem Non-toxic single thyroid nodule (660187452) Left thyroid nodule (E04.1) Active confirmed Problem Hypothyroidism (85215666) Unspecified hypothyroidism (E03.9) Active confirmed Problem Anxiety depression (745436183) Anxiety with depression (F41.8) Active confirmed Problem Autoimmune hypothyroidism (175558576) 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 Vital Signs Heart Rate 88 /min 08/31/2024 Temperature 97.9 degrees Fahrenheit 10/09/2024 Blood pressure diastolic 80 mm Hg 08/31/2024 Height 62 in 10/09/2024 Blood pressure systolic 125 mm Hg 08/31/2024 Weight 134 lbs 10/09/2024 BMI 24.51 kg/m2 10/09/2024 Encounters Encounter Location Date Provider Diagnosis Paulie PALACIO [address] [facility] [address] [place] [address] 05/12/2024 Provider Migration Paulie PALACIO [address] [facility] [address] [place] [address] 06/14/2024 Roxanne Pina Bilateral acute otit is media H66.93 and Acute non-recurrent frontal sinusitis J01.10 [facility] [address] [address] 08/24/2024 Leeanne McNees GERD without esophagitis K21.9 ; Epigastric pain R10.13 ; Autoimmune hypothyroidism E06.3 and Fatigue, unspecified type R53.83 Paulie Ferris [facility] [address] [address] 08/31/2024 Leeanne McNees Epigastric pain R10. 13 ; GERD without esophagitis K21.9 ; Right flank pain R10.9 ; Nausea R11.0 and Chronic constipation K59.09 [address]ie [address] [place] [address] [place] [address] 10/09/2024 Roxanne Pina Acute rhinosinusitis J01.90 and [...] fluticasone routinely during this exacerbation of symptoms 08/24/2024 Epigastric pain (ICD-10 - R10.13) Likely related to GERD/gastritis, see plan above 08/24/2024 GERD without esophagitis (ICD-10 - K21.9) Discussed etiology of reflux. Start trial of H2 ravi as stated above. Avoid certain foods that exacerbate symptoms, such as caffeine and spicy foods. RTC if no improvement. 08/31/2024 Epigastric pain (ICD-10 - R10.13) Unique presentation with unremarkable labs, UA and exam. May be related to GB disease, gastritis/GERD, constipation, muscle spasm or kidney stone or though less likely as UA with neg for blood. Borden diet. Start MiraLAX daily. Abd US on Tuesday. Sooner return precautions discussed 10/09/2024 Chronic allergic rhinitis (ICD-10 - J30.9) 10/09/2024 Acute rhinosinusitis (ICD-10 - J01.90) recommend plain mucinex and loratadine once a day, tylenol if needed for pain, discussed importance of good fluid intake, may use saline rinses as needed as well. antibiotics if symptoms progress or persist. return precautions reviewed. 08/31/2024 GERD without esophagitis (ICD-10 - K21.9) 08/31/2024 Right flank pain (ICD-10 - R10.9) 08/31/2024 Nausea (ICD-10 - R11.0) 08/24/2024 Autoimmune hypothyroidism (ICD-10 - E06.3) 08/31/2024 Chronic constipation (ICD-10 - K59.09) 08/24/2024 Fatigue, unspecified type (ICD-10 - R53.83) Labs drawn to r/o underlying pathology 08/31/2024 Other Plan Of Treatment Pending Test Test Name Order Date H-H.PYLORI ANTIGEN 11/29/2012 M-Free T4 (Free Thyroxine) 08/29/2019 M-Thyroid Stimulating Hormone 08/29/2019 X-Roeq-Wcnoczlndgkli Antibody 08/28/2018 Insurance Providers Payer Name Payer Address Payer Phone Subscriber Number Group Number Insured Name Patient Relationship to Insured Coverage Start Date Coverage End Date [facility] [address] [place] [address] [id number] Hugo Michelle Self - patient is the insured Medications Administered Medication Instructions Date of Administration Dosage Notes Dexamethasone 4mg Injection 05/28/2021 4 mg Promethazine HCL 02/15/2013 Medical (General) History Medical History History ICD Code ADD GERD Autoimmune Hypothyroidism Surgical History Surgery Date(Month/Year) wisdom teeth
--- OUTSIDE RECORDS SUMMARY | 2024-12-04 11:07 | XMS_ITS | Data Portability ---
Author Organization Formerly [facility] Address Hua Freitas [place] [address] Assessment Encounter Date Assessment Date Assessment LastModified by Organization Details LastModified Time 04/07/2021 04/07/2021 -Medications were reviewed and any necessary updates and renewals were made, patient instructed to complete as prescribed. -The potential side effects of medications were discussed. -Counseling was done on care goals and ways to prevent future hospitalization s. -Further treatment per orders listed below. [email or web address] Not available 04/07/2021 14:58:20 03/03/2023 03/03/2023 Reproductive life plan discussed. Patient does plan to have children in the future. control offered. Patient declined. Domestic abuse counseling done. Fliers for domestic abuse centers posted in patient waiting rooms and bathrooms. [email or web address] Not available 03/03/2023 17:23:54 Plan of Treatment Reminders Order Date Submit Date Provider Last Modified By Organization Details Last Modified Time Details Appointments None recorded. Lab bacterial vaginosis + vaginitis panel, vaginal 2020 021 COLE[facility]E [facility], [address], [address], [place], [address], 10:37:35 bacterial vaginosis + vaginitis panel, vaginal 2020 021 [place] [facility], [address], [address], [place], [address], 22:06:59 Referral None recorded. Procedures None recorded. Surgeries None recorded. Imaging None recorded. Medication Orders ibuprofen 600 mg tablet 2023 024 COLETTE [facility] [place], [address], 4 14:11:38 folic acid 800 mcg tablet [address] [place], [address], 4 13:41:19 28 mg iron-800 mcg tablet [address] [facility] [address] [place], [address], 4 13:41:29 Balcoltra 0.1 mg-0.02 mg (21)/iron (7) tablet 2020 021 [email or web address] [id number] [facility] [place], [address], 14:55:57 Patient TargetsNo targets recorded. Patient Instructions Encounter Date Encounter Id Patient Instructions Last Modified By Organization Details Last Modified Time 04/28/2020 [id number] May use ibuprofe n as needed for cramping. Keep follow up appt with Nyasia MARTE. If you have any questions or concerns call pp. lesvia Not available 04/28/2020 11:19:53 Has annual [employer] exam W/ Nyasia MARTE ON 05/08. 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 Bina ALVARENGA Not available 03/09/2023 22:04:55 See HPI Encourag e ibuprofen as discussed F/u if s/s not improved or prn additional concerns [email or web address] Not available 03/03/2023 17:24:25 Treatment option s for heavy menstrual bleeding and painful cycles discussed including regular dosed NSAIDS, initiating hormonal therapy, inserting a progestin releasing IUD, minor surgery (D&C, endometrial ablation) and major surgery (hysterectomy). Risks, benefits, and alternatives to all therapies discussed. She chooses NSAIDs. [email or web address] Not available 03/03/2023 17:24:44 Reason for Referral None Reported. Results Created Date Observation Date Name Description Value Unit Range Abnormal Flag Note LastModifiedBy Organization Detail LastModifiedTime 05/07/19 21 05/08/2020 bacte rial vagin osis + vagin itis panel , vagin al atopobium vaginae High - 2 score abnormal Not Available [facility] ([facility]) [address] [place], [address], 05/08/2020 22:06:58 05/07/19 21 05/08/2020 bacte rial vagin osis + vagin itis panel , vagin al bvab 2 High - 2 score abnormal Not Available [facility] ([facility]) [address] [facility], [place], [address], 05/08/2020 22:06:58 05/07/19 21 05/08/2020 bacte rial vagin osis + vagin itis panel , vagin al megasphaera 1 High - 2 score abnormal Calcu late total score by camelia tran the 3 indiv idual bacte rial vagin osis (BV) marke r score s toget her. Total score is inter prete d as follo ws: Total score 0-1: Indic ates the absen ce of BV. Total score 2: Indet ermin ate for BV. Addit ional clini nesha data shoul d be evalu ated to estab boris a diagn osis. Total score 3-6: Indic ates the prese nce of BV. This test was devel oped and its perfo rmanc e david cteri stics deter mined by [facility]. It has not been clear ed or appro ladonna by the Food and Drug Admin istra tion. Not Available [facility] ([facility]) [address] [place], [address], 05/08/2020 22:06:58 05/07/19 21 05/08/2020 bacte rial vagin osis + vagin itis panel , vagin al carolyn albicans, DELORES Negati ve negati ve Not Available [facility] ([facility]) [address] [place], [address], 05/08/2020 22:06:58 05/07/19 21 05/08/2020 bacte rial vagin osis + vagin itis panel , vagin al carolyn glabrata, DELORES Negati ve negati ve Not Available [facility] ([facility]) [address] [place], [address], 05/08/2020 22:06:58 05/07/19 21 05/08/2020 bacte rial vagin osis + vagin itis panel , vagin al trich vag by DELORES Negati ve negati ve Not Available [facility] ([facility]) [address] [place], [address], 05/08/2020 22:06:58 05/07/19 21 05/08/2020 bacte rial vagin osis + vagin itis panel , vagin al chlamydia trachomatis, DELORES Positi ve negati ve abnormal Not Available [facility] ([facility]) [address] [place], [address], 05/08/2020 22:06:58 05/07/19 21 05/08/2020 bacte rial vagin osis + vagin itis panel , vagin al neisseria gonorrhoeae, DELORES Negati ve negati ve Not Available [facility] ([facility]) [address] [place], [address], 05/08/2020 22:06:58 06/24/19 21 06/25/2020 bacte rial vagin osis + vagin itis panel , vagin al atopobium vaginae High - 2 score abnormal Not Available [facility] ([facility]) [address] [facility], [place], [address], 06/26/2020 10:37:35 06/24/19 21 06/25/2020 bacte rial vagin osis + vagin itis panel , vagin al bvab 2 Low - 0 score Not Available [facility] ([facility]) [address] [facility], [place], [address], 06/26/2020 10:37:35 06/24/19 21 06/25/2020 bacte rial vagin osis + vagin itis panel , vagin al megasphaera 1 Low - 0 score Calcu late total score by camelia tran the 3 indiv idual bacte rial vagin osis (BV) marke r score s toget her. Total score is inter prete d as follo ws: Total score 0-1: Indic ates the absen ce of BV. Total score 2: Indet ermin ate for BV. Addit ional clini nesha data shoul d be evalu ated to estab boris a diagn osis. Total score 3-6: Indic ates the prese nce of BV. This test was devel oped and its perfo rmanc e david cteri stics deter mined by [facility]. It has not been clear ed or appro ladonna by the Food and Drug Admin istra tion. Not Available [facility] ([facility]) [address] [facility], [place], [address], 06/26/2020 10:37:35 06/24/19 21 06/26/2020 bacte rial vagin osis + vagin itis panel , vagin al carolyn albicans, DELORES Positi ve negati ve abnormal Not Available [facility] ([facility]) [address] [facility], [place], [address], 06/26/2020 10:37:35 06/24/19 21 06/26/2020 bacte rial vagin osis + vagin itis panel , vagin al carolyn glabrata, DELORES Negati ve negati ve Not Available [facility] ([facility]) [address] [facility], [place], [address], 06/26/2020 10:37:35 06/24/19 21 06/26/2020 bacte rial vagin osis + vagin itis panel , vagin al trich vag by DELORES Negati ve negati ve Not Available [facility] ([facility]) [address] [facility], [place], [address], 06/26/2020 10:37:35 06/24/19 21 06/26/2020 bacte rial vagin osis + vagin itis panel , vagin al chlamydia trachomatis, DELORES Negati ve negati ve Not Available [facility] ([facility]) [address] [facility], [place], [address], 06/26/2020 10:37:35 06/24/19 21 06/26/2020 bacte rial vagin osis + vagin itis panel , vagin al neisseria gonorrhoeae, DELORES Negati ve negati ve Not Available [facility] ([facility]) [address] [facility], [place], [address], 06/26/2020 10:37:35 04/08/19 22 03/24/2021 medic al recor d reque st* No observ ation record ed. [facility] (Med Record) [address], [place], [address], 04/07/2021 16:28:44 Result Notes None recorded. Problems Name Problem SNOMED Code Status Onset Date Resolution Date Notes Provider Name and Address Organization Details Recorded Time Antenata l screenin g Completed [x] Quad Screen negative US 09/30 nl/compl ete MALE posterio r placenta Infusion Nurse [facility] [address], [place], [address] , [facility] - [facility] 8 15:09:56 Pregnanc y [id number] Completed 201701/18/2018 Infusion Nurse [facility] [address], [place], [address] , [place] - [facility] 8 15:10:08 Active or passive immuniza tion Completed 201703/29/2019 Tdap @ 30 wks ___ FLu vaccine - 11/25/17 Nyadot Hale null, [place] - [facility] 0 13:16:07 Active or passive immuniza tion Completed 2017 Tdap @ 30 wks ___ FLu vaccine - 11/25/17 Infusion Nurse [facility] [address], [place], [address] , [place] - [facility] 8 15:09:57 Late entry into care [id number] Completed 2017 16 weeks due to inabilit y to get insuranc e until then Infusion Nurse [facility] [address], [place], [address] , [place] - [facility] 8 15:09:57 Late entry into care [id number] Completed 201701/18/2018 16 weeks due to inabilit y to get insuranc e until then Infusion Nurse [facility] [address], [place], [address] , [place] - [facility] 8 15:10:34 Normal pregnanc y 31980983 Completed 201701/18/2018 Infusion Nurse [facility] [address], [place], [address] , [place] - [facility] 8 15:10:37 Postpart unm cancer center 16806219 Completed 201703/29/2019 Nya Hale null, [place] - [facility] 0 13:16:02 Hyperten sive disorder 78881654 Completed 201703/29/2019 Nya Hale null, [place] - [facility] 0 13:16:05 Cyst of left ovary [id number] 774102 Completed 202003/03/2023 Alexandra Ann, [employer] [address], [place], [address] , [place] - [facility] 4 17:24:03 Chlamydi al infectio n [id number] Completed 202006/20/2020 Nya Hale null, [place] - [facility] 12:27:37 History of chlamydi al infectio n 668723047 Completed 202003/03/2023 Denia Jarvis null, [place] - [facility] 4 13:41:41 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 Procedures Surgical History Date Name Laterality Status Provider Name and Address Organization Details Recorded Time 04/25/19 Diagnostic Laparoscopy completed Alexandra Ann APRN [address], [place], [address], [place] - [facility] 03/09/2023 22:03:40 04/08/19 22 Medication Reconcilliation completed Nya Hale [place] - [facility] 04/07/2021 14:58:20 09/10/19 Date of Last Pap Smear completed Alexandra Ann APRN [address], [place], [address], [place] - [facility] 03/09/2023 22:05:12 04/29/19 21 Diastolic B/P 80-89 mm Hg completed Heather Carbajal [place] - [facility] 04/28/2020 11:06:46 04/29/19 21 Systolic B/P 130-139 mm Hg completed Heather Carbajal [place] - [facility] 04/28/2020 11:06:43 10/01/19 18 OB Ultrasound Summary completed Carlos Santoro [place] - [facility] 09/30/2017 13:56:57 09/09/19 OB Ultrasound Summary completed Carlos Santoro [place] - [facility] 09/08/2017 10:44:17 Unlisted px dentalvlr strux completed Deloris Hanks [place] - [facility] 09/08/2017 09:47:33 Imaging Results None recorded. Procedure Notes None recorded. Medical Equipment None Reported. Allergies Allergen ID Allergen Name Allergen Category Reaction Reaction Severity Criticality Documentation Date Start Date Code Code System Note Provider Name and Address Organization Details Recorded Time 81996 Substance with sulfonami de structure and antibacte rial mechanism of action (substanc e) medicatio n Not available Not available Not available 11/14/20152012 37280 8003 SNOMED Not Available [facility] 6 08:11:33 Medications Name Sig Start Date Stop Date Status Note LastModified by Organization Details LastModified Time Prenatabs Rx 29 mg iron-1 mg tablet 04/07 completed Not Available Not Available Not Available fluconazole 150 mg tablet TAKE 1 TABLET BY MOUTH TODAY THEN TAKE 1 TABLET IN 3 DAYS THEN TAKE 1 TABLET IN 6 DAYS 04/07 completed Not Available Not Available Not Available metronidazo le 0.75 % (37.5 mg/5 gram) vaginal gel INSERT 1 APPLICATO RFUL VAGINALLY ONCE DAILY FOR 5 DAYS 06/23 completed Not Available Not Available Not Available ondansetron HCl 4 mg tablet TAKE 1 TABLET BY MOUTH THREE TIMES DAILY FOR NAUSEA 04/07 completed Not Available Not Available Not Available prednisone 20 mg tablet TAKE 3 TABLETS BY MOUTH ONCE DAILY FOR 2 DAYS THEN 2 TABLETS ONCE DAILY FOR 2 DAYS THEN 1 TABLET ONCE DAILY FOR 2 DAYS 04/28 completed Not Available Not Available Not Available metronidazo le 500 mg tablet TAKE 1 TABLET BY MOUTH TWICE DAILY FOR 7 DAYS 04/07 completed Not Available Not Available Not Available levothyroxi ne 75 mcg tablet TAKE 1 TABLET BY MOUTH ONCE DAILY active Not Available Not Available No t Available Vitamin tablet Take 1 tablet every day by oral route as directed for 30 days. 03/29 completed Not Available Not Available Not Available Euthyrox 25 mcg tablet TAKE 1 TABLET BY MOUTH ONCE DAILY 04/07 completed Not Available Not Available Not Available amoxicillin 875 mg tablet TAKE 1 TABLET BY MOUTH TWICE DAILY FOR 7 DAYS 04/07 completed Not Available Not Available Not Available oseltamivir 75 mg capsule 04/07 completed Not Available Not Available Not Available promethazin e 25 mg tablet TAKE 1 TABLET BY MOUTH EVERY 6 HOURS NEEDED 03/03 completed Not Available Not Available Not Available ibuprofen 600 mg tablet TAKE 1 TABLET BY MOUTH EVERY 6 HOURS active Not Available Not Available No t Available folic acid 800 mcg tablet Take 1 tablet every day by oral route. 03/03 completed Not Available Not Available Not Available oxycodone 5 mg tablet TAKE ONE TABLET BY MOUTH EVERY 6 HOURS NEEDED FOR PAIN MAY CAUSE DROWSINES S 03/03 completed Not Available Not Available Not Available Ortho Micronor 0.35 mg tablet Take 1 tablet every day by oral route as directed for 28 days. 03/29 completed Not Available Not Available Not Available azithromyci n 500 mg tablet TAKE 2 TABLETS BY MOUTH A ONE TIME DOSE 06/23 completed Not Available Not Available Not Available levothyroxi ne 50 mcg capsule 04/07 completed Not Available Not Available Not Available 28 mg iron-800 mcg tablet Take 1 tablet every day by oral route. 03/03 completed Not Available Not Available Not Available Xulane 150 mcg-35 mcg/24 hr transdermal patch APPLY 1 PATCH TOPICALLY ONCE A WEEK 04/28 completed Not Available Not Available Not Available Balcoltra 0.1 mg-0.02 mg (21)/iron (7) tablet Take 1 tablet every day by oral route. 04/07 completed Not Available Not Available Not Available Vitals Date Recorded Body height Body mass index (BMI) Body weight Pain severity - 0-10 verbal numeric rating [Score] - Reported Systolic And Diastolic Provider Name and Address Organization Details Last Updated DateTime 03/03/2023 157.48 cm 25.8 kg/m2 10359.24 g 0 114/64 mm[Hg] Denia Jarvis [place] - [facility] 4 13:49:54 Date Recorded Body height Body mass index (BMI) Body weight Provider Name and Address Organization Details Last Updated DateTime 04/07/2021 157.48 cm 24.9 kg/m2 12654.56 g Nya Hale [place] - [facility] 04/07/2021 14:55:06 Date Recorded Body height Body mass index (BMI) Body weight Heart rate Oxygen saturation Oxygen saturation in Arterial blood by Pulse oximetry Respiratory rate Pain severity - 0-10 verbal numeric rating [Score] - Reported Systolic And Diastolic Provider Name and Address Organization Details Last Updated DateTime 157.48 cm 24.2 kg/m2 94913.5 9 g 101 /min 98 % 98 % 18 /min 3 130/82 mm[Hg] Heather Carbajal [place] - [facility] 11:03:21 Date Recorded Body height Body mass index (BMI) Body weight Systolic And Diastolic Provider Name and Address Organization Details Last Updated DateTime 05/06/2020 157.48 cm 24.1 kg/m2 29276.19 g 113/71 mm[Hg] Nya Hale [place] - [facility] 05/06/2020 09:58:01 Date Recorded Body height Body mass index (BMI) Body weight Systolic And Diastolic Provider Name and Address Organization Details Last Updated DateTime 06/23/2020 157.48 cm 24.5 kg/m2 17697.38 g 100/60 mm[Hg] Nyadot Hale [facility] 06/23/2020 15:47:58 Social History Question Answer Notes LastModified by Organization Details LastModified Time Tobacco Smoking Status Never Smoker Deloris leija [place] - [facility] 09/08/2017 09:43:53 Do You Have An Advance Directive? No Information not available 09/08/2017 If You Are , What Was Your Level Of Alcohol Consumption Prior To ? None Information not available 09/08/2017 Plan No Information not available 09/08/2017 Are You Blind Or Do You Have Difficulty Seeing? No Information not available 09/08/2017 Is Blood Transfusion Acceptable In An Emergency? Yes Information not available 09/08/2017 Breast Feeding? No Informati on not available 09/08/2017 What Is Your Level Of Caffeine Consumption? Occasional Information not available 09/08/2017 Live With Cats/exposure To Cat Litter Yes Outside Cat Information not available 09/08/2017 How Much Tobacco Do You Chew? None Information not available 09/08/2017 Are You Deaf Or Do You Have Serious Difficulty Hearing? No Information not available 09/08/2017 Diabetes No Information not available 09/08/2017 What Type Of Diet Are You Following? REGULAR Information not available 09/08/2017 Which Illicit Or Recreational Drugs Have You Used? Denies Information not available 09/08/2017 Education 12 Attending College Information not available 09/08/2017 What Is The Highest Grade Or Level Of School You Have Completed Or The Highest Degree You Have Received? [id number] [email or web address] Information not available 03/29/2019 How Many Days Of Moderate To Strenuous Exercise, Like A Brisk Walk, Did You Do In The Last 7 Days? 1 [email or web address] Information not available 03/29/2019 On Those Days That You Engage In Moderate To Strenuous Exercise, How Many Minutes, On Average, Do You Exercise? 1 Information not available 03/29/2019 How Hard Is It For You To Pay For The Very Basics Like Food, Housing, Medical Care, And Heating? 1 Information not available 03/29/2019 Frequent Air Travel No Information not available 09/08/2017 High Blood Pressure No Information not available 09/08/2017 High Cholesterol No Informat ion not available 09/08/2017 High Number Of Sexual Partners No Information not available 09/08/2017 Illicit Drugs Pre- Denies Information not available 09/08/2017 Live Alone Or With Others? With Others Information not available 09/08/2017 Last Menstrual Period? 02/28/2023 [email or web address] Information not available 03/03/2023 Marital Status Informatio n not available 09/08/2017 What Was The Date Of Your Most Recent Tobacco Screening? 03/03/2023 [email or web address] Information not available 03/03/2023 How Many Children Do You Have? 1 Information not available 03/29/2019 Performs Monthly Self-breast Exam? No [email or web address] Information not available 03/29/2019 Do You Have Any Pets? Yes Information not available 09/08/2017 Do You Use Protection During Sex? No [email or web address] Information not available 05/06/2020 What Is Your Relationship Status? Single [email or web address] Information not available 03/03/2023 Seat Belts Used Routinely Yes Information not available 09/08/2017 Are You Sexually Active? No Not Currently [email or web address] Information not available 03/03/2023 Do You Have Smoke And Carbon Monoxide Detectors In Your Home? Yes Smoke Detectors No CO Detectors-n o Gas In The Home Information not available 09/08/2017 Are You Passively Exposed To Smoke? No Information not available 09/08/2017 How Much Tobacco Do You Smoke? No [email or web address] Information not available 03/29/2019 Smoking Pre- No Information not available 09/08/2017 General Stress Level Low [email or web address] Information not available 03/29/2019 Do You Use Sunscreen Routinely? No Information not available 09/08/2017 Has Tobacco Cessation Counseling Been Provided? No [email or web address] Information not available 03/03/2023 How Many Years Have You Smoked Tobacco? 0 [email or web address] Information not available 03/29/2019 Do You Have Difficulty Walking Or Climbing Stairs? No Information not available 09/08/2017 Do You Have Symptoms Associated With Zika Virus (fever, Rash, Joint Pain, Or Conjunctivitis)? No Information not available 09/08/2017 Have You Recently (within The Last 12 Weeks, Or During A Current ) Traveled To Or Lived In A Zika-affected Area? No Information not available 09/08/2017 What Contraceptive Method Was Reported At Start Of This Visit? None [email or web address] Information not available 03/03/2023 What Contraceptive Method Was Reported At End Of This Visit? None [email or web address] Information not available 03/03/2023 Do You Want To Talk About Contraception Or Prevention During Your Visit Today? No - I Am Already Using Contraception [email or web address] Information not available 03/03/2023 Do You Have Any Future Plans To Get ? No, I Don't Want To Become [email or web address] Information not available 03/03/2023 Sex: Female Functional Status Question Answer Note LastModified by Organizat ion Details LastModified Time Do you or have you ever used smokeless tobacco? Never used smokeless tobacco [email or web address] Information not available 03/29/2019 Are you currently employed? Yes Information not available 09/08/2017 Urinary incontinence assessment performed? Yes [email or web address] Information not available 03/29/2019 Are you able to care for yourself independently? Yes Information not available 03/03/2023 Do you have difficulty dressing, bathing, grooming, or toileting? No Information not available 09/08/2017 Do you or have you ever used e-cigarettes or vape? Never used electronic cigarettes [email or web address] Information not available 03/29/2019 What is your exercise level? Occasional Information not available 09/08/2017 Do you use any illicit or recreational drugs? No Information not available 03/03/2023 Do you or have you ever used any other forms of tobacco or nicotine? No [email or web address] Information not available 04/07/2021 What is your level of alcohol consumption? None Information not available 09/08/2017 Are you able to walk independently without assistance or assistive devices? YESWOREST [email or web address] Information not available 03/29/2019 Do you have difficulty doing errands alone? No Information not available 09/08/2017 What is your occupation? [employer] Information not available 09/08/2017 Mental Status Question Answer Note LastModified by Organization D etails LastModified Time Do you feel stressed (tense, restless, nervous, or anxious, or unable to sleep at night)? 1 [email or web address] Information not available 03/29/2019 Do you have difficulty concentrating, remembering or making decisions? No Information no t available 09/08/2017 Family History Relationship Description Onset Age of this Age Resolved Age Notes LastModified by Organization Details LastModified Time Paternal Uncle Diabetes mellitus [email or web address] Not available 03/29 13:17:19 Paternal Uncle Disorder of thyroid gland [email or web address] Not available 2023 13:45:16 Father Disorder of thyroid gland Not available 2023 13:45:16 Paternal Aunt Disorder of thyroid gland [email or web address] Not available 2023 13:45:16 Maternal Grandfather Malignant neoplasm of lung [email or web address] Not available 2023 13:45:32 Medical History Condition Response Pancreatitis N Other N Atrial Fibrillation N congenital heart disease N Blood Diseases N Hyperthyroidism N Rheumatoid arthritis N Blood Transfusion N Erectile Dysfunction N amputation N Skin Lesions N Depression N Pneumonia N Incontinence N Murmur N Edema N Alzheimer's Disease N Migraine Headaches N Tobacco Abuse N Anxiety Disorder N Hemorrhoids N Obesity N Vision or Eye Problems N Restless Leg Syndrome N Arthritis N Polyps N Infertility N Carpal Tunnel N Acid Reflux (GERD) N Cancer N Varicosities N Stroke N Tendonitis N Crohn's Disease N Hypercholesterolemia N Skin Cancer N Headaches N Fibromyalgia N Irritable Bowel Syndrome N Anal Fissure N Kidney Disease N Heart Problems N Hospitalizations Y Gallstones N Kidney or Bladder Problems N Goiter N Acne N Eating Disorder N Mario's Esophagus N Hypertriglyceridemia N Constipation N Embolism N Vitamin B12 Deficiency N Deviated Septum N AIDS/HIV N Myocardial Infarction N Asthma N Mitral Valve Disorders N Vertigo N Hepatitis N Thyroid Cancer N Neuropathy N History of DVT N Herniated Disc N Chicken Pox N Von Willebrands Disease N Thrombophilias N Breast Cancer N Hernia N Plantar Fasciitis N Hypothyroidism N Lung Disease N Defects or Inherited Disease N Breast Problem N Ovarian Cyst N Anesthesia Complications N Testosterone Deficiency N Interstitial Cystitis N Congenital Anomalies N Hypoglycemia N Blood clot N Vitamin D Deficiency N Cellulitis N Endometriosis N Bladder or Kidney Problems N Fracture N Colorectal Cancer N Schizophrenia N Panic Disorder N Concussion N Spina Bifida N Osteoarthritis N Parkinson's Disease N Disc Protrusion N STI N Esophagitis N Angina N Thyroid Problems N GI Problems N ADD/ADHD N Anemia N Multiple Sclerosis N Abnormal PAP N Lumbago N Mental Illness N Psychiatric Illness N Ovarian Cancer N Diabetes N Degenerative Disc Disease N Seizures/Epilepsy N Syncope N Hyperlipidemia N Insomnia N Eczema N Abuse/Domestic Violence N Attention Deficient Disorder N Dementia N Ulcerative colitis N Cerebrovascular Disease N Depression N Guillain-Jessup N Sleep Apnea N Aneurysm N Bronchitis N Heart Disease N Suicidal Ideation N Pre-Eclampsia N Hypertension N Osteoporosis N Gynecological History Statement/Question Response Abnormal Pap N Date of Last Mammogram Flow Moderate Date of LMP 02/28/2023 STIs/STDs Y HPV Vaccine N Duration of Flow (days) Current Control Method None Age at Menarche 14 Age at First Child 22 Last Annual Exam/Provider 03/29/19 w/ [place] Date of Last Colonoscopy Frequency of Cycle (Q days) 28 Most Recent Bone Density Sexually Active? N Date of Last Cervical Culture 06/23/2020 Menses Monthly Y Date of Last Pap Smear 09/09/2020 Sexual Problems? N LMP Definite Desired Control Method None Obstetrics History GPAL:G 1 P 0 1 0 1 Type Value Premature 1 Living 1 Total 1 Immunizations Vaccine Type Date Status Note Provider Name and Address Organization Details Recorded Time Influenza, split virus, quadrivalent, PF 03/29/19 20 cancelled patient objection Miriam Bearden, [employer] [address], [place], [address], [place] [facility] 03/29/2019 14:25:28 Influenza, split virus, quadrivalent, preservative 11/26/19 18 completed Not Available [facility] 02/24/2019 03:55:22 Tdap 12/10/19 18 completed Not Available [facility] 02/24/2019 03:55:25 Hib, unspecified formulation 08/27/18 97 completed Denia Jarvis null, [place] [facility] 03/03/2023 13:41:06 IPV 04/25/19 02 completed [place] [facility] 03/03/2023 13:41:06 MMR 04/25/19 02 completed [place] [facility] 03/03/2023 13:41:06 Tdap 08/13/19 09 completed [place] [facility] 03/03/2023 13:41:07 DTP 08/27/18 97 completed [place] [facility] 03/03/2023 13:41:07 OPV, trivalent 04/29/18 98 completed [place] [facility] 03/03/2023 13:41:07 OPV, trivalent 06/26/18 97 completed [place] [facility] 03/03/2023 13:41:07 OPV, trivalent 08/27/18 97 completed [place] [facility] 03/03/2023 13:41:07 DTP-Hib 04/29/18 98 completed [place] [facility] 03/03/2023 13:41:07 DTP-Hib 06/26/18 97 completed [place] [facility] 03/03/2023 13:41:07 DTP-Hib 11/19/18 97 completed [place] [facility] 03/03/2023 13:41:07 Hep B, adolescent or pediatric 04/29/18 98 completed [place] [facility] 03/03/2023 13:41:07 Hep B, adolescent or pediatric 06/26/18 97 completed [place] [facility] 03/03/2023 13:41:07 DTaP, unspecified formulation 04/25/19 02 completed MORGAN Rainey - [facility] 03/03/2023 13:41:07 meningococcal MCV4, unspecified formulation 08/13/19 09 completed MORGAN Rainey - [facility] 03/03/2023 13:41:07 Past Encounters Encounter ID Performer Location Encounter Start Date Encounter Closed Date Diagnosis/Indication Diagnosis SNOMED-CT Code Diagnosis ICD10 Code Diagnosis IMO Codes Diagnosis Note [id number] ESTUARDO Lopez [employer] [address] [place] [address] MORGAN Snow [id number] 7 09/08/2017 08:50:02 09/08/2017 11:12:05 Routine care 660719609 Z34.91 Gestation period, 16 weeks 18979408 Z3A.16 Late entry into care 207954112 O09.32 [id number] Padmini Murry CNM [place] [employer] [address] [place] [address] MORGAN Snow [id number] 7 09/16/2017 13:10:47 09/16/2017 13:47:21 Late entry into care 344202660 O09.32 screening 2437 87647 Z36.9 Screening for malignant neoplasm of cervix 237015964 Z12.4 Z11.3 Routine an tenatal care 987825396 Z34.02 Gestation period, 17 weeks 70641831 Z3A.17 Normal 2866169 2 Z34.92 [id number] MD Ivania Goodrich [employer] [address] [place] [address] MORGAN Snow [id number] 7 09/30/2017 13:14:01 09/30/2017 14:59:35 Late entry into care 300154382 O09.32 Normal 5861484 2 Z34.92 Gestation period, 19 weeks 45008587 Z3A.19 screening 2437 96490 Z36.3 [id number] MD Ivania Werner [employer] [address] [place] [address] MORGAN Snow [id number] 7 10/28/2017 08:18:04 10/28/2017 09:09:58 Normal 00863213 Z34.92 Late entry into care 627862223 O09.32 Gestation period, 23 weeks 17630220 Z3A.23 [id number] ESTUARDO Lay [employer] [address] [place] [address] MORGAN Snow [id number] 7 11/25/2017 08:14:41 11/25/2017 10:28:30 Late entry into care 986697387 O09.32 Normal 0893083 2 Z34.02 screening 2437 61224 Z36.9 Gestation period, 27 weeks 51639001 Z3A.27 Vaginal discharge 842240 006 N89.8 Influenza vaccine needed 9063157338 106 Z23 Patient presents for flu vaccinatio n today. No fever. No history of egg allergy. Administer ed as below. [id number] ARMANDO Tejada [employer] [address] [place] [address] MORGAN Snow [id number] 7 12/09/2017 09:48:23 12/09/2017 10:18:38 Late entry into care 787602133 O09.32 Normal 7162381 2 Z34.92 Gestation period, 29 weeks 20995405 Z3A.29 Administra tion of diphtheria, pertussis, and tetanus vaccine 221685412 Z23 [id number] ARMANDO Tejada [employer] [address] [place] [address] MORGAN Snow [id number] 7 12/23/2017 11:05:50 12/23/2017 11:37:20 Late entry into care 302572491 O09.32 Normal 6146842 2 Z34.92 screening 2437 03399 Z36.9 Gestation period, 31 weeks 29361071 Z3A.31 [id number] ARMANDO Tejada [employer] [address] [place] [address] MORGAN Snow [id number] 7 01/06/2018 13:25:24 01/06/2018 13:56:47 Late entry into care 714489149 O09.32 Normal 8667417 2 Z34.92 screening 2437 51928 Z36.9 Gestation period, 33 weeks 14703664 Z3A.33 [id number] ARMANDO Tejada [employer] [address] [place] [address] MORGAN Snow [id number] 7 01/18/2018 14:59:24 01/18/2018 15:50:59 care 484501365 Z39.2 Hypertensive disorder 38 224648 I10 management 278 040654 Z39.1 [id number] ARMANDO [place] [employer] [address] [place] [address] MORGAN Snow [id number] 7 01/25/2018 09:59:38 01/25/2018 10:36:37 care 007863249 Z39.2 Contracept ion care management 604358186 Z30.9 [id number] Miriam Bearden APRN [place] [employer] [address] [place] [address] MORGAN Snow [id number] 7 03/29/2019 13:09:26 03/29/2019 13:50:59 Routine gynecologic examination done 7683377380 9101 Z01.419 Depression screening 171 617697 Z13.89 PHQ-9 completed today. Diet education 89511496 Z71.3 Counseling 081745518 Z71 .82 Exercise counselmaira calderon Patient encouraged to exercise 30 minutes 5 days a week. Examinatio n of blood pressure 747245641 Z01.30 Vaccine de clined by patient 9087942160 02 Z28.21 Pt declined flu vaccine today. Screening for malignant neoplasm of cervix 356235829 Z12.4 Z11.8 Patient advised that I will follow up with results. Active or passive immunization 537296549 Z23 Discussed HPV vaccine. Pt and mother are uncertain of immunizati on record.Vianey alexander send medical record request. Initiation of transdermal contraception done 0015775034 23232 Z30.018 Effectiven ess, correct use, advantages /disadvant ages, common side effects, serious complicati ons, contra-ind ications/p recautions and return to fertility were reviewed for the following: Combined oral contracept joce (pills/pat ch/ring), Progestero ne-only pills, Depo Provera injection, Nexplanon implant,Sk yla IUD, Mirena IUD, Paragard IUD. [id number] ESTUARDO [place] [address] [place] Snow [id number] 7 04/28/2020 10:42:33 04/28/2020 11:18:30 Body mass index 20-24 - normal 262973537 Z68.24 Left lower quadrant pain 887997737 R10.32 [id number] ESTUARDO Lay [employer] [address] [place] [address] MORGAN Snow [id number] 7 05/06/2020 09:41:41 05/06/2020 10:23:39 Pain in pelvis 96597467 R10.2 Patient will report and new or worsening symptoms. Cyst of left ovary 14436 93979 0017332 N83.202 Discussed options and pt would like to start an OCP to resolve. Patient advised to use heat to relieve cramping. Patient will take OTC pain medication s as directed. Patient will report new or worsening abdominal pain, severe vaginal bleeding, and dizziness. Finally patient advised to report moderate/s evere pain or bleeding during or after sex. Vaginal discharge 969127 006 N89.8 Reviewed the various causes of vaginal problems. Reviewed good vulvar/vag inal hygiene and ways to reduce symptoms. Will send a NuSwab today [id number] ESTUARDO Lay [employer] [address] [place] [address] MORGAN Snow [id number] 7 06/23/2020 15:06:17 06/23/2020 16:29:37 History of chlamydial infection 930885517 Z86.19 [id number] ESTUARDO Lay [employer] [address] [place] [address] MORGAN Snow [id number] 7 04/07/2021 14:49:42 04/07/2021 15:15:41 Cyst of right ovary 2215950434 2741930 N83.201 2.4 right ovarian cyst noted on CT at [facility] at 03/24/21 appt.Pt denies any pain at this time. Reproducti ve care management 908269616 Z31.9 Patient advised to get regular exercise, eat healthy foods and start a menstrual diary. [id number] ESTUARDO Lopez [employer] [address] [place] [address] MORGAN Snow [id number] 7 03/03/2023 13:26:58 03/03/2023 14:12:57 Patient medical record not available [id number] Z76.89 Dysmenorrhea 076925991 N 94.6 Health Concerns Section Related Observation LastModified by Organization Detai ls LastModified Time None Recorded Concern Status LastModified by Organization Details LastModified Time None Recorded Advance Directives Directive N: Payers Insurance Date Sequence Insurance Name Policy Number Policy Rain Covered Member ID Rain Member ID Guarantor Name 11/10/2023 1 [employer] [id number] Gen Robertson [id number] Keyona Robertson 03/03/2023 1 [employer] - MULTIPLAN [id number] [facility] [id number] Keyona Robertson 03/03/2023 1 [employer] [id number] Keyona Shah [id number] Keyona Robertson Notes Date Note Type Note Provider Name and Address Organization Details Recorded Time 04/29/19 21 text/htm l Patient is here for left lower pelvic pain x 2 months. Nothing has changed in the last couple of weeks.She states that the pelvic pain is usually mild and is intermittent. Nothing aggravates the pain other than intercourse at times. The pain is described as mild cramping.She hasn't had a pelvic exam in over a year. Denies any new partners since last pelvic exam. Denies having ovarian cyst in the past. Didn't have any issues or complications with past /delivery.She is trying to conceive and wants to make sure this pain she is having is not a major issue.LMP was 3/4. Nothing has changed with her cycles. Philly Bob, [employer] [address], [place], [address], [place] [facility] 04/28/2020 11:21:23 05/07/19 21 text/htm l Pelvic PainReported by PatientHPIFor location, patient reportssuprapubicandlower abdominal. For onset/timing, patient reports1-2 months. For duration, patient reportsintermittent. For quality, patient reportssharp,dull,stabbing,cr amping,pressure, andno change with intercourse. For severity, patient reportsmildandpain level 3/10. For context, patient reportsno contraception(wanting to get ). For alleviating factors, patient reportsnone. For aggravating factors, patient reportsnone. For associated symptoms, patient reportsno back pain,no chills,no constipation,no diarrhea,no pain with urination,normal emptying of bladder,no feelings of urgency,no blood in the urine,normal libido,no fever,no nausea,no vomiting,no nocturia,no sexual abuse,no ectopic pregnancies,no endometriosis,no urinary frequency,no vaginal itching or irritation, andno dyspareunia. Keyona presents today complaining of lower abdominal/pelvic pain for the past 2 months.She states the pain is mild and intermittent. She states having pains almost everyday (at some point) that last 5 minutes and then stops. She rates the pain a 3/10, when at its worst. She has noticed a vaginal discharge with an odor for the past few weeks. She is with the same partner as her pervious exam in 2019. Miriamaarti Bearden APRN [address], [place], [address], [place] [facility] 05/06/2020 10:25:16 06/24/19 21 text/htm l ROS as noted in the HPI Patient here for MUSTAPHA for Chlamydia from 05/06/2020. Her and her partner finished meds and no sexual contact for 2 weeks after both finished. Miriamaarti Bearden APRN [address], [place], [address], [place] [facility] 06/23/2020 16:01:20 04/08/19 22 text/htm l Emergency Department Follow-Up RecordReported by PatientEmergency Room Follow-Up RecordFor discharge information, patient reportsname of hospital/urgent care patient was seen: ([facility]),patient presented to hospital/urgent care on or around: actual date 03/24/2021,patient presented to hospital for treatment of: (abdominal pain),treatment received by hospital/urgent care:,patient's condition has: improved, andhospital records available at the time of this visit: yes. Keyona presents today for an ER follow up.She was seen at [facility] on 03/24/21, for abdominal pain and a CT was ordered. The CT revealed a 2.4 cm right ovarian cyst. She was given zofran at the ER.She denies any pain or discomfort today. In addition, she would like to discuss fertility. She and Stanton, age 25, have been trying for over 1 year. They both have 1 child each from previous relationships. States her cycles are q 28-30 days. States she has a fertility mikayla on her phone. Miriam Bearden, [employer] [address], [place], [address], [place] [facility] 04/07/2021 15:14:40 03/03/19 24 text/htm l ROS as noted in the HPI Keyona presents today with concerns regarding irregular bleeding pattern and pain with menses. 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 Keyona states periods are always painful on day 1. Most recently, she was unable to go into work.Keyona currently is not using control as she is currently not sexually active, and does not desire to start.She had prior care @ [facility]. She had Dx. Laparoscopy under 2 years ago and states they didn't see anything . Records requested.We had a lengthy discussion regarding tx options. She agrees to try ibuprofen 2 days prior to onset of menses and continue x 5-6 days.She will f/u if this is not helpful or prn additional concerns or needs. Alexandra Christiansoncker, [employer] [address], [place], [address], [place] [facility] 03/03/2023 17:24:59 OBGyn Episode Ob Episode Information Episode Created Date Number of Fetuses Patient Bloodtype Patient rh Status Prepregnancy Weight lbs Domestic Partner Domestic Partner Phone Father Name Freight Rate Specialist Status 09/09/19 18 1 A Positive 130 Genbert Robertson-23 [facility] CLOSED Fetus Data First Name Last Name Admitted to NICU Weight (g) Sex Living Outcome Pediatric Complications Fetus ID Race Codes Race Delivery Type Gerard Nick true [phone] M true Prematur e 8651 Vaginal Problems Problem Notes 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 Not doing litter boxesBottle, unsure of epidural, [facility], circ if male- plans to pump breastmilk and bottlefeed breastmilk. contraception- unsure- disc 09/30Expecting baby boy David Problem Name Start Date End Date Resolution Snomed Code Not e Late entry into care 09/08/2017 [id number] 16 weeks due t o inability to get insurance until then Active or passive immunization 09/08/2017 755964534 Tdap @ 30 wks ___11/2/18FLu vaccine - 11/25/17 screening 698561350 [x] Quad Screen negativeUS 09/30 nl/complete MALE posterior placenta Korey Calculation Initial Korey Date Initial Exam Date Initial Exam Provider Initial Ultrasound Date Last Menstrual Period Date Ultra Sound Weeks Gestation 02/18/2018 09/08/2017 09/08/2017 05/14/2017 16 Eighteen To Twenty Week Korey Update Ultra Sound Date Fundal Height At Umbil Quickening Date Ultra Sound Latest Weeks Gestation Final Kroey Confirmed By Final Korey Confirmed Date Final Korey Date Ultra Sound Latest Days Gestation 0 02/18/19 19 0 Pre-shadia Flowsheet Flowsheet Date 09/08/2017 Huggins Score Blood Edema Fundus Height Fundus Units Glucose Ketones Leukocytes Nitrite Labor Signs Protein Cervic Dilation Cervic Effacement Cervic Station neg none none negative trace Negative none neg Type Weight in lbs Pre/Post Dialysis Refused 126.95658013818 BP Diastolic BP Location Tested BP Systolic BP Type 58 120 Fetus Heart Rate Present A 154 Present Fetus Movement A Yes Comments OBHX, no lof or abnormal dis charge, no vb, no complaints, NMT;Hx rev'd; FHTs per doppler; otc PNV made her sick-recommended Flintstones x 2/day; dating US today-confirms dates; fetus active, post plac; rto 1 wk for OBPE/quad screen; dgt Flowsheet Date 09/16/2017 Huggins Score Blood Edema Fundus Height Fundus Units Glucose Ketones Leukocytes Nitrite Labor Signs Protein Cervic Dilation Cervic Effacement Cervic Station neg none 17 wks none negative trace Negative none neg Type Weight in lbs Pre/Post Dialysis Refused 129.861688100699 BP Diastolic BP Location Tested BP Systolic BP Type 68 110 Fetus Heart Rate Present A Present Fetus Movement A Yes Comments No vb, lof or unusual d/c. W ants penta screen today. OBPE today. mdr//ObPE, Pap, GC/CT obtained. Feeling flutters. Desires Quad screen. RTC 2 wks with anatomy scan. RH Flowsheet Date 09/30/2017 Huggins Score Blood Edema Fundus Height Fundus Units Glucose Ketones Leukocytes Nitrite Labor Signs Protein Cervic Dilation Cervic Effacement Cervic Station neg none 20 wks none negative none Negative none neg Type Weight in lbs Pre/Post Dialysis Refused 181.554975003276 BP Diastolic BP Location Tested BP Systolic BP Type 76 128 Fetus Heart Rate Present A Present Fetus Movement A Yes Comments g&a us,afm,no vb,no lof,neg leuk,neg nitr, no new complaints voiced. kh//there with , US reviewed aga, MALE, posterior placenta. nl and complete darshana . disc neg quad screen disc contraception- no prior hormonal methods, encourage, unsure; bottle; she is at [facility] . avoiding litter! nq nc rto 4 wk/ Flowsheet Date 10/28/2017 Huggins Score Blood Edema Fundus Height Fundus Units Glucose Ketones Leukocytes Nitrite Labor Signs Protein Cervic Dilation Cervic Effacement Cervic Station neg 23 cm none negative none Negative Cramping neg Type Weight in lbs Pre/Post Dialysis Refused 134.648632693732 BP Diastolic BP Location Tested BP Systolic BP Type 78 122 sitting Fetus Heart Rate Present A 154 Present Fetus Movement A Yes Comments AFM, no lof, no vb. no compl aints. bs First grandbaby. Sister in law is 5wk. Prepregnancy wt 124-128. PNVs fine. F/u 4 wk for apt and GCT.//DSL Flowsheet Date 11/25/2017 Huggins Score Blood Edema Fundus Height Fundus Units Glucose Ketones Leukocytes Nitrite Labor Signs Protein Cervic Dilation Cervic Effacement Cervic Station neg none 28 none negative none Negative none neg Type Weight in lbs Pre/Post Dialysis Refused 138.809988697618 BP Diastolic BP Location Tested BP Systolic BP Type 72 118 sitting Fetus Heart Rate Present A 152 Fetus Movement A Yes Comments Afm, 1 hour gtt, cbc, no lof , no vb, ? bv has vaginal odor-ctFelicia presents today for 1 hr, CBC and visit. She is c/o vaginal discharge. Wet mount is negative, will send NuSwab. She would like a flu vaccine. No other questions or concerns. F/U 2 wks. Flowsheet Date 12/09/2017 Huggins Score Blood Edema Fundus Height Fundus Units Glucose Ketones Leukocytes Nitrite Labor Signs Protein Cervic Dilation Cervic Effacement Cervic Station neg none 30 cm none negative trace Negative none neg Type Weight in lbs Pre/Post Dialysis Refused 140.924815058019 BP Diastolic BP Location Tested BP Systolic BP Type 74 116 sitting Fetus Heart Rate Present A Present Fetus Movement A Yes Comments No vb, ,lof or unusual d/c. Discussed TDAP, CDC info given to read, may get next visit. mdr//Baby active. TDAP given. Sinus drainage. Reviewed OTC meds. RTC 2 wks.RH Flowsheet Date 12/23/2017 Huggins Score Blood Edema Fundus Height Fundus Units Glucose Ketones Leukocytes Nitrite Labor Signs Protein Cervic Dilation Cervic Effacement Cervic Station neg none 32 cm none negative trace Negative none neg Type Weight in lbs Pre/Post Dialysis Refused 141.862177150536 BP Diastolic BP Location Tested BP Systolic BP Type 78 122 sitting Fetus Heart Rate Present A Present Fetus Movement A Yes Comments No vb, lof or unusual d/c. F eels well. mdr//Baby active. Baby moves alot at night. Doing well. RH Flowsheet Date 01/06/2018 Huggins Score Blood Edema Fundus Height Fundus Units Glucose Ketones Leukocytes Nitrite Labor Signs Protein Cervic Dilation Cervic Effacement Cervic Station neg none 33 cm none negative trace Negative none neg Type Weight in lbs Pre/Post Dialysis Refused 142.907201852194 BP Diastolic BP Location Tested BP Systolic BP Type 72 118 sitting Fetus Heart Rate Present A Present Fetus Movement A Yes Comments No vb, lof or unusual d/c. F eels well, does report some hip soreness. mdr//Baby active. Hip tenderness improve with walking. RTC 2 wks.RH Flowsheet Date 01/18/2018 Huggins Score Blood Edema Fundus Height Fundus Units Glucose Ketones Leukocytes Nitrite Labor Signs Protein Cervic Dilation Cervic Effacement Cervic Station Type Weight in lbs Pre/Post Dialysis Refused 128.771931361568 BP Diastolic BP Location Tested BP Systolic BP Type 98 144 sitting 88 132 sitting Fetus Heart Rate Present Fetus Movement Comments Menstrual History Last Menstrual Date Menses Monthly On Bcp Conception Prior Menses Frequency Hcg Plus Date Menarche Onset Age 0405/14/2017 true 05/14/2017 28 06/08/19 1 8 13 Genetic Screening And Infection History Question Response Note Patient's Age Will Be 35 Years Or Older At Estim ated Date of Delivery false Thalassemia (Syrian, Kiswahili, Mediterranean, Or Background): MCV < 80 false Neural Tube Defect (Meningomyelocele, Spina Bifi da, Or Anencephaly) false Congenital Heart Defect false Down Syndrome false Herb-Sachs (eg, Methodist, Cajun, Icelandic-Nemaha) f alse Desire Disease false Sickle Cell Disease Or Trait () false Hemophilia Or Other Blood Disorders false Muscular Dystrophy false Cystic Fibrosis false Caribou's Chorea false Mental Retardation/Autism false If Yes, Was Person Tested For Fragile X? false Other Inherited Genetic Or Chromosomal Disorder false Maternal Metabolic Disorder (eg, Type 1 Diabetes , PKU) false Patient Or Baby's Father Had A Child With Defects Not Listed Above false Recurrent Loss, Or A Stillbirth false Medications (including Suppl ements, Vitamins, Herbs, OTC Drugs), Illicit/Recreational Drugs, Alcohol false If Yes, Agent(s) And Strength/Dosage false Any Other Genetic History false Live With Someone With TB Or Exposed To TB false Patient Or Partner Has History Of Genital Herpes false Rash Or Viral Illness Since Last Menstrual Perio d false History Of STD, Gonorrhea, Chlamydia, HPV, Syphi lis false Other Infection History false History of HIV false History of Hepatitis false Prior GBS-infected child false Recent Travel Outside of Country false Delivery Information Delivery Date Delivery Type Labor Anesthesia Weeks Gestation Incision Type Labor Labor Length Hrs Delivered By Post Complications Tubal Sterilization Discharge Date Comments 8 [facility]1 true [facility] None 01/11/2018 PPROM , pre E, transferr ed to , [facility] without problems there. Discharge Information Feeding Method Contraceptive Method Maternal HG B and HCT Levels Breast Unsure
== END 2024-12-04 23:59 | disposition home or self-care (01) ==
LOC: RAD 11:02
PROVIDERS: PCP Nurse Practitioner Family; Visit Provider Obstetrics & Gynecology
DX: Z34.92 Encounter for supervision of normal pregnancy, unspecified, second trimester (principal); Z36.86 Encounter for antenatal screening for cervical length; Z3A.15 15 weeks gestation of pregnancy
CPT/HCPCS: 76817

== ENCOUNTER 2024-12-21 09:04 | Outpatient (CLI) | payer OTHER, SELFPAY ==
--- OUTSIDE RECORDS SUMMARY | 2024-05-12 16:30 | XMS_ITS ---
Author Organization [facility] Address [address] [facility] [address] [place] [address] Care Team Providers Care Claim Administrator Name Role Phone Chago Ireland Primary Care Provider [phone] Roxanne Pina Unavailable [phone] Migration, Provider Unavailable Unavailable Allergies Allergen (clinical drug ingredient) Drug/Non Drug Allergy documented on EMR Reaction Allergy Type Onset Date Status SULFA (uncoded) rash Allergy Acti ve [facility] Conversion Encounter Medications Medication SIG (Take, Route, Frequency, Duration) Notes Start Date End Date Status Levothyroxine Sodium 75 MCG 1 tab(s) ora lly once a day; Duration: 30 day(s) Active Encounters Encounter Location Date Provider Diagnosis [facility] [address] [facility] [address] [place] [address] 05/12/2024 Provider Migration Plan Of Treatment No Information Progress Notes * Keyona MICHELLE NDOB:1995 (29 yo F)Acc No.[id number]:05/12/2024 Patient: Keyona SOLIMAN Provider: Kiley enciso Migration :1995 A ge:29 Y S ex:Female Date:05/12/2024 Address[place] [place], [id number] Pcp:Chago Ireland Subjective: * Chief Complaints: * [facility] . [facility] * Medical History: * Medications: T aking Levothyroxine Sodium 75 MCG Tablet 1 tab(s) orally once a day * Allergies: S ULFA: rash. Objective: * Vitals: Assessment: Plan: * Treatment: * * Electronic signature of Prov ider Migration on 12/21/2024 at 09:07 AM EST Sign off status: Pending * Provider: Kiley enciso Migration Date: 0 05/12/2024 Generated for Rita tohmas/Tr/Shanna on: 02/21/2024 09:07 AM EST
--- OUTSIDE RECORDS SUMMARY | 2024-11-19 10:09 | XMS_ITS | Encounter Summary ---
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 [...] Description 06/26/2025 10:00 AM EDT Office Visit [facility] [place] [address] [facility] [address] [place] [address] Paramjit Kuo MD [address] [place] [address] documented as of this encounter Procedures Procedure [...] - 4.200 mcIU/mL 11/19/2024 5:43 PM EDT [facility] Blood VENOUS BLOOD / Unknown Venipuncture / Unknown 11/19/2024 11:26 AM EDT 11/19/2024 11:26 AM EDT Narrative [facility] - 11/19/2024 5:43 PM EDT Ingestion of dav doses of biotin (>5 mg/day) taken within 8 hours of drawing blood sample can interfere with this immunoassay test. us Paramjit Kuo MD CHEMISTRY ORDERABLES Final Re sult [facility] 1 [facility] , [place] [address] * T4, FREE (THYROXINE) (11/19/2024 11:26 AM EDT) Free T4 1.15 0.80 - 1.80 ng/dL 11/19/2024 5:43 PM EDT [facility] Blood VENOUS BLOOD / Unknown Venipuncture / Unknown 11/19/2024 11:26 AM EDT 11/19/2024 11:26 AM EDT Narrative [facility] - 11/19/2024 5:43 PM EDT Ingestion of dav doses of biotin (>5 mg/day) taken within 8 hours of drawing blood sample can interfere with this immunoassay test. Paramjit Kuo MD CHEMISTRY ORDERABLES Final Re sult Performing Organization Address [facility] Co de Phone Number [facility] 1 [facility] , [place] [address] * T3 FREE (11/19/2024 11:26 AM EDT) T3 Free 3.09 2.00 - 4.40 pg/mL 11/19/2024 5:43 PM EDT [facility] [email or web address] Blood VENOUS BLOOD / Unknown Venipuncture / Unknown 11/19/2024 11:26 AM EDT 11/19/2024 11:26 AM EDT Narrative [facility] [email or web address] - 11/19/2024 5:43 PM EDT Ingestion of dav doses of biotin (>5 mg/day) taken within 8 hours of drawing blood sample can interfere with this immunoassay test. 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
--- OUTSIDE RECORDS SUMMARY | 2024-11-26 12:00 | XMS_ITS | Encounter Summary ---
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 (Primary Dx); Thyroid disease in in second trimester Social History Tobacco Use Types Packs/Day Years Used Date Smoking Tobacco: Never Smokeless Tobacco: Never Alcohol Use Standard Drinks/Week Comments Never 0 (1 standard drink = 0.6 oz pur e alcohol) Estimated Date of Delivery Comme nts Yes 05/27/2025 Sex and Gender Information Value Date Recorded Sex Assigned at Not on file Legal Sex Female 8:58 AM EDT Gender Identity Not on file Sexual Orientation Not on file documented as of this encounter Last Filed Vital Signs Vital Sign Reading Time Taken Comments Blood Pressure 122/72 11/26/2024 12:53 PM EDT Pulse 98 11/26/2024 12:53 PM EDT Temperature - - Respiratory Rate 18 11/26/2024 12:53 PM EDT Oxygen Saturation - - Inhaled Oxygen Concentration - - Weight 62.6 kg (138 lb) 11/26/2024 12:53 PM EDT Height 157.5 cm (5' 2 ) 11/26/2024 12:53 PM EDT Body Mass Index 25.24 11/26/2024 12:53 PM EDT documented in this encounter Progress Notes * Paramjit Kuo MD - 11/26/2024 1:00 PM EDT Subjective Subjective: Patient ID: Keyona Vazquez is a 29 y.o. female. Chief Complaint Patient presents with Brodie's Thyroiditis Due date May 27, 2025 HPI: Keyona returns for follow up of hypothyroidism. She is again and about 14 weeks gestation. She is feeling well overall. She had labs done that I reviewed with her. PMSFH: Patients past medical, family and social histories were reviewed and updated. There were no changesexcept as noted. Review of Systems Objective Current Outpatient Medications Medication Sig Dispense Refill LEVOthyroxine (SYNTHROID) 88 mcg Oral Tablet Take 1 Tablet by mouth daily. 90 Tablet 3 aspirin 81 mg Oral Tablet, Delayed Release (E.C.) Take 81 mg by mouth daily. (Patient not taking: Reported on 11/26/2024) No current facility-administered medications for this visit. Objective: DATA REVIEW: LABS Labs reviewed in chart, results discussed with patient. No results found for: TSHREFLEX Lab Results Component Value Date TSH 1.620 11/19/2024 TSH 1.560 05/15/2024 TSH 0.870 11/01/2023 Lab Results Component Value Date FREET4 1.15 11/19/2024 FREET4 1.21 05/15/2024 FREET4 1.37 06/29/2022 Lab Results Component Value Date T3FREE 3.09 11/19/2024 T3FREE 3.19 05/15/2024 T3FREE 2.72 06/29/2022 Lab Results Component Value Date TPOAB 811.31 (H) 09/19/2020 IMAGING Vitals: 11/26/24 1253 BP: 122/72 BP Location: Left arm Pulse: 98 Resp: 18 Weight: 138 lb (62.6 kg) Height: 5' 2 (1.575 m) Body mass index is 25.24 kg/m??. Physical Exam Vitals and nursing note reviewed. Neck: Thyroid: No thyroid mass, thyromegaly or thyroid tenderness. Skin: General: Skin is warm and dry. 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 Her thyroid levels are normal. I recommend she continue levothyroxine 88 for now. Goiter resolved. Her thyroid gland feels normal on exam today. Thyroid disease in second trimester. Her thyroid hormone levels are normal and stable. I recommend retesting beginning of third trimester. I will review labs and likely increase dose to 100mcg. Return to office: Return in about 7 months (around 06/26/2025) for Hypothyroidism. 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
--- NOTE | 2024-12-21 09:00 | US_ITS ---
PROCEDURE: US OB TRANSVAGINAL CLINICAL INDICATION: cervical length check COMPARISON: US US OB TRANSVAGINAL from 12/04/2024 FINDINGS: Transvaginal and transabdominal sonographic images of the pelvis were obtained. From her last menstrual period she is 17weeks 4days. Viable fetus in the breech presentation with a posterior placenta. heart tones were not done but the fetus was active. There is debris noted at the internal cervical os as well as particulate matter within the amniotic fluid. Transvaginally the cervix measures 2.89 cm-3.53 cm. Transabdominally the cervix measures 2.69 cm. The placenta is posterior, low lying and measures 1.66 cm from the internal cervical os IMPRESSION: 1. Viable fetus in the breech presentation with a posterior placenta grade 1. The placenta is 1.66 cm from the internal cervical os. 2. The amniotic fluid contains particulate matter that has accumulated at the internal cervical os. 3. Transvaginally the cervix measures 2.89-3.53 cm. Transabdominally the cervix measures 2.69 cm. 4. Suggest repeat ultrasound with complete anatomical scan at 20 weeks. Dictated by: Curt Tovar MD 12/21/2024 12:50 Curt Tovar MD in OV 12/21/2024 12:50
--- OUTSIDE RECORDS SUMMARY | 2024-12-21 09:07 | XMS_ITS | Clinical Summary ---
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); Thyroid disease in in second trimester 11/19/2024 11:09 AM EDT - 11/19/2024 11:59 PM EDT Hospital Encounter [facility] [place] [place] [address] 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 Discharge Disposition: Home or Self Care 11/19/2024 Results Follow-Up [place] [address] [facility] [address] [place] [address] Paramjit Kuo MD T3 FREE, [...] AM EDT [facility] Visit [facility] [place] [address] [facility] [address] [place] [address] Paramjit Kuo MD [address] [place] [address] Health Maintenance Due Date Last Done Comments [...] - 4.40 pg/mL 11/19/2024 5:43 PM EDT [facility] Blood VENOUS BLOOD / Unknown Venipuncture / Unknown 11/19/2024 11:26 AM EDT 11/19/2024 11:26 AM EDT Narrative PREFERRED [employer] - 11/19/2024 5:43 PM EDT Ingestion of dav doses of biotin (>5 mg/day) taken within 8 hours of drawing blood sample can interfere with this immunoassay test. Paramjit Kuo MD CHEMISTRY ORDERABLES Final Re sult Performing Organization Address [facility] Co de Phone Number [employer] [facility] [address] [facility] , [place] [phone] * THYROID STIMULATING HORMONE (11/19/2024 11:26 AM EDT) TSH 1.620 0.270 - 4.200 mcIU/mL 11/19/2024 5:43 PM EDT [employer] Blood VENOUS BLOOD / Unknown Venipuncture / Unknown 11/19/2024 11:26 AM EDT 11/19/2024 11:26 AM EDT Narrative [employer] - 11/19/2024 5:43 PM EDT Ingestion of dav doses of biotin (>5 mg/day) taken within 8 hours of drawing blood sample can interfere with this immunoassay test. Paramjit Kuo MD CHEMISTRY ORDERABLES Final Re sult Performing Organization Address [facility] de Phone Number [employer] [address] [facility] , [place] [address] * T4, FREE (THYROXINE) (11/19/2024 11:26 AM EDT) Pathologist [facility] Free T4 1.15 0.80 - 1.80 ng/dL 11/19/2024 5:43 PM EDT [employer] Blood VENOUS BLOOD / Unknown Venipuncture / Unknown 11/19/2024 11:26 AM EDT 11/19/2024 11:26 AM EDT Narrative [employer] - 11/19/2024 5:43 PM EDT Ingestion of dav doses of biotin (>5 mg/day) taken within 8 hours of drawing blood sample can interfere with this immunoassay test. Paramjit Kuo MD CHEMISTRY ORDERABLES Final Re sult Performing Organization Address [facility] Co de Phone Number [employer] [address] [facility] , [place] [address] from Last 3 Months Insurance [employer] Care Teams Slot Operations Director Relationship Specialty Start Date End Date Nabila Cruz PCP - General 05/25/21
--- OUTSIDE RECORDS SUMMARY | 2024-12-21 09:07 | XMS_ITS | Encounter Summary ---
Author Organization [facility] [place] [address] Care Team Providers Care Oil Well Cable Tool Driller Name Role Phone Nabila Cruz Primary Care Provider Alexandra freeman Encounter Details Date Type Department Care Team (Late Contact Info) Description 11/19/2024 Results Follow-Up [facility] [address] [employer] [place] [phone] Paramjit Kuo MD [address] [place] [address] T3 FREE, T4, FREE (THYROXINE), THYROID STIMULATING [...] Description 06/26/2025 10:00 AM EDT Office Visit [facility] [address] [employer] [address] [address] Paramjit Kuo MD [address] [place] [address] documented as of this encounter Visit Diagnoses Not on filedocumented in this encounter Care Teams Oil Well Cable Tool Driller Relationship Specialty Start Date End Date Nabila Cruz PCP - General 05/25/21 documented as of this encounter
== END 2024-12-21 23:59 | disposition home or self-care (01) ==
LOC: RAD 09:05
PROVIDERS: PCP Nurse Practitioner Family; Visit Provider Obstetrics & Gynecology
DX: O28.3 Abnormal ultrasonic finding on antenatal screening of mother (principal); O32.1XX0 Maternal care for breech presentation, not applicable or unspecified; O99.282 Endocrine, nutritional and metabolic diseases complicating pregnancy, second trimester; E03.9 Hypothyroidism, unspecified; Z3A.17 17 weeks gestation of pregnancy
CPT/HCPCS: 76817

== ENCOUNTER 2025-01-07 10:43 | Outpatient (CLI) | payer OTHER, SELFPAY ==
--- OUTSIDE RECORDS SUMMARY | 2024-11-19 10:09 | XMS_ITS | Encounter Summary ---
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 11/02/2023 LEVOthyroxine (SYNTHROID) 88 mcg Oral Tablet Take 1 Tablet by mouth daily. 90 Tablet 3 05/24/2024 documented as of this encounter Discharge Disposition Disposition Code Departure Means Destination Home or Self Care documented in this encounter Plan of Treatment Upcoming Encounters Date Type Department Care Team (Late st Contact Info) Description 06/26/2025 10:00 AM EDT Office Visit [facility] [address] [facility] [address] [place] [address] Paramjit Kuo MD [address] [place] [address] documented as of this encounter Procedures Procedure Name Priority Date/Time Associated Diagnosis Comments T3 FREE Routine 11/19/2024 11:26 AM EDT 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 THYROID STIMULATING HORMONE Routine 11/19/2024 11:26 AM EDT 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 us Paramjit Kuo MD CHEMISTRY ORDERABLES Final Re sult [facility] [address] [facility] , [place] [address] * T4, FREE (THYROXINE) (11/19/2024 11:26 AM EDT) Free T4 1.15 0.80 - 1.80 ng/dL 11/19/2024 5:43 PM EDT [facility] Blood VENOUS BLOOD / Unknown Venipuncture / Unknown 11/19/2024 11:26 AM EDT 11/19/2024 11:26 AM EDT Narrative [facility] - 11/19/2024 5:43 PM EDT Ingestion of dav doses of biotin (>5 mg/day) taken within 8 hours of drawing blood sample can interfere with this immunoassay test. Paramjit Kuo MD CHEMISTRY ORDERABLES Final Re sult Performing Organization Address [facility] Co de Phone Number [facility] [address] [facility] , [place] [address] * T3 FREE (11/19/2024 11:26 AM EDT) T3 Free 3.09 2.00 - 4.40 pg/mL 11/19/2024 5:43 PM EDT [facility]REF[facility]ED [facility] Blood VENOUS BLOOD / Unknown Venipuncture / Unknown 11/19/2024 11:26 AM EDT 11/19/2024 11:26 AM EDT Narrative [facility] - 11/19/2024 5:43 PM EDT Ingestion of dav doses of biotin (>5 mg/day) taken within 8 hours of drawing blood sample can interfere with this immunoassay test. Paramjit Kuo MD CHEMISTRY ORDERABLES Final Re sult Performing Organization Address [facility] Co de Phone Number [facility] [address] 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
--- OUTSIDE RECORDS SUMMARY | 2024-11-26 12:00 | XMS_ITS | Encounter Summary ---
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 She [...] Description 06/26/2025 10:00 AM EDT Office Visit [facility] [address] [address] Paramjit Kuo MD [address] [place] [address] Scheduled Orders Name Type Priority Associated Diagnoses [...] trimester documented in this encounter Care Teams Children'S Minister Relationship Specialty Start Date End Date Nabila Cruz PCP - General 05/25/21 documented as of this encounter
--- NOTE | 2025-01-07 10:48 | US_ITS ---
PROCEDURE: US OB /MATERNAL DETAIL CLINICAL INDICATION: schedule 20wk anatomy scan in 3wks. COMPARISON: US US OB TRANSVAGINAL from 12/04/2024 US US OB TRANSVAGINAL from 12/21/2024 FINDINGS: Transabdominal sonographic images of the pelvis were obtained. From her established due date she is 20 weeks 0 days. Single viable intrauterine gestation. Breech position. Placenta: Posteriorplacenta grade 1. There is an average amount of fluid. The cervix appears satisfactory. Closed and measuring 2.66-3.34 cm in length transvaginally. Complete survey performed and was unremarkable on the submitted images as in PACS. No discrete anomalies identified on survey imaging by technologist. Active fetus. Three-vessel cord with satisfactory umbilical cord insertion. 4- chamber heart noted. Situs, aortic arch, appear normal. LVOT, RVOT and three-vessel view were not well visualized secondary to position Survey of brain & ventricles Unremarkable. Cerebellum, thalamus, choroid plexus, cisterna magna appear normal. Face and neck survey unremarkable. Profile, nasion, lips and nose appeared normal. Diaphragm and chest views unremarkable. Abdomen: Both kidneys noted and unremarkable. Stomach and bladder noted and satisfactory. Spine: Survey of the spine satisfactory with no anomalies identified nor imaged. Cervical, thoracic, lower spine appear normal. Both arms and legs noted. Amniotic Fluid: Adequate. MVP 3.07 cm Measurements: Average ultrasound age 20weeks 3days. Estimated due date by ultrasound age 0405/24/2025. Estimated weight 346g BPD = 20weeks 2days HC = 20weeks 3days AC = 20weeks 0 days FL = 20weeks 6days Growth Percentile= 64 Heart Rate = 156bpm Cerebellum = 20weeks 0 days Humerus = 22weeks 0 days HC/AC is 1.23 FL/BPD is 0.72 FL/AC is 0.23 IMPRESSION: 1. Viable fetus in the breech presentation with a posterior placenta grade 1. 2. The fluid is within normal limits with an MVP 3.07 cm. 3. Cervix is seen transvaginally and measures between 2.66-3.34 cm in length. Suggest repeat views and monitoring for shortening of the cervix. 4. cardiac scan was incomplete secondary to position and suggest return in 2 weeks for repeat ultrasound. 5. The rest of the anatomical scan appears normal. 6. biometry is consistent with the dates. Dictated by: Curt Tovar MD 01/07/2025 16:59 Curt Tovar MD in [place] 01/07/2025 16:59
--- OUTSIDE RECORDS SUMMARY | 2025-01-07 11:33 | XMS_ITS | Encounter Summary ---
Author Organization [place] [address] Care Team Providers Care Schedule Announcer Name Role Phone Nabila Cruz Primary Care Provider Alexandra freeman Encounter Details Date Type Department Care Team (Late Contact Info) Description 11/19/2024 Results Follow-Up [facility] [address] [place] [phone] Paramjit Kuo MD [address] [place] [address] T3 FREE, T4, FREE (THYROXINE), THYROID STIMULATING [...] Description 06/26/2025 10:00 AM EDT Office Visit [facility] [address] [address] Paramjit Kuo MD [address] [place] [address] documented as of this encounter Visit Diagnoses Not on filedocumented in this encounter Care Teams Schedule Announcer Relationship Specialty Start Date End Date Nabila Cruz PCP - General 05/25/21 documented as of this encounter
--- OUTSIDE RECORDS SUMMARY | 2025-01-07 11:33 | XMS_ITS | Clinical Summary ---
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 Discharge Disposition: Home or Self Care 11/19/2024 Results Follow-Up [place] [address] [facility] [address] [place] [address] Paramjit Kuo MD T3 FREE, [...] AM EDT [facility] [place] [address] [facility] [address] [place] [address] Paramjit Kuo MD 1500 [place] [address] Health Maintenance Due Date Last Done Comments [...] - 4.40 pg/mL 11/19/2024 5:43 PM EDT [employer] Blood VENOUS BLOOD / Unknown Venipuncture / Unknown 11/19/2024 11:26 AM EDT 11/19/2024 11:26 AM EDT Narrative [employer] - 11/19/2024 5:43 PM EDT Ingestion of dav doses of biotin (>5 mg/day) taken within 8 hours of drawing blood sample can interfere with this immunoassay test. Paramjit Kuo MD CHEMISTRY ORDERABLES Final Re sult Performing Organization Address [facility] Co de Phone Number [employer] [facility] [address] [facility] , [place] [phone] * THYROID STIMULATING HORMONE (11/19/2024 11:26 AM EDT) TSH 1.620 0.270 - 4.200 mcIU/mL 11/19/2024 5:43 PM EDT [employer] Blood VENOUS BLOOD / Unknown Venipuncture / Unknown 11/19/2024 11:26 AM EDT 11/19/2024 11:26 AM EDT Narrative [employer] - 11/19/2024 5:43 PM EDT Ingestion of dav doses of biotin (>5 mg/day) taken within 8 hours of drawing blood sample can interfere with this immunoassay test. Paramjit Kuo MD CHEMISTRY ORDERABLES Final Re sult Performing Organization Address [facility] de Phone Number [employer] [address] [facility] , [place] [address] * T4, FREE (THYROXINE) (11/19/2024 11:26 AM EDT) Pathologist [facility] Free T4 1.15 0.80 - 1.80 ng/dL 11/19/2024 5:43 PM EDT [employer] Blood VENOUS BLOOD / Unknown Venipuncture / Unknown 11/19/2024 11:26 AM EDT 11/19/2024 11:26 AM EDT Narrative [employer] - 11/19/2024 5:43 PM EDT Ingestion of dav doses of biotin (>5 mg/day) taken within 8 hours of drawing blood sample can interfere with this immunoassay test. Paramjit Kuo MD CHEMISTRY ORDERABLES Final Re sult Performing Organization Address [facility] Co de Phone Number [employer] [address] [facility] , [place] [address] from Last 3 Months Insurance [employer] Care Teams Hedge Trimmer Relationship Specialty Start Date End Date Nabila Cruz PCP - General 05/25/21
== END 2025-01-07 23:59 | disposition home or self-care (01) ==
LOC: RAD 10:45
PROVIDERS: PCP Nurse Practitioner Family; Visit Provider Obstetrics & Gynecology
DX: O26.872 Cervical shortening, second trimester (principal); O32.1XX0 Maternal care for breech presentation, not applicable or unspecified; O99.282 Endocrine, nutritional and metabolic diseases complicating pregnancy, second trimester; E03.9 Hypothyroidism, unspecified; Z3A.20 20 weeks gestation of pregnancy
CPT/HCPCS: 76811

== ENCOUNTER 2025-01-14 16:00 | Outpatient (CLI) | payer OTHER, SELFPAY ==
--- NOTE | 2025-01-14 16:00 | US_ITS ---
PROCEDURE: US OB TRANSVAGINAL CLINICAL INDICATION: cervical length COMPARISON: US US OB TRANSVAGINAL from 12/04/2024 US US OB /MATERNAL DETAIL from 01/07/2025 FINDINGS: Transvaginal sonographic images of the pelvis were obtained. The following parameters are obtained: From her established due date she is 21weeks 0 days Viable fetus in the cephalic presentation. The cervix measures 2.66-2.84 cm transvaginally. There is not appear to be any vascularity in front of the cervix. heart rate: 165bpm bpm. Amniotic fluid: Not assessed Anatomy scan not done. IMPRESSION: 1. Viable fetus in the cephalic presentation. The placenta was not visualized. 2. Transvaginal images were taken of the cervix and it measures between 2.66cm and 2.84 cm transvaginally. 3. There does not appear to be any vascularity in front of the cervix. 4. biometry and anatomy were not performed today. Dictated by: Curt Tovar MD 01/14/2025 16:43 Curt Tovar MD in [place] 01/14/2025 16:43
== END 2025-01-14 23:59 | disposition home or self-care (01) ==
LOC: RAD 16:00
PROVIDERS: PCP Nurse Practitioner Family; Visit Provider Obstetrics & Gynecology
DX: O26.872 Cervical shortening, second trimester (principal); O09.292 Supervision of pregnancy with other poor reproductive or obstetric history, second trimester; Z3A.21 21 weeks gestation of pregnancy
CPT/HCPCS: 76817

== ENCOUNTER 2025-01-28 13:32 | Outpatient (CLI) | payer OTHER, SELFPAY ==
--- OUTSIDE RECORDS SUMMARY | 2024-05-12 16:30 | XMS_ITS ---
Author Organization [facility] Address [address] [facility] [address] [place] [address] Care Team Providers Care Artist Agent Name Role Phone Chago Ireland Primary Care Provider Roxanne Pina Unavailable [phone] Migration, Provider Unavailable Unavailable Allergies Allergen (clinical drug ingredient) Drug/Non Drug Allergy documented on EMR Reaction Allergy Type Onset Date Status SULFA (uncoded) rash Allergy Acti ve [facility] VISIT [facility] Conversion Encounter Medications Medication SIG (Take, Route, Frequency, Duration) Notes Start Date End Date Status Levothyroxine Sodium 75 MCG 1 tab(s) ora lly once a day; Duration: 30 day(s) Active Encounters Encounter Location Date Provider Diagnosis [facility] [address] [facility] [address] [place] [address] 05/12/2024 Provider Migration Plan Of Treatment No Information Progress Notes * Keyona MICHELLE NDOB:1995 (29 yo F)Acc No.[id number]:05/12/2024 Patient: Keyona SOLIMAN Provider: Kiley enciso Migration :1995 A ge:29 Y S ex:Female Date:05/12/2024 Address[place] [place], [place] Pcp:Chago Ireland Subjective: * Chief Complaints: * [facility] . [facility] * Medical History: * Medications: T aking Levothyroxine Sodium 75 MCG Tablet 1 tab(s) orally once a day * Allergies: S ULFA: rash. Objective: * Vitals: Assessment: Plan: * Treatment: * * Electronic signature of Prov ider Migration on 01/28/2025 at 01:40 PM EST Sign off status: Pending * Provider: Kiley enciso Migration Date: 0 05/12/2024 Generated for Rita thomas/Tr/Radhasmhever on: 1 03/31/2024 01:40 PM EST
--- NOTE | 2025-01-28 13:30 | US_ITS ---
PROCEDURE: US OB FOLLOW UP CLINICAL INDICATION: cardiac views and position COMPARISON: US US OB /MATERNAL DETAIL from 01/07/2025 US US OB TRANSVAGINAL from 01/14/2025 FINDINGS: Transabdominal sonographic images of the pelvis were obtained. The following parameters are obtained: From her established due date she is 23weeks 0 days Viable fetus in the cephalic presentation with a posterior placenta grade 1. The cervix measures 2.84 cm-3.84 cm measured transvaginally. heart rate: 153bpm bpm. BPD: 23weeks 4days HC: 23weeks 1day AC: 23weeks 0 days FL: 24weeks 0 days HC/AC: 1.16 FL/BPD: 0.75 FL/AC: 0.24 Growth percentile: 62 Amniotic fluid: Subjectively appears normal No obvious anomalies evident. profile seen, stomach, bladder, kidneys, three-vessel cord, four chamber heart appear normal. heart: LVOT, RVOT, 3 vessel view, four-chamber heart appear normal. Kidneys: There is mild bilateral renal pelvis dilation measuring 3.9 mm and 4.2 mm. IMPRESSION: 1. Viable fetus in the cephalic presentation with a posterior placenta grade 1. 2. The fluid is within normal limits with when analyzed subjectively. 3. Limited anatomical scan appears normal. The cardiac views today appear normal. 4. There is mild bilateral renal pelvis dilation measuring 3.9 mm and 4.2 mm. Suggest repeat scan at 28 weeks. 5. biometry is consistent with the dates. Dictated by: Curt Tovar MD 01/29/2025 03:25 Curt Tovar MD in [place] 01/29/2025 03:25
--- OUTSIDE RECORDS SUMMARY | 2025-01-28 13:40 | XMS_ITS | Patient Health Record ---
Author Organization [facility] Address [address] [place] [address] Care Team Providers Care Program Scheduler Name Role Phone Chago Ireland Primary Care Provider [phone] Roxanne Pina Unavailable [phone] Leeanne Hidalgo Unavailable [phone] Migration, Provider Unavailable Unavailable Allergies Allergen (clinical [...] date:09/04/2024 09:10:51 AM Interpretation: Performing Lab: Notes/Report: [address] [place] [id number] Name: HUGO MICHELLE Exam Date: 09/03/2024 : 1995 Age 29 years Gender: F Physician: ELEANNE PHILIP Facility: [facility] Facility HSV: Outpatient Exam: US [...] Thank you for referring HUGO MICHELLE to [facility]. Legally authenticated by OH LAO MD 2024-09-03 10:51:08 TSH W/REFLEX TO FT4 (82464) Reviewed date:08/27/2024 10:04:33 AM Interpretation: Performing Lab:[facility] [address]va[address] [employer], [facility] Hospital[facility]eksFY[address] Asa Browne Notes/Report: NON-FASTING; NON-FASTING; NON-FASTING TSH W/REFLEX TO FT4 2.75 Reference Range > or = 20 Years 0.40-4.50 Ranges First trimester 0.26-2.66 Second trimester 0.55-2.73 Third trimester 0.43-2.91 CBC (INCLUDES DIFF/PLT) (639 9) Reviewed date:08/27/2024 10:04:33 AM Interpretation: Performing Lab:[facility] Sasa[address] [employer] [address]i, HostwayPxkkJE[address] Asa Browne Notes/Report: NON-FASTING; NON-FASTING; NON-FASTING WHITE [...] MPV 9.5 7.5-12.5 fL ABSOLUTE NEUTROPHILS 2826 5036-5901 cells/uL ABSOLUTE LYMPHOCYTES 2580 850-3900 cells/uL ABSOLUTE MONOCYTES 402 200-950 cells/uL ABSOLUTE EOSINOPHILS 162 15-500 cells/uL ABSOLUTE BASOPHILS 30 0-200 cells/uL NEUTROPHILS 47.1 LYMPHOCYTES 43.0 MONOCYTES 6.7 EOSINOPHILS 2.7 BASOPHILS 0.5 [address] METABOLIC PANE L (68146) Reviewed date:08/27/2024 10:04:33 AM Interpretation: Performing Lab:[facility], [facility], [facility] HospitalRuapHT[address] Asa Browne Notes/Report: NON-FASTING; NON-FASTING; NON-FASTING GLUCOSE [...] Vaccine Route Administration Date Status Comme nts Flublok IM Intramuscular 01/22/2020 Administered Fluvirin--Influenza vaccine 3+ year Unknown 11/08/2008 Administered Fluvirin--Influenza vaccine 3+ year IM Intramuscular 12/03/2009 Administered Fluvirin--Influenza vaccine 3+ year IM Intramuscular 11/13/2010 Administered Fluvirin--Influenza vaccine 3+ year IM Intramuscular 11/19/2011 Administered H1N1 Vaccine IM Intramuscular 01/11/2009 Administered Problems Problem Type SNOMED Code ICD Code Onset Dates Problem Status W/U Status Risk Notes Problem Gastroesophageal reflux disease (608486627) GERD without esophagitis (K21.9) Active confirmed Problem Allergic rhinitis (97185807) Chronic allergic rhinitis (J30.9) Active confirmed Problem Migraine without aura, not refractory (965568908) Migraine without aura and without status migrainosus, not intractable (G43.009) Active confirmed Problem Amenorrhea (25548961) Amenorrhea (N91.2) Active confirmed Problem Non-toxic single thyroid nodule (306476662) Left thyroid nodule (E04.1) Active confirmed Problem Hypothyroidism (42602688) Unspecified hypothyroidism (E03.9) Active confirmed Problem Anxiety depression (836062997) Anxiety with depression (F41.8) Active confirmed Problem Autoimmune 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) 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 Vital Signs Heart Rate 88 /min 08/31/2024 Temperature 97.9 degrees Fahrenheit 10/09/2024 Blood pressure diastolic 80 mm Hg 08/31/2024 Height 62 in 10/09/2024 Blood pressure systolic 125 mm Hg 08/31/2024 Weight 134 lbs 10/09/2024 BMI 24.51 kg/m2 10/09/2024 Encounters Encounter Location Date Provider Diagnosis Paulie [facility]ACIO [place] [address] [facility] [address] [place] [address] 05/12/2024 Provider Migration Paulie [facility]ACIO [facility] [address] [facility] [address] [place] [address] 06/14/2024 Roxanne Pina Bilateral acute otit is media H66.93 and Acute non-recurrent frontal sinusitis J01.10 [facility] [address] [address] 08/24/2024 Leeanne McNees GERD without esophagitis K21.9 ; Epigastric pain R10.13 ; Autoimmune hypothyroidism E06.3 and Fatigue, unspecified type R53.83 Paulie Ferris [facility] [address] [address] 08/31/2024 Leeanne McNees Epigastric pain R10. 13 ; GERD without esophagitis K21.9 ; Right flank pain R10.9 ; Nausea R11.0 and Chronic constipation K59.09 Paulie [facility] [address] [place] [address] [address] [place] [address] 10/09/2024 Roxanne Pina Acute rhinosinusitis J01.90 and [...] likely as UA with neg for blood. Munday diet. Start MiraLAX daily. Abd US on Tuesday. Sooner return precautions discussed 08/31/2024 GERD without esophagitis (ICD-10 - K21.9) 10/09/2024 Chronic allergic rhinitis (ICD-10 - J30.9) 10/09/2024 Acute rhinosinusitis (ICD-10 - J01.90) recommend plain mucinex and loratadine once a day, tylenol if needed for pain, discussed importance of good fluid intake, may use saline rinses as needed as well. antibiotics if symptoms progress or persist. return precautions reviewed. 08/31/2024 Right flank pain (ICD-10 - R10.9) 08/31/2024 Nausea (ICD-10 - R11.0) 08/24/2024 Autoimmune hypothyroidism (ICD-10 - E06.3) 08/31/2024 Chronic constipation (ICD-10 - K59.09) 08/24/2024 Fatigue, unspecified type (ICD-10 - R53.83) Labs drawn to r/o underlying pathology 08/31/2024 Other Plan Of Treatment Pending Test Test Name Order Date H-H.PYLORI ANTIGEN 11/29/2012 M-Free T4 (Free Thyroxine) 08/29/2019 M-Thyroid Stimulating Hormone 08/29/2019 E-Anbd-Duyjbjsubfjzk Antibody 08/28/2018 Insurance Providers Payer Name Payer Address Payer Phone Subscriber Number Group Number Insured Name Patient Relationship to Insured Coverage Start Date Coverage End Date [facility] [address] [place] [address] [id number] Hugo Michelle Self - patient is the insured Medications Administered Medication Instructions Date of Administration Dosage Notes Dexamethasone 4mg Injection 05/28/2021 4 mg Promethazine HCL 02/15/2013 Medical (General) History Medical History History ICD Code ADD GERD Autoimmune Hypothyroidism Surgical History Surgery Date(Month/Year) wisdom teeth
--- OUTSIDE RECORDS SUMMARY | 2025-01-28 13:40 | XMS_ITS | Encounter Summary ---
Author Organization [place] [address] Care Team Providers Care Want Ad Supervisor Name Role Phone Nabila Cruz Primary Care Provider Alexandra freeman Encounter Details Date Type Department Care Team (Late Contact Info) Description 11/19/2024 Results Follow-Up [facility] [address] [place] [phone] Paramjit Kuo MD [address] [place] [address] T3 FREE, T4, FREE (THYROXINE), THYROID STIMULATING [...] Description 06/26/2025 10:00 AM EDT Office Visit [facility] [address] [address] Paramjit Kuo MD [address] [place] [address] documented as of this encounter Visit Diagnoses Not on filedocumented in this encounter Care Teams Want Ad Supervisor Relationship Specialty Start Date End Date Nabila Cruz PCP - General 05/25/21 documented as of this encounter
--- OUTSIDE RECORDS SUMMARY | 2025-01-28 13:40 | XMS_ITS | Clinical Summary ---
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 Discharge Disposition: Home or Self Care 11/19/2024 Results Follow-Up [place] [address] [facility] [address] [place] [address] Paramjit Kuo MD T3 FREE, [...] AM EDT Office Visit [facility] Diabetes [place] [address] [facility] [address] [place] [address] Paramjit Kuo MD [address] [place] [address] Health Maintenance Due Date Last Done Comments [...] - 4.40 pg/mL 11/19/2024 5:43 PM EDT [facility] Blood VENOUS BLOOD / Unknown Venipuncture / Unknown 11/19/2024 11:26 AM EDT 11/19/2024 11:26 AM EDT Narrative PREFERRED [employer] - 11/19/2024 5:43 PM EDT Ingestion of dav doses of biotin (>5 mg/day) taken within 8 hours of drawing blood sample can interfere with this immunoassay test. Paramjit Kuo MD CHEMISTRY ORDERABLES Final Re sult Performing Organization Address [facility] Co de Phone Number I Do Venues [facility] [address] [facility] , [place] [phone] * THYROID STIMULATING HORMONE (11/19/2024 11:26 AM EDT) TSH 1.620 0.270 - 4.200 mcIU/mL 11/19/2024 5:43 PM EDT PREFERRED [facility] Blood VENOUS BLOOD / Unknown Venipuncture / Unknown 11/19/2024 11:26 AM EDT 11/19/2024 11:26 AM EDT Narrative [facility] - 11/19/2024 5:43 PM EDT Ingestion of dav doses of biotin (>5 mg/day) taken within 8 hours of drawing blood sample can interfere with this immunoassay test. Paramjit Kuo MD CHEMISTRY ORDERABLES Final Re sult Performing Organization Address [facility] de Phone Number [facility] [address] [facility] , [place] [address] * T4, FREE (THYROXINE) (11/19/2024 11:26 AM EDT) Pathologist [facility] Free T4 1.15 0.80 - 1.80 ng/dL 11/19/2024 5:43 PM EDT [facility] Blood VENOUS BLOOD / Unknown Venipuncture / Unknown 11/19/2024 11:26 AM EDT 11/19/2024 11:26 AM EDT Narrative [facility] - 11/19/2024 5:43 PM EDT Ingestion of dav doses of biotin (>5 mg/day) taken within 8 hours of drawing blood sample can interfere with this immunoassay test. Paramjit Kuo MD CHEMISTRY ORDERABLES Final Re sult Performing Organization Address [facility] Co de Phone Number [facility] [address] [facility] , [place] [address] from Last 3 Months Insurance [employer] Care Teams Captain/Airline Pilot Relationship Specialty Start Date End Date Nabila Cruz PCP - General 05/25/21
== END 2025-01-28 23:59 | disposition home or self-care (01) ==
LOC: RAD 13:33
PROVIDERS: PCP Nurse Practitioner Family; Visit Provider Obstetrics & Gynecology
DX: O28.3 Abnormal ultrasonic finding on antenatal screening of mother (principal); O99.282 Endocrine, nutritional and metabolic diseases complicating pregnancy, second trimester; O09.292 Supervision of pregnancy with other poor reproductive or obstetric history, second trimester; O26.872 Cervical shortening, second trimester; O99.891 Other specified diseases and conditions complicating pregnancy; E03.9 Hypothyroidism, unspecified; Z14.8 Genetic carrier of other disease; Z3A.23 23 weeks gestation of pregnancy
CPT/HCPCS: 76816; 76817

== ENCOUNTER 2025-02-02 00:59 | Emergency (ER) | payer OTHER, SELFPAY ==
--- OUTSIDE RECORDS SUMMARY | 2024-05-12 16:30 | XMS_ITS ---
Author Organization [facility] Address [address] [facility] [address] [facility] [address] [place] [address] Care Team Providers Care Early Childhood Education Instructor Name Role Phone Chago Ireland Primary Care Provider Roxanne Pina Unavailable [phone] Migration, Provider Unavailable Unavailable Allergies Allergen (clinical drug ingredient) Drug/Non Drug Allergy documented on EMR Reaction Allergy Type Onset Date Status Substance with sulfonamide structure and antibacterial mechanism of action (substance) SULFA (uncoded) rash Allergy Active REASON FOR VISIT [facility] To [facility] Conversion Encounter Medications Medication SIG (Take, Route, Frequency, Duration) Notes Start Date End Date Status Levothyroxine Sodium 75 MCG Tablet 1 tab(s) orally once a day; Duration: 30 day(s) Active Encounters Encounter Location Date Provider Diagnosis [facility] [address] [facility] [address] [facility] [address] [place] [address] 05/12/2024 Provider Migration Plan Of Treatment No Information Progress Notes * Keyona MICHELLE NDOB:1995 (29 yo F)Acc No.[id number]:05/12/2024 Patient: Keyona Dale Reddy Provider: Kiley enciso Migration :1995 A ge:29 Y S ex:Female Date:05/12/2024 Address:[address] [place], [place] Pcp:Chago Ireland Subjective: * Chief Complaints: * [facility] Conversion Encounter * Medications: T akingLevothyroxine Sodium 75 MCG Tablet 1 tab(s) orally once a day Taking Levothyroxine Sodium 75 MCG Tablet 1 tab(s) orally once a day * Allergies: S ULFA: rash * Electronic signature of Prov ider Migration on 02/02/2025 at 01:08 AM EST Sign off status: Pending * Provider: Kiley enciso Migration Date: 0 05/12/2024 Generated for Rita thomas/Tr/Shanna on: 1 04/05/2024 01:08 AM EST
[2025-02-02 01:01] VITALS: BP 109/71; PULSE 95; RESP 16; TEMP 36.6; O2SAT 100; BMI 25.6
--- OUTSIDE RECORDS SUMMARY | 2025-02-02 01:08 | XMS_ITS | Clinical Summary ---
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 Discharge Disposition: Home or Self Care 11/19/2024 Results Follow-Up [place] [address] [facility] [address] [place] [address] Paramjit Kuo MD T3 FREE, [...] AM EDT Office Visit [facility] Diabetes [place] [address] [facility] [address] [place] [address] Paramjit Kuo MD [address] [place] [address] Health Maintenance Due Date Last Done Comments [...] - 4.40 pg/mL 11/19/2024 5:43 PM EDT [facility] Blood VENOUS BLOOD / Unknown Venipuncture / Unknown 11/19/2024 11:26 AM EDT 11/19/2024 11:26 AM EDT Narrative PREFERRED [employer] - 11/19/2024 5:43 PM EDT Ingestion of dav doses of biotin (>5 mg/day) taken within 8 hours of drawing blood sample can interfere with this immunoassay test. Paramjit Kuo MD CHEMISTRY ORDERABLES Final Re sult Performing Organization Address [facility] Co de Phone Number [facility] [employer] [facility] [address] [facility] [address] [address] , [place] [phone] * THYROID STIMULATING HORMONE (11/19/2024 11:26 AM EDT) TSH 1.620 0.270 - 4.200 mcIU/mL 11/19/2024 5:43 PM EDT PREFERRED [employer] Blood VENOUS BLOOD / Unknown Venipuncture / Unknown 11/19/2024 11:26 AM EDT 11/19/2024 11:26 AM EDT Narrative [employer] - 11/19/2024 5:43 PM EDT Ingestion of dav doses of biotin (>5 mg/day) taken within 8 hours of drawing blood sample can interfere with this immunoassay test. Paramjit Kuo MD CHEMISTRY ORDERABLES Final Re sult Performing Organization Address [facility] de Phone Number [facility] [address] [facility] , [place] [address] * T4, FREE (THYROXINE) (11/19/2024 11:26 AM EDT) Pathologist [facility] [place] Free T4 1.15 0.80 - 1.80 ng/dL 11/19/2024 5:43 PM EDT [facility] Blood VENOUS BLOOD / Unknown Venipuncture / Unknown 11/19/2024 11:26 AM EDT 11/19/2024 11:26 AM EDT Narrative [employer] - 11/19/2024 5:43 PM EDT Ingestion of dav doses of biotin (>5 mg/day) taken within 8 hours of drawing blood sample can interfere with this immunoassay test. Paramjit Kuo MD CHEMISTRY ORDERABLES Final Re sult Performing Organization Address [facility] Co de Phone Number [facility] [address] , [place] [address] from Last 3 Months Insurance [employer] Care Teams Expense Clerk Relationship Specialty Start Date End Date Nabila Cruz PCP - General 05/25/21
--- OUTSIDE RECORDS SUMMARY | 2025-02-02 01:08 | XMS_ITS | Encounter Summary ---
Author Organization [place] [address] Care Team Providers Care Boarder Hand Name Role Phone Nabila Cruz Primary Care Provider Alexandra freeman Encounter Details Date Type Department Care Team (Late Contact Info) Description 11/19/2024 Results Follow-Up [facility] [address] [place] [phone] Paramjit Kuo MD [address] [place] [address] T3 FREE, T4, FREE (THYROXINE), THYROID STIMULATING [...] Description 06/26/2025 10:00 AM EDT Office Visit [facility] [address] [address] Paramjit Kuo MD [address] [place] [address] documented as of this encounter Visit Diagnoses Not on filedocumented in this encounter Care Teams Boarder Hand Relationship Specialty Start Date End Date Nabila Cruz PCP - General 05/25/21 documented as of this encounter
--- OUTSIDE RECORDS SUMMARY | 2025-02-02 01:08 | XMS_ITS | Patient Health Record ---
Author Organization [facility] Address [address] [place] [address] [place] [address] Care Team Providers Care Sports Journalist Name Role Phone Chago Ireland Primary Care Provider Roxanne Pina Unavailable [phone] Leeanne Hidalgo Unavailable [phone] Migration, Provider Unavailable Unavailable Allergies Allergen (clinical drug ingredient) Drug/Non Drug Allergy documented on EMR Reaction Allergy Type Onset Date Status Substance with sulfonamide structure and antibacterial mechanism of action (substance) SULFA (uncoded) rash Allergy Active Results Component Value Reference Range Flag Notes COMPREHENSIVE METABOLIC PANE L (23187) Reviewed date:08/27/2024 10:04:33 AM Interpretation: Performing Lab:CB, [facility] [address], [facility] Asa Browne Notes/Report: NON-FASTING; NON-FASTING; NON-FASTING GLUCOSE 67 65-99 mg/dL N Fasting reference interval UREA NITROGEN (BUN) 13 7-25 mg/dL N CREATININE 0.86 0.50-0.96 mg/dL N EGFR 94 > OR = 60 mL/min/1.73m2 N BUN/CREATININE RATIO SEE NOTE: 6-22 (calc) Not Reported: BUN and Creatinine are within reference range. SODIUM 141 135-146 mmol/L N POTASSIUM 4.3 3.5-5.3 mmol/L N CHLORIDE 103 98-110 mmol/L N CARBON DIOXIDE 30 20-32 mmol/L N CALCIUM 9.8 8.6-10.2 mg/dL N PROTEIN, TOTAL 7.8 6.1-8.1 g/dL N ALBUMIN 4.9 3.6-5.1 g/dL N GLOBULIN 2.9 1.9-3.7 g/dL (calc) N ALBUMIN/GLOBULIN RATIO 1.7 1.0-2.5 (calc) N BILIRUBIN, TOTAL 0.7 0.2-1.2 mg/dL N ALKALINE PHOSPHATASE 90 31-125 U/L N AST 13 10-30 U/L N ALT 10 6-29 U/L N CBC (INCLUDES DIFF/PLT) (639 9) Reviewed date:08/27/2024 10:04:33 AM Interpretation: Performing Lab:CB, [facility] [id number] [id number] Asa Browne Notes/Report: NON-FASTING; NON-FASTING; NON-FASTING WHITE BLOOD CELL COUNT 6.0 3.8-10.8 Thousand/uL N RED BLOOD CELL COUNT 4.71 3.80-5.10 Million/uL N HEMOGLOBIN 14.0 11.7-15.5 g/dL N HEMATOCRIT 43.5 35.0-45.0 % N MCV 92.4 80.0-100.0 fL N MCH 29.7 27.0-33.0 pg N MCHC 32.2 32.0-36.0 g/dL N For adults, a slight decrease in the calculated MCHC value (in the range of 30 to 32 g/dL) is most likely not clinically significant; however, it should be interpreted with caution in correlation with other red cell parameters and the patient's clinical condition. RDW 12.5 11.0-15.0 % N PLATELET COUNT 278 140-400 Thousand/uL N MPV 9.5 7.5-12.5 fL N ABSOLUTE NEUTROPHILS 2826 5694-5370 cells/uL N ABSOLUTE LYMPHOCYTES 2580 850-3900 cells/uL N ABSOLUTE MONOCYTES 402 200-950 cells/uL N ABSOLUTE EOSINOPHILS 162 15-500 cells/uL N ABSOLUTE BASOPHILS 30 0-200 cells/uL N NEUTROPHILS 47.1 N LYMPHOCYTES 43.0 N MONOCYTES 6.7 N EOSINOPHILS 2.7 N BASOPHILS 0.5 N TSH W/REFLEX TO FT4 (57954) Reviewed date:08/27/2024 10:04:33 AM Interpretation: Performing Lab:[facility], [facility] [address], [place] DhilMU[address] Asa Browne Notes/Report: NON-FASTING; NON-FASTING; NON-FASTING TSH W/REFLEX TO FT4 2.75 N Reference Range > or = 20 Years 0.40-4.50 Ranges First trimester 0.26-2.66 Second trimester 0.55-2.73 Third trimester 0.43-2.91 US ABD Reviewed date:09/04/2024 09:10:51 AM Interpretation: Performing Lab: Notes/Report: [address] [place] [address] Name: HUGO MICHELLE Exam Date: 09/03/2024 : [...] Thank you for referring HUGO MICHELLE to [facility]. Legally authenticated by [place] LAO MD 2024-09-03 10:51:08 Urinalysis Reviewed date:09/03/2024 09:10:37 AM Interpretation: Performing Lab: Notes/Report: Color/Clarity yellow Leuk neg Nitrite neg Urobili 0.2 Protein neg pH 6.0 Blood neg Sp. Gr. 1.010 Ketone neg Bili neg Glucose neg Medications Medication SIG (Take, Route, Frequency, Duration) Notes Start Date End Date Status Levothyroxine Sodium 88 MCG Capsule 1 tab(s) orally once a day; Duration: 30 days Active Famotidine 20 MG Tablet 1 tablet Orally twice a day; Duration: 30 days 08/24/2024 Active Immunizations Vaccine Route Administration Date Status Comme nts H1N1 Vaccine IM Intramuscular 01/11/2009 Administered Fluvirin--Influenza vaccine 3+ year Unknown 11/08/2008 Administered Fluvirin--Influenza vaccine 3+ year IM Intramuscular 12/03/2009 Administered Fluvirin--Influenza vaccine 3+ year IM Intramuscular 11/13/2010 Administered Fluvirin--Influenza vaccine 3+ year IM Intramuscular 11/19/2011 Administered Flublok IM Intramuscular 01/22/2020 Administered Social History Social History Additional Details Category Social Info Options Details Social History Travel outside [place]: no Alcohol: no Sexually active: no Recreational drug use: no Exercise: yes New since last visit: none Home smoke detector use: yes Caffeine: yes less than daily Living Will No Problems Problem Type SNOMED Code ICD Code Onset Dates Problem Status W/U Status Risk Notes Problem Gastroesophageal reflux disease (980725947) GERD without esophagitis (K21.9) Active confirmed Problem Allergic rhinitis (81432645) Chronic allergic rhinitis (J30.9) Active confirmed Problem Migraine without aura, not refractory (165760471) Migraine without aura and without status migrainosus, not intractable (G43.009) Active confirmed Problem Amenorrhea (51894152) Amenorrhea (N91.2) Active confirmed Problem Non-toxic single thyroid nodule (549977620) Left thyroid nodule (E04.1) Active confirmed Problem Hypothyroidism (43781219) Unspecified hypothyroidism (E03.9) Active confirmed Problem Anxiety depression (608909884) Anxiety with depression (F41.8) Active confirmed Problem Autoimmune hypothyroidism (787003786) 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 Vital Signs Heart Rate 88 /min 08/31/2024 Temperature 97.9 degrees Fahrenheit 10/09/2024 Blood pressure diastolic 80 mm Hg 08/31/2024 Height 62 in 10/09/2024 Blood pressure systolic 125 mm Hg 08/31/2024 Weight 134 lbs 10/09/2024 BMI 24.51 kg/m2 10/09/2024 Encounters Encounter Location Date Provider Diagnosis [facility] [address] [facility] [address] [place], [place] [address] 05/12/2024 Provider Migration [facility] [address] [facility] [address] [place], [place] [address] 06/14/2024 Roxanne Pina Bilateral acute otit is media H66.93 and Acute non-recurrent frontal sinusitis J01.10 [facility] [address] [address] 08/24/2024 Leeanne McNees GERD without esophagitis K21.9 ; Epigastric pain R10.13 ; Autoimmune hypothyroidism E06.3 and Fatigue, unspecified type R53.83 [facility] [address] [address] 08/31/2024 Leeanne McNees Epigastric pain R10. 13 ; GERD without esophagitis K21.9 ; Right flank pain R10.9 ; Nausea R11.0 and Chronic constipation K59.09 [facility] [address] [place] [address] 10/09/2024 Roxanne Pina Acute rhinosinusitis J01.90 and Chronic allergic rhinitis J30.9 Assessments Encounter Date Diagnosis (ICD Code) Assessment Notes Treatment Notes Treatment Clinical Notes Section Notes 08/24/2024 Epigastric pain (ICD-10 - R10.13) Likely related to GERD/gastritis, see plan above 08/24/2024 GERD without esophagitis (ICD-10 - K21.9) Discussed etiology of reflux. Start trial of H2 ravi as stated above. Avoid certain foods that exacerbate symptoms, such as caffeine and spicy foods. RTC if no improvement. 10/09/2024 Chronic allergic rhinitis (ICD-10 - J30.9) 10/09/2024 Acute rhinosinusitis (ICD-10 - J01.90) recommend plain mucinex and loratadine once a day, tylenol if needed for pain, discussed importance of good fluid intake, may use saline rinses as needed as well. antibiotics if symptoms progress or persist. return precautions reviewed. 08/31/2024 Epigastric pain (ICD-10 - R10.13) Unique presentation with unremarkable labs, UA and exam. May be related to GB disease, gastritis/GERD, constipation, muscle spasm or kidney stone or though less likely as UA with neg for blood. Erath diet. Start MiraLAX daily. Abd US on Tuesday. Sooner return precautions discussed 08/31/2024 GERD without esophagitis (ICD-10 - K21.9) 06/14/2024 Bilateral acute otitis media (ICD-10 - H66.93) Determined to have otitis media from physical examination findings above. Prescription written for antibiotic above. Return precautions discussed with family. All questions answered. 06/14/2024 Acute non-recurrent frontal sinusitis (ICD-10 - J01.10) Encouraged daily antihistamine and fluticasone routinely during this exacerbation of symptoms 08/31/2024 Right flank pain (ICD-10 - R10.9) 08/24/2024 Autoimmune hypothyroidism (ICD-10 - E06.3) 08/31/2024 Nausea (ICD-10 - R11.0) 08/31/2024 Chronic constipation (ICD-10 - K59.09) 08/24/2024 Fatigue, unspecified type (ICD-10 - R53.83) Labs drawn to r/o underlying pathology Plan Of Treatment Pending Test Test Name Order Date H-H.PYLORI ANTIGEN 11/29/2012 M-Free T4 (Free Thyroxine) 08/29/2019 M-Thyroid Stimulating Hormone 08/29/2019 N-Jdhp-Uqkkncdtdxlwv Antibody 08/28/2018 Insurance Providers Payer Name Payer Address Payer Phone Subscriber Number Group Number Insured Name Patient Relationship to Insured Coverage Start Date Coverage End Date [facility] [address] [place] [address] [phone] [id number] Hugo Michelle Self - patient is the insured Medications Administered Medication Instructions Date of Administration Dosage Notes Dexamethasone 4mg Injection 05/28/2021 4 mg Promethazine HCL 02/15/2013 Medical (General) History Medical History History ICD Code ADD GERD Autoimmune Hypothyroidism Surgical History Surgery Date(Month/Year) wisdom teeth
--- OUTSIDE RECORDS SUMMARY | 2025-02-02 01:08 | XMS_ITS | Data Portability ---
Author Organization Critical access hospital Address Hua Freitas [facility] [place] [address] Assessment Encounter Date Assessment Date Assessment LastModified by Organization Details LastModified Time 04/07/2021 04/07/2021 -Medications were reviewed and any necessary updates and renewals were made, patient instructed to complete as prescribed. -The potential side effects of medications were discussed. -Counseling was done on care goals and ways to prevent future hospitalization s. -Further treatment per orders listed below. [email or web address] Not available 04/07/2021 14:58:20 03/03/2023 03/03/2023 Reproductive life plan discussed. Patient does plan to have children in the future. control offered. Patient declined. Domestic abuse counseling done. Fliers for domestic abuse centers posted in patient waiting rooms and bathrooms. [email or web address] Not available 03/03/2023 17:23:54 Plan of Treatment Reminders Order Date Submit Date Provider Last Modified By Organization Details Last Modified Time Details Appointments None recorded. Lab bacterial vaginosis + vaginitis panel, vaginal 2020 021 COLETTE [facility], [address], [place] [address], [place], [address], 10:37:35 bacterial vaginosis + vaginitis panel, vaginal 2020 021 [facility] [facility], [address], [place] [address], [place], [address], 22:06:59 Referral None recorded. Procedures None recorded. Surgeries None recorded. Imaging None recorded. Medication Orders ibuprofen 600 mg tablet 2023 024 COLETTE [facility] [place], [address], 4 14:11:38 folic acid 800 mcg tablet [address] [place], [address], 4 13:41:19 28 mg iron-800 mcg tablet [address] [facility] [place], [address], 4 13:41:29 Balcoltra 0.1 mg-0.02 mg (21)/iron (7) tablet 2020 021 [email or web address] [facility] [address] [place], [address], 14:55:57 Patient TargetsNo targets recorded. Patient Instructions Encounter Date Encounter Id Patient Instructions Last Modified By Organization Details Last Modified Time 04/28/2020 [id number] May use ibuprofe n as needed for cramping. Keep follow up appt with Nyasia MARTE. If you have any questions or concerns call pp. 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 Bina [email or web address] Not available 03/09/2023 22:04:55 See HPI Encourag e ibuprofen as discussed F/u if s/s not improved or prn additional concerns [email or web address] Not available 03/03/2023 17:24:25 Treatment option s for heavy menstrual bleeding and painful cycles discussed including regular dosed NSAIDS, initiating hormonal therapy, inserting a progestin releasing IUD, minor surgery (D&C, endometrial ablation) and major surgery (hysterectomy). Risks, benefits, and alternatives to all therapies discussed. She chooses NSAIDs. [email or web address] Not available 03/03/2023 17:24:44 Reason for Referral None Reported. Results Created Date Observation Date Name Description Value Unit Range Abnormal Flag Note LastModifiedBy Organization Detail LastModifiedTime 05/07/19 21 05/08/2020 bacte rial vagin osis + vagin itis panel , vagin al atopobium vaginae High - 2 score abnormal Not Available [facility] ([facility]) [address] [place], [address], 05/08/2020 22:06:58 05/07/19 21 05/08/2020 bacte rial vagin osis + vagin itis panel , vagin al bvab 2 High - 2 score abnormal Not Available [facility] ([facility]) [address] [facility], [place], [address], 05/08/2020 22:06:58 05/07/19 21 05/08/2020 bacte rial [...] has not been clear ed or appro aldonna by the Food and Drug Admin istra tion. Not Available [facility] ([facility]) [address] [place], [address], 05/08/2020 22:06:58 05/07/19 21 05/08/2020 bacte rial vagin osis + vagin itis panel , vagin al carolyn albicans, DELORES Negati ve negati ve Not Available [facility] ([facility]) [address] [place], [address], 05/08/2020 22:06:58 05/07/19 21 05/08/2020 bacte rial vagin osis + vagin itis panel , vagin al carolyn glabrata, DELORES Negati ve negati ve Not Available [facility] ([facility]) [address] [place], [address], 05/08/2020 22:06:58 05/07/19 21 05/08/2020 bacte rial vagin osis + vagin itis panel , vagin al trich vag by DELORES Negati ve negati ve Not Available [facility] ([facility]) [address] [place], [address], 05/08/2020 22:06:58 05/07/19 21 05/08/2020 bacte rial vagin osis + vagin itis panel , vagin al chlamydia trachomatis, DELORES Positi ve negati ve abnormal Not Available [facility] ([facility]) [address] [place], [address], 05/08/2020 22:06:58 05/07/19 21 05/08/2020 bacte rial vagin osis + vagin itis panel , vagin al neisseria gonorrhoeae, DELORES Negati ve negati ve Not Available [facility] ([facility]) [address] [place], [address], 05/08/2020 22:06:58 06/24/19 21 06/25/2020 bacte rial vagin osis + vagin itis panel , vagin al atopobium vaginae High - 2 score abnormal Not Available [facility] ([facility]) [address] [facility], [place], [address], 06/26/2020 10:37:35 06/24/19 21 06/25/2020 bacte rial vagin osis + vagin itis panel , vagin al bvab 2 Low - 0 score Not Available [facility] ([facility]) [address] [facility], [place], [address], 06/26/2020 10:37:35 06/24/19 21 06/25/2020 bacte rial [...] Drug Admin istra tion. Not Available [facility] ([facility]) [address] [facility], [place], [address], 06/26/2020 10:37:35 06/24/19 21 06/26/2020 bacte rial vagin osis + vagin itis panel , vagin al carolyn albicans, DELORES Positi ve negati ve abnormal Not Available [facility] ([facility]) [address] [facility], [place], [address], 06/26/2020 10:37:35 06/24/19 21 06/26/2020 bacte rial vagin osis + vagin itis panel , vagin al carolyn glabrata, DELORES Negati ve negati ve Not Available [facility] ([facility]) [address] [facility], [place], [address], 06/26/2020 10:37:35 06/24/19 21 06/26/2020 bacte rial vagin osis + vagin itis panel , vagin al trich vag by DELORES Negati ve negati ve Not Available [facility] ([facility]) [address] [facility], [place], [address], 06/26/2020 10:37:35 06/24/19 21 06/26/2020 bacte rial vagin osis + vagin itis panel , vagin al chlamydia trachomatis, DELORES Negati ve negati ve Not Available [facility] ([facility]) [address] [facility], [place], [address], 06/26/2020 10:37:35 06/24/19 21 06/26/2020 bacte rial vagin osis + vagin itis panel , vagin al neisseria gonorrhoeae, DELORES Negati ve negati ve Not Available [facility] ([facility]) [address] [facility], [place], [address], 06/26/2020 10:37:35 04/08/19 22 03/24/2021 medic al recor d reque st* No observ ation record ed. [facility] (Med Record) [address], [place], [address], 04/07/2021 16:28:44 Result Notes None recorded. Problems Name Problem SNOMED Code Status Onset Date Resolution Date Notes Provider Name and Address Organization Details Recorded Time Antenata l screenin g Completed [x] Quad Screen negative US 09/30 nl/compl ete MALE posterio r placenta Infusion Nurse [facility] [address], [place], [address] , [facility] - [facility] 8 15:09:56 Pregnanc y 45170268 Completed 201701/18/2018 Infusion Nurse [facility] [address], [place], [address] , [place] - [facility] 8 15:10:08 Active or passive immuniza tion Completed 201703/29/2019 Tdap @ 30 wks ___ FLu vaccine - 11/25/17 Nyadot Hale null, [place] - [facility] 0 13:16:07 Active or passive immuniza tion Completed 2017 Tdap @ 30 wks ___ FLu vaccine - 11/25/17 Infusion Nurse [facility] [address], [place], [address] , [place] - [facility] 8 15:09:57 Late entry into care 017415745 Completed 2017 16 weeks due to inabilit y to get insuranc e until then Infusion Nurse [facility] [address], [place], [address] , [place] - [facility] 8 15:09:57 Late entry into care 142631486 Completed 201701/18/2018 16 weeks due to inabilit y to get insuranc e until then Infusion Nurse [facility] [address], [place], [address] , [place] - [facility] 8 15:10:34 Normal pregnanc y 18498793 Completed 201701/18/2018 Infusion Nurse [facility] [address], [place], [address] , [place] - [facility] 8 15:10:37 Postpart [facility] 34117756 Completed 201703/29/2019 Nya Hale null, [place] - [facility] 0 13:16:02 Hyperten sive disorder 57165919 Completed 201703/29/2019 Nya Hale [place] - [facility] 0 13:16:05 Cyst of left ovary 59513272398 089569 Completed 202003/03/2023 Alexandra Ann, SOCIAL MEDIA MARKETING MANAGER [address], [place], [address] , [place] - [facility] 4 17:24:03 Chlamydi al infectio n 899893245 Completed 202006/20/2020 Nya Hale [place] - [facility] 12:27:37 History of chlamydi al infectio n 402633053 Completed 202003/03/2023 Denia Jarvis null, [place] - [facility] 4 13:41:41 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 Procedures Surgical History Date Name Laterality Status Provider Name and Address Organization Details Recorded Time 04/25/19 Diagnostic Laparoscopy completed Alexandra Ann APRN [address], [place], [address], [place] - [facility] 03/09/2023 22:03:40 04/08/19 22 Medication Reconcilliation completed Nya Hale [place] - [facility] 04/07/2021 14:58:20 09/10/19 Date of Last Pap Smear completed Alexandra Ann APRN [address], [place], [address], [place] [facility] 03/09/2023 22:05:12 04/29/19 21 [...] Name and Address Organization Details Recorded Time 19768 Substance with sulfonami de structure and antibacte rial mechanism of action (substanc e) medicatio n Not available Not available Not available 11/14/20152012 27923 8003 SNOMED Not Available [facility] 6 08:11:33 Medications Name Sig Start [...] Updated DateTime 03/03/2023 157.48 cm 25.8 kg/m2 16408.24 g 0 114/64 mm[Hg] Denia Jarvis [place] - [facility] 4 13:49:54 Date Recorded Body height Body mass index (BMI) Body weight Provider Name and Address Organization Details Last Updated DateTime 04/07/2021 157.48 cm 24.9 kg/m2 44890.56 g Nya Hale [place] - [facility] 04/07/2021 14:55:06 Date Recorded Body height Body mass index (BMI) Body weight Heart rate Oxygen saturation Respiratory rate Pain severity - 0-10 verbal numeric rating [Score] - Reported Systolic And Diastolic Provider Name and Address Organization Details Last Updated DateTime 157.48 cm 24.2 kg/m2 59831.5 9 g 101 /min 98 % 18 /min 3 130/82 mm[Hg] Heather Carbajal [place] - [facility] 11:03:21 Date Recorded Body height Body mass index (BMI) Body weight Systolic And Diastolic Provider Name and Address Organization Details Last Updated DateTime 05/06/2020 157.48 cm 24.1 kg/m2 77826.19 g 113/71 mm[Hg] Nya Hale [facility] 05/06/2020 09:58:01 Date Recorded Body height Body mass index (BMI) Body weight Systolic And Diastolic Provider Name and Address Organization Details Last Updated DateTime 06/23/2020 157.48 cm 24.5 kg/m2 23306.38 g 100/60 mm[Hg] Nyadot Hale [place] - [facility] 06/23/2020 15:47:58 Social History Question Answer Notes LastModified by Organization Details LastModified Time Tobacco Smoking Status Never Smoker Deloris leija [place] - [facility] 09/08/2017 09:43:53 Do You Have [...] Or The Highest Degree You Have Received? [id number] [email or web address] Information not available 03/29/2019 How Many Days Of Moderate To Strenuous Exercise, Like A Brisk Walk, Did You Do In The Last 7 Days? 1 Information not available 03/29/2019 On Those Days That You Engage In Moderate To Strenuous Exercise, How Many Minutes, On Average, Do You Exercise? 1 [email or web address] Information not available 03/29/2019 How Hard Is It For You To Pay For The Very Basics Like Food, Housing, Medical Care, And Heating? 1 [email or web address] Information not available 03/29/2019 Frequent Air Travel No Information not available 09/08/2017 High Blood Pressure No Information not available 09/08/2017 High Cholesterol No Informat ion not available 09/08/2017 High Number Of Sexual Partners No Information not available 09/08/2017 Illicit Drugs Pre- Denies Information not available 09/08/2017 Live Alone Or With Others? With Others Information not available 09/08/2017 Last Menstrual Period? 02/28/2023 [email or web address] Information not available 03/03/2023 Marital Status Informatio n not available 09/08/2017 What Was The Date Of Your Most Recent Tobacco Screening? 03/03/2023 [email or web address] Information not available 03/03/2023 How Many Children Do You Have? 1 [email or web address] Information not available 03/29/2019 Performs Monthly Self-breast Exam? No [email or web address] Information not available 03/29/2019 Do You Have Any Pets? Yes Information not available 09/08/2017 Do You Use Protection During Sex? No [email or web address] Information not available 05/06/2020 What Is Your Relationship Status? Single [email or web address] Information not available 03/03/2023 Seat Belts Used Routinely Yes Information not available 09/08/2017 Are You Sexually Active? No Not Currently [email or web address] Information not available 03/03/2023 Do You Have Smoke And Carbon Monoxide Detectors In Your Home? Yes Smoke Detectors No CO Detectors-n o Gas In The Home Information not available 09/08/2017 Are You Passively Exposed To Smoke? No Information not available 09/08/2017 How Much Tobacco Do You Smoke? No [email or web address] Information not available 03/29/2019 Smoking Pre- No Information not available 09/08/2017 General Stress Level Low [email or web address] Information not available 03/29/2019 Do You Use Sunscreen Routinely? No Information not available 09/08/2017 Has Tobacco Cessation Counseling Been Provided? No [email or web address] Information not available 03/03/2023 How Many Years Have You Smoked Tobacco? 0 [email or web address] Information not available 03/29/2019 Do You Have [...] Reported At Start Of This Visit? None [email or web address] Information not available 03/03/2023 What Contraceptive Method Was Reported At End Of This Visit? None [email or web address] Information not available 03/03/2023 Do You Want To Talk About Contraception Or Prevention During Your Visit Today? No - I Am Already Using Contraception Information not available 03/03/2023 Do You Have Any Future Plans To Get ? No, I Don't Want To Become Information not available 03/03/2023 Sex: Female Functional Status Question Answer Note LastModified by Organizat ion Details LastModified Time Do you or have you ever used smokeless tobacco? Never used smokeless tobacco [email or web address] Information not available 03/29/2019 Are you currently employed? Yes Information not available 09/08/2017 Urinary incontinence assessment performed? Yes [email or web address] Information not available 03/29/2019 Are you able to care for yourself independently? Yes [email or web address] Information not available 03/03/2023 Do you have difficulty dressing, bathing, grooming, or toileting? No Information not available 09/08/2017 Do you or have you ever used e-cigarettes or vape? Never used electronic cigarettes [email or web address] Information not available 03/29/2019 What is your exercise level? Occasional Information not available 09/08/2017 Do you use any illicit or recreational drugs? No [email or web address] Information not available 03/03/2023 Do you or have you ever used any other forms of tobacco or nicotine? No [email or web address] Information not available 04/07/2021 What is your level of alcohol consumption? None Information not available 09/08/2017 Are you able to walk independently without assistance or assistive devices? [email or web address] Information not available 03/29/2019 Do you have difficulty doing errands alone? No Information not available 09/08/2017 What is your occupation? [employer] Information not available 09/08/2017 Mental Status Question Answer Note LastModified by Organization D etails LastModified Time Do you feel stressed (tense, restless, nervous, or anxious, or unable to sleep at night)? 1 [email or web address] Information not available 03/29/2019 Do you have difficulty concentrating, remembering or making decisions? No Information no t available 09/08/2017 Family History Relationship Description Onset Age of this Age Resolved Age Notes LastModified by Organization Details LastModified Time Paternal Uncle Diabetes mellitus [email or web address] Not available 03/29 13:17:19 Paternal Uncle Disorder of thyroid gland [email or web address] Not available 2023 13:45:16 Father Disorder of thyroid gland [email or web address] Not available 2023 13:45:16 Paternal Aunt Disorder of thyroid gland Not available 2023 13:45:16 Maternal Grandfather Malignant neoplasm of lung [email or web address] Not available 2023 13:45:32 Medical History Condition [...] colitis N Cerebrovascular Disease N Depression N Guillain-[place] N Sleep Apnea N Aneurysm N Bronchitis [...] Child 22 Last Annual Exam/Provider 03/29/19 w/ [place] Date of Last Colonoscopy Frequency of Cycle [...] 03/29/19 20 cancelled patient objection Miriam Bearden, SOCIAL MEDIA MARKETING MANAGER [address], [place], [address], [facility] - [facility] 03/29/2019 14:25:28 Influenza, split virus, quadrivalent, preservative 11/26/19 18 completed Not Available [facility] 02/24/2019 03:55:22 Tdap 12/10/19 18 completed Not Available [facility] 02/24/2019 03:55:25 Hib, unspecified formulation 08/27/18 [...] 13:41:07 DTaP, unspecified formulation 04/25/19 02 completed Denia Jarvis null, [place] - [facility] 03/03/2023 13:41:07 meningococcal MCV4, unspecified formulation 08/13/19 09 completed MORGAN Rainey - [facility] 03/03/2023 13:41:07 Past Encounters Encounter ID Performer Location Encounter Start Date Encounter Closed Date Diagnosis/Indication Diagnosis SNOMED-CT Code Diagnosis ICD10 Code Diagnosis IMO Codes Diagnosis Note [id number] ESTUARDO Lopez OBJECT ORIENTED PROGRAMMER [address] [place] [address] [place] [address] 09/08/2017 08:50:02 09/08/2017 11:12:05 Routine care 312841372 Z34.91 Gestation period, 16 weeks 85432710 Z3A.16 Late entry into care 769753869 O09.32 [id number] Padmini Murry CNM [place] OBJECT [employer]IENTED PROGRAMMER [address] [place] [address] [place] [address] 09/16/2017 13:10:47 09/16/2017 13:47:21 Late entry into care 499809132 O09.32 screening 2437 18869 Z36.9 Screening for malignant neoplasm of cervix 803650416 Z12.4 Z11.3 Routine an tenatal care 823629538 Z34.02 Gestation period, 17 weeks 54501454 Z3A.17 Normal 9748302 2 Z34.92 [id number] MD Ivania Goodrich OBJECT ORIENTED PROGRAMMER [address] [place] [address] [place] [address] 7 09/30/2017 13:14:01 09/30/2017 14:59:35 Late entry into care 596939494 O09.32 Normal 3208193 2 Z34.92 Gestation period, 19 weeks 39705653 Z3A.19 screening 2437 65741 Z36.3 [id number] MD Ivania Werner OBJECT ORIENTED PROGRAMMER [address] [place] [address] [place] [address] 10/28/2017 08:18:04 10/28/2017 09:09:58 Normal 72761851 Z34.92 Late entry into care 668643252 O09.32 Gestation period, 23 weeks 71313254 Z3A.23 [id number] ESTUARDO Lay OBJECT ORIENTED PROGRAMMER [address] [place] [address] [place] [address] 7 11/25/2017 08:14:41 11/25/2017 10:28:30 Late entry into care 943553830 O09.32 Normal 3335273 2 Z34.02 screening 2437 96199 Z36.9 Gestation period, 27 weeks 49232584 Z3A.27 Vaginal discharge 632345 006 N89.8 Influenza vaccine needed 3981130153 106 Z23 Patient presents for flu vaccinatio n today. No fever. No history of egg allergy. Administer ed as below. [id number] ARMANDO Tejada OBJECT ORIENTED PROGRAMMER [address] [place] [address] [place] [address] 12/09/2017 09:48:23 12/09/2017 10:18:38 Late entry into care 262514995 O09.32 Normal 8279071 2 Z34.92 Gestation period, 29 weeks 97788786 Z3A.29 Administra tion of diphtheria, pertussis, and tetanus vaccine 390161299 Z23 [id number] ARMANDO Tejada OBJECT ORIENTED PROGRAMMER [address] [place] [address] [place] [address] 7 12/23/2017 11:05:50 12/23/2017 11:37:20 Late entry into care 536216645 O09.32 Normal 7328382 2 Z34.92 screening 2437 48463 Z36.9 Gestation period, 31 weeks 49465107 Z3A.31 [id number] ARMANDO Tejada OBJECT ORIENTED PROGRAMMER [address] [place] [address] [place] [address] 7 01/06/2018 13:25:24 01/06/2018 13:56:47 Late entry into care 898605592 O09.32 Normal 4126607 2 Z34.92 screening 2437 94816 Z36.9 Gestation period, 33 weeks 92820168 Z3A.33 [id number] ARMANDO Tejada OBJECT ORIENTED PROGRAMMER [address] [place] [address] [place] [address] 7 01/18/2018 14:59:24 01/18/2018 15:50:59 care 633539516 Z39.2 Hypertensive disorder 38 653675 I10 management 278 381225 Z39.1 [id number] Padmini Murry CNM [place] OBJECT ORIENTED PROGRAMMER [address] [place] [address] [place] [address] 01/25/2018 09:59:38 01/25/2018 10:36:37 care 663982204 Z39.2 Contracept ion care management 425924026 Z30.9 [id number] Miriam Bearden APRN [place] OBJECT ORIENTED PROGRAMMER [address] [place] [address] [place] [address] 03/29/2019 13:09:26 03/29/2019 13:50:59 Routine gynecologic examination done 9778088885 9101 Z01.419 Depression screening 171 486481 Z13.89 PHQ-9 completed today. Diet education 08291025 Z71.3 Counseling 512937388 Z71 .82 Exercise counselmaira calderon Patient encouraged to exercise 30 minutes 5 days a week. Examinatio n of blood pressure 020875123 Z01.30 Vaccine de clined by patient 4282700265 02 Z28.21 Pt declined flu vaccine today. Screening for malignant neoplasm of cervix 012990848 Z12.4 Z11.8 Patient advised that I will follow up with results. Active or passive immunization 264733204 Z23 Discussed HPV vaccine. Pt and mother are uncertain of immunizati on record.Vianey alexander send medical record request. Initiation of transdermal contraception done 9477776196 29283 Z30.018 Effectiven ess, correct use, advantages /disadvant ages, common side effects, serious complicati ons, contra-ind ications/p recautions and return to fertility were reviewed for the following: Combined oral contracept joce (pills/pat ch/ring), Progestero ne-only pills, Depo Provera injection, Nexplanon implant,Sk yla IUD, Mirena IUD, Paragard IUD. [id number] Philly Rojas APRN [address] [place] [address] 04/28/2020 10:42:33 04/28/2020 11:18:30 Body mass index 20-24 - normal 169219363 Z68.24 Left lower quadrant pain 065765161 R10.32 [id number] ESTUARDO Lay OBJECT ORIENTED PROGRAMMER [address] [place] [address] [place] [id number] 05/06/2020 09:41:41 05/06/2020 10:23:39 Pain in pelvis 41768099 R10.2 Patient will report and new or worsening symptoms. Cyst of left ovary 28214 69796 1911318 N83.202 Discussed options and pt would like to start an OCP to resolve. Patient advised to use heat to relieve cramping. Patient will take OTC pain medication s as directed. Patient will report new or worsening abdominal pain, severe vaginal bleeding, and dizziness. Finally patient advised to report moderate/s evere pain or bleeding during or after sex. Vaginal discharge 695106 006 N89.8 Reviewed the various causes of vaginal problems. Reviewed good vulvar/vag inal hygiene and ways to reduce symptoms. Will send a NuSwab today [id number] ESTUARDO Lay OBJECT ORIENTED PROGRAMMER [address] [place] [address] [place] [address] 7 06/23/2020 15:06:17 06/23/2020 16:29:37 History of chlamydial infection 937664380 Z86.19 [id number] ESTUARDO Lay OBJECT ORIENTED PROGRAMMER [address] [place] [address] [place] [id number] 7 04/07/2021 14:49:42 04/07/2021 15:15:41 Cyst of right ovary 1312003421 3729698 N83.201 2.4 right ovarian cyst noted on CT at [facility] ER at 03/24/21 appt.Pt denies any pain at this time. Reproducti ve care management [id number] Z31.9 Patient advised to get regular exercise, eat healthy foods and start a menstrual diary. [id number] ESTUARDO Lopez OBJECT ORIENTED PROGRAMMER [address] [place] [address] MORGAN Snow [id number] 03/03/2023 13:26:58 03/03/2023 14:12:57 Patient medical record not available [id number] Z76.89 Dysmenorrhea [id number] N 94.6 Health Concerns Section Related Observation LastModified by Organization Detai ls LastModified Time None Recorded Concern Status LastModified by Organization Details LastModified Time None Recorded Advance Directives Directive N: Payers Insurance Date Sequence Insurance Name Policy Number Policy Rain Covered Member ID Rain Member ID Guarantor Name 11/10/2023 1 [facility] [id number] Gen Robertson [id number] Keyona Robertson 03/03/2023 1 [employer] - MULTIPLAN [id number] [facility] [id number] Keyona Robertson 03/03/2023 1 [place] [id number] Keyona Shah [id number] Keyona Robertson Notes Date Note Type [...] has changed with her cycles. Philly Bob, SOCIAL MEDIA MARKETING MANAGER [address], [place], [address], [place] [facility] 04/28/2020 11:21:23 05/07/19 21 [...] as her pervious exam in 2019. Miriamaarti Bearden, ESTUARDO [address], [place], [address], [place] [facility] 05/06/2020 10:25:16 06/24/19 21 text/htm l ROS as noted in the HPI Patient here for MUSTAPHA for Chlamydia from 05/06/2020. Her and her partner finished meds and no sexual contact for 2 weeks after both finished. Miriamaarti Bearden, ESTUARDO [address], [place], [address], [place] [facility] 06/23/2020 16:01:20 04/08/19 22 text/htm l Emergency Department Follow-Up RecordReported by PatientEmergency Room Follow-Up RecordFor discharge information, patient reportsname of hospital/urgent care patient was seen: ([facility]),patient presented to hospital/urgent care on or around: actual date 03/24/2021,patient presented to hospital for treatment of: (abdominal pain),treatment received by hospital/urgent care:,patient's condition has: improved, andhospital records available at the time of this visit: yes. Keyona presents today for an ER follow up.She [place] [facility] [place], for abdominal pain and a [...] fertility mikayla on her phone. Miriam Bearden, SOCIAL MEDIA MARKETING MANAGER [address], [place], [address], [place] [facility] 04/07/2021 15:14:40 03/03/19 24 text/htm l ROS as noted in the HPI Keyona presents today with concerns regarding irregular bleeding pattern and pain with menses. She states menses occur every month, however, she has some months when bleeding is heavy, while others months the bleeding is inspector raw quartz. Keyona states periods are always painful on day 1. Most recently, she was unable to go into work.Keyona currently is not using control as she is currently not sexually active, and does not desire to start.She had prior care @ [facility]. She had Dx. Laparoscopy under 2 years ago and states they didn't see anything . Records requested.We had a lengthy discussion regarding tx options. She agrees to try ibuprofen 2 days prior to onset of menses and continue x 5-6 days.She will f/u if this is not helpful or prn additional concerns or needs. 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 Not doing litter boxesBottle, unsure of epidural, [facility], circ if male- plans to pump breastmilk and bottlefeed breastmilk. contraception- unsure- disc 09/30Expecting baby boy David Problem Name Start Date End Date Resolution Snomed Code Not e Late entry into care 09/08/2017 [id number] 16 weeks due t o inability to get insurance until then Active or passive immunization 09/08/2017 [id number] Tdap @ 30 wks ___11/2/18FLu vaccine - 11/25/17 screening [id number] [x] Quad Screen negativeUS 09/30 nl/complete MALE posterior placenta Korey Calculation Initial Korey Date Initial Exam Date Initial Exam Provider Initial Ultrasound Date Last Menstrual Period Date Ultra Sound Weeks Gestation 02/18/2018 09/08/2017 09/08/2017 05/14/2017 16 Eighteen To Twenty Week Korey Update Ultra Sound Date Fundal Height At Umbil Quickening Date Ultra Sound Latest Weeks Gestation Final Korey Confirmed By Final Korey Confirmed Date Final Korey Date Ultra Sound Latest Days Gestation 0 02/18/19 19 0 Pre- Flowsheet Flowsheet Date 09/08/2017 Huggins Score Blood Edema Fundus Height Fundus Units Glucose Ketones Leukocytes Nitrite Labor Signs Protein Cervic Dilation Cervic Effacement Cervic Station neg none none negative trace Negative none neg Type Weight in lbs Pre/Post Dialysis Refused 126.10337505222 BP Diastolic BP Location Tested BP Systolic [...] Type Weight in lbs Pre/Post Dialysis Refused 129.684174007419 BP Diastolic BP Location Tested BP Systolic [...] Type Weight in lbs Pre/Post Dialysis Refused 181.666393254430 BP Diastolic BP Location Tested BP Systolic BP Type 76 128 Fetus Heart Rate Present A Present Fetus Movement A Yes Comments g&a us,afm,no vb,no lof,neg leuk,neg nitr, no new complaints voiced. kh//there with , US reviewed aga, MALE, posterior placenta. nl and complete darshana . disc neg quad screen disc contraception- no prior hormonal methods, encourage, unsure; bottle; she is at [facility] . avoiding litter! nq nc rto 4 wk/ Flowsheet Date 10/28/2017 Huggins Score Blood Edema Fundus Height Fundus Units Glucose Ketones Leukocytes Nitrite Labor Signs Protein Cervic Dilation Cervic Effacement Cervic Station neg 23 cm none negative none Negative Cramping neg Type Weight in lbs Pre/Post Dialysis Refused 134.578919633672 BP Diastolic BP Location Tested BP Systolic [...] Type Weight in lbs Pre/Post Dialysis Refused 138.771675214245 BP Diastolic BP Location Tested BP Systolic [...] Type Weight in lbs Pre/Post Dialysis Refused 140.955447903057 BP Diastolic BP Location Tested BP Systolic BP Type 74 116 sitting Fetus Heart Rate Present A Present Fetus Movement A Yes Comments No vb, ,lof or unusual d/c. Discussed TDAP, [facility] info given to read, may get next visit. mdr//Baby active. TDAP given. Sinus drainage. Reviewed OTC meds. RTC 2 wks.RH Flowsheet Date 12/23/2017 Huggins Score Blood Edema Fundus Height Fundus Units Glucose Ketones Leukocytes Nitrite Labor Signs Protein Cervic Dilation Cervic Effacement Cervic Station neg none 32 cm none negative trace Negative none neg Type Weight in lbs Pre/Post Dialysis Refused 141.816199270896 BP Diastolic BP Location Tested BP Systolic [...] Type Weight in lbs Pre/Post Dialysis Refused 142.611316441522 BP Diastolic BP Location Tested BP Systolic [...] Type Weight in lbs Pre/Post Dialysis Refused 128.950048344093 BP Diastolic BP Location Tested BP Systolic [...] Estim ated Date of Delivery false Thalassemia (Thai, Kyrgyz, Mediterranean, Or Background): MCV < 80 false Neural Tube Defect (Meningomyelocele, Spina Bifi da, Or Anencephaly) false Congenital Heart Defect false Down Syndrome false Herb-Sachs (eg, Confucianist, Cajun, Chilean-Sammarinese) f alse Desire Disease false Sickle Cell Disease Or Trait () false Hemophilia Or Other Blood Disorders false Muscular Dystrophy false Cystic Fibrosis false [place]'s Chorea false Mental Retardation/Autism false If Yes, [...] 8 Sponta neous Regional-Ep idural 34.1 true [facility] None 01/11/2018 PPROM , pre E, transferr ed to , without problems there. Discharge Information Feeding Method Contraceptive Method Maternal HG B and HCT Levels Breast Unsure
[2025-02-02] MEDS: AMOXICILLIN/CLAVULANATE POTASSIUM 875/125MG TABLET 1 EACH PO (01:22)
--- NOTE | 2025-02-02 01:22 | ED_ITS ---
Discharge Plan Disposition Patient Disposition: Home, Self-Care Condition: Good Prescriptions Prescriptions: New amoxicillin-pot clavulanate 875-125 mg tablet 1 tab PO BID Qty: 10 0RF No Action Classic 28 mg iron- 800 mcg tablet 1 tab PO DAILY levothyroxine 88 mcg capsule 88 mcg PO DAILY Referrals Follow up/Referrals: Leeanne Hidalgo APRN [Primary Care Provider, Medical] - See instructions Activity Restrictions/Add. Instructions Additional Instructions/Restrictions: You were evaluated in the ER and are believed to be appropriate for discharge at this time. Take the prescribed Augmentin as directed, do not skip doses, do not stop taking it early. Make an appointment with your primary care doctor and with OB for reevaluation Return to the ER with any new, worsening, or otherwise concerning symptoms. Clinical Impressions Clinical Impression: Otitis media, right Print Language Print Language: Khmer Discharge ED Provider: Leo Garcia General Adult HPI General Chief complaint: Ear Stated complaint: R ear throbbing pain, pressure, trouble hearing Time Seen by Provider: 02/02/25 01:09 Mode of Arrival: Ambulatory Source of Information: Patient Description of Symptoms (Recalled from ER Triage Doc. by RN): Patient reports to the ED with complaints of Right ear pain that started this evening around 2129. She reports fever and congestion that started a few days ago since resolved. History of Present Illness HPI narrative: 29-year-old female currently 23 weeks G3, P2 presents to the ER with complaints of right ear pain starting this evening. History of hypothyroidism. She states she had fever, cough, congestion that started 5 days ago, fever has resolved and cough and congestion are starting to improve but she has concern for right ear infection. She states she took Tylenol prior to arrival for pain without significant improvement. She denies any headache, dizziness, numbness, tingling, or weakness. She denies any difficulty swallowing, no chest pain or difficulty breathing. Denies any abdominal pain, nausea, vomiting, or diarrhea. She states she has not had any cramping, vaginal bleeding, or vaginal discharge. Denies dysuria or hematuria. She reports good movement. Related Data Home Medications ?Medication ?Instructions ?Recorded ?Confirmed levothyroxine 88 mcg capsule 88 mcg PO DAILY 01/24/24 01/17/25 vits no.126-ferrous fum 1 tab PO DAILY 01/17/25 28 mg iron-folic acid 800 mcg tablet (Classic ) Previous Rx's ?Medication ?Instructions ?Recorded amoxicillin 875 mg-potassium 1 tab PO BID #10 tabs clavulanate 125 mg tablet Allergies Allergy/AdvReac Type Severity Reaction Status Date / Time Sulfa (Sulfonamide Allergy Intermediate I-HIVES Verified 01/17/25 11:06 Antibiotics) (SULFA (SULFONAMIDE ANTIBIOTICS)) [facility] Disclaimer: The information contained in this section may have been updated after the patient was seen, as this information can be updated by other users. Medical History Cervical shortening affecting Status post normal vaginal delivery spontaneous labor with delivery Hypothyroidism affecting , antepartum labor Hypothyroidism History of anxiety History of pre-eclampsia Surgical History Hx of wisdom tooth extraction Family History Other No significant family history Social History Smoking Status: Never smoker alcohol intake: never substance use type: denies use current occupational status: employed Travel in the last 8 weeks?: None household members: family housing: house caffeine: Yes Have you lived/traveled outside US in past 30 days?: No Contact w/someone who lives/traveled outside US past 30 days?: No Exposure to someone with infectious disease in past 14 days?: No Do you have a fever (greater than 100.4 F or 38 C)?: No Have you tested positive for COVID-19?: No Exposed to someone with COVID-19 in past 14 days?: No Do you have a sore throat?: No Do you have a cough?: No Do you have any weakness?: No Do you have any diarrhea?: No Are you experiencing any unusual bleeding?: No Do you have any muscle aches/pain?: No Do you have any abdominal pain?: No Are you experiencing loss of taste or smell?: No Other Medical History Have you received the Flu Vaccine for this season: No Have you received the Pneumonia Vaccine: No ROS Obtained: Yes Systems reviewed as appropriate & no additional complaints except as documented Per HPI Physical Exam General General appearance: alert and in no apparent distress Head Head exam: atraumatic and normocephalic Eye Eye exam: Present PERRL and EOMI ENT ENT exam: Present normal oropharynx, mucous membranes moist and other (No tonsillomegaly or exudates, normal posterior oropharynx); Absent TM's normal bilaterally (Erythematous, bulging right TM with purulent effusion) Neck Neck exam: Present normal inspection and full ROM Chest Chest inspection: Present symmetric chest wall rise Respiratory Respiratory exam: Present normal lung sounds bilaterally; Absent respiratory distress, wheezes or stridor Cardiovascular Cardiovascular exam: Present regular rate and normal rhythm Abdominal Exam Abdominal exam: Present soft; Absent distention, tenderness, guarding or rebound Comment: Gravid, nontender abdomen Extremities Exam Extremities exam: Present full ROM Neurological Exam Neurological exam: Present alert and oriented X3; Absent motor sensory deficit Psychiatric Psychiatric exam: Present normal affect and normal mood Skin Skin exam: Present warm and dry Medical Decision Making Medical Records Medical records reviewed: Yes I reviewed the patient's medical records. Screening: Per USPSTF and CDC recommendations, given the prevalence of disease in our region, it is our hospital?s policy to screen for HIV and viral Hepatitis for all patients aged 18 and over and those with ongoing risk factors. Dariel Inquiry Pt receiving controlled substance: No Vital Signs: 02/02/25 01:01 Temperature 97.8 F Temperature Source Oral Pulse Rate [Right Radial] 95 H Respiratory Rate 16 Blood Pressure [Right Arm] 109/71 L Blood Pressure Mean [Right Arm] 83 Blood Pressure Source [Right Arm] Automatic Cuff 02 Sat by Pulse Oximetry 100 Oxygen Delivery Method Room Air Orders (Tests/Meds): ED MEDICATIONS Discontinued Medications Generic Name Dose Route Start Last Admin Trade Name Freq PRN Reason Stop Dose Admin Amoxicillin/Clavulanate Potassium 1 each 02/02/25 01:09 Amoxicillin/Clavulanate Potassium 875/125mg Tablet PO 02/02/25 01:10 ONCE ONE ORDERS Category Date Time Status POCUS Point of Care (ER Only) Stat Exams 02/02/25 01:09 Ordered Medical Decision Narrative: In summary, this 29 female 28 weeks G3, P2 presents to the emergency department today with concerns of right ear pain. On initial evaluation patient is hemodynamically stable, afebrile, GCS 15, gravid, nontender abdomen, benign cardiopulmonary exam, overall patient is well-appearing but she does have erythematous bulging right TM with purulent effusion. Differential diagnosis includes but is not limited to viral syndrome, otitis externa, otitis media. Exam is consistent with otitis media. No other acute abnormalities. I did perform brief [id number] ultrasound at bedside to evaluate baby though she reports good movement. Live active intrauterine with FHR 140. See procedure note for details. Augmentin administered in the ER and prescribed. Patient was given instructions on continued symptomatic monitoring and management, follow-up, and return precautions for the ER. She indicated understanding and the patient was discharged in stable condition. Critical Care Critical Care Time Critical Care Time: No
[2025-02-02 01:27] VITALS: BP 109/71; PULSE 95; RESP 16; TEMP 36.6
== END 2025-02-02 01:29 | disposition home or self-care (01) ==
PROVIDERS: Emergency Provider Emergency Medicine; PCP Nurse Practitioner Family
DX: O26.892 Other specified pregnancy related conditions, second trimester (principal); H66.91 Otitis media, unspecified, right ear; H92.01 Otalgia, right ear; Z3A.23 23 weeks gestation of pregnancy
CPT/HCPCS: 99283